=== PATIENT | male | born 1945 | race Caucasian/White ===

== ENCOUNTER → 2016-12-04 | Outpatient (CLI) | payer BC ==
[~2016-12-04] MED LIST: ADVIN10/60 INH; ALBU1AER9 INH; CPRDOTS OT; DICL1GEL28 TOP; HYDR12.56 PO; LSN40 PO; METO-648 PO; OMEP40CA41 PO; SNG10 PO; TAMS0.4C38 PO; XRL20 PO
== END | disposition home or self-care (01) ==
LOC: C.LABSPEC 16:48
PROVIDERS: ATTEND Internal Medicine
DX: K64.8 Other hemorrhoids (principal)

== ENCOUNTER → 2017-02-28 | Outpatient (CLI) | payer BC ==
[~2017-02-28] MED LIST changes: -METO-648 PO; +METO1TAB70 PO
[2017-02-28 09:53] LABS: ALT/SGPT 112 U/L (12-78); AST/SGOT 64 U/L (15-37); BLOOD UREA NITROGEN 11 mg/dl (7-18); BUN/CREATININE RATIO 12.2 (10-20); CARBON DIOXIDE 26 mmol/L (21-32); CHLORIDE 105 mmol/L (98-107); GLUCOSE 103 mg/dl (70-99); POTASSIUM 4.3 mmol/L (3.5-5.1); SODIUM 136 mmol/L (136-145)
[2017-02-28 09:56] LABS: CHOLESTEROL 168 mg/dl (0-200); CHOLESTEROL/HDL RATIO 3.7; HDL CHOLESTEROL 45 mg/dl; LDL CHOLESTEROL CALCULATED 94 mg/dl; TRIGLYCERIDES 144 mg/dl (0-150); VERY LOW DENSITY LIPOPROT CALC 29 mg/dl
[2017-02-28 10:05] LABS: BASO % 0.6 %; BASO ABS # 0.02 K/uL (0-0.2); COMPLETE YES; EOS % 6.3 %; HEMATOCRIT 39.2 % (42-52); IG% 0.3 %; LYMPH ABS # 1.04 K/uL (1.2-3.4); MEAN CELL VOLUME 94.9 fL (80-100); MEAN CORPUSCULAR HGB CONC 33.7 g/dl (32-36); MEAN PLATELET VOLUME 10.8 fL (7.4-10.4); MONO % 14.9 %; NEUT % 46.9 %; PLATELET COUNT 160 K/uL (130-400); RED BLOOD COUNT 4.13 M/uL (4.7-6.1); WHITE BLOOD COUNT 3.35 K/uL (4.8-10.8)
== END | disposition home or self-care (01) ==
LOC: C.LAB1850 07:32
PROVIDERS: ATTEND Internal Medicine Cardiovascular Disease
DX: E78.5 Hyperlipidemia, unspecified (principal); I10 Essential (primary) hypertension

== ENCOUNTER → 2017-09-20 | Outpatient (CLI) | payer BC ==
[~2017-09-20] MED LIST changes: -METO1TAB70 PO; +METO200T31 PO
== END | disposition home or self-care (01) ==
LOC: C.LAB1850 12:41
PROVIDERS: ATTEND Internal Medicine Cardiovascular Disease
DX: E78.5 Hyperlipidemia, unspecified (principal)

== ENCOUNTER 2025-04-26 21:30 | Inpatient (IN) ==
[2025-04-26] MEDS: ONDANSETRON INJ 2 MG/ML 2 ML VIAL IV STA (21:38)
[2025-04-26] MEDS: OPTIRAY 320 100ml IV ONE (21:49)
--- NOTE | 2025-04-26 22:00 | XRay Report ---
Exam(s): XR CXR 1 VIEW EXAM: XR Chest, 1 View CLINICAL HISTORY: Reason for exam: Trauma. TECHNIQUE: Frontal view of the chest. COMPARISON: No relevant prior studies available. FINDINGS: Lungs: Unremarkable. No consolidation. Pleural space: Unremarkable. No pneumothorax. Heart: Mild cardiomegaly. Mediastinum: Unremarkable. Normal mediastinal contour. Bones/joints: Severe degenerative arthritic changes seen at the glenohumeral joints. No acute fracture. Tubes, lines and devices: Pacemaker leads seen over the cardiac silhouette. IMPRESSION: No acute pulmonary process identified Electronically signed by: Jairo Khoury MD 04/26/25 21:59 PM
[2025-04-26 22:07] LABS: Hematocrit (blood only) 34.2 % (42.0-52.0); Hemoglobin 11.3 g/dl (14.0-18.0); Immature Granulocytes # (auto) 0.02 K/uL (0.01-0.20); Immature Granulocytes % (auto) 0.4 %; Mean Corpuscular Hemoglobin 32.0 pg (25.0-34.0); Mean Corpuscular Volume 96.9 fL (80.0-100.0); Platelet Count 260 K/uL (130-400); RDW Standard Deviation 51.0 fL (36.4-46.3); Red Blood Count 3.53 M/uL (4.70-6.10); White Blood Count 5.15 K/ul (4.8-10.8)
--- NOTE | 2025-04-26 22:10 | Emergency Department Note ---
Impression & Plan Laceration of scalp, Syncope and collapse ED Provider Note Provider: Richi Dawson MD CHIEF COMPLAINT: Head bleeding, fall, passed out HISTORY OF PRESENT ILLNESS: Patient is a 79-year-old gentleman significant past medical history including CAD, GERD, hearing loss, intracranial bleed/aneurysm rupture in 2010 status post right frontal craniotomy, short-term memory issues, BPH, kidney stone presenting here today with . Patient evidently fell towards beginning of March. Wound was closed with cem. Evidently bled a week or 2 ago and was seen here and sutures were placed. Noted this evening according to some bleeding from the top of the head and then he seems little bit off. She drove him here and assisted over the bench in front of the entrance and was going in to get additional assistance. According to security cameras patient evidently was on the bench began to seem wobbly and then fell over off the bench onto the ground. There is significant bleeding from his head and he seemed unresponsive initially. Immediately brought back as a trauma alert to room a 1. Patient awakens. Denies pain complaint. Seems a bit dazed. Does not report use of his Eliquis yet this evening. Staff assisted with evaluation and IV placement during this time the patient was rolled and had was cleaned and a small area of bleeding from hematoma in the back of the head was noted and pressure was held it was bandaged. During this the patient became nauseous vomited and syncopized briefly. He then quickly regained consciousness. present states he has been doing well until just this evening when he seemed a bit off and then noted increased swelling to the back of the head and the bleeding started. She brought him here for evaluation. He is not on aspirin but continues on the Plavix and Eliquis by her report. PAST MEDICAL HISTORY: As noted above MEDICATIONS: Reviewed home medications SOCIAL HISTORY: PHYSICAL EXAM: GENERAL: alert and oriented resting on stretcher. Seems a little bit drowsy initially. Head: Patient with blood all over the scalp and blood clots noted with some small occipital hematoma and mild tenderness here. Area cleaned with peroxide and seems show approximately 2 cm hematoma the occiput with 2 pinpoint areas of small bleeding here. EYES: No injection, discharge or icterus. PERRL, EOMI. NECK: Trachea midline. Supple no cervical spine tenderness ENT: Mucous membranes pink and moist. Pharynx without erythema or exudate. LUNGS: Airway patent. No retractions. Breath sounds clear with good air entry bilaterally. HEART: Regular rate and rhythm. No chest wall tenderness ABDOMEN: Soft and non-tender, without guarding or rebound. No flank tenderness. SKIN: Acyanotic, warm, dry, without rashes EXTREMITIES: Without swelling, tenderness or deformity NEUROLOGICAL: No focal deficits. No aphasia. No facial droop or slurred speech. Normal strength and tone in the extremities. Sensation to gross touch normal. Ambulatory. EK bpm atrially paced rhythm without PVC. QTc 452. No ST segment elevation or depression. CONTINUOUS CARDIAC MONITORING: was ordered and showed a heart rate of 60s bpm in atrially paced rhythm GCS 15. Patient's labobatory studies and imaging reviewed. Differential includes Fracture, dislocation, contusion, intra-abdominal, pneumothorax, intrathoracic, intracranial, neurologic, compartment syndrome, rhabdomyolysis, as well as other pathologies. IMPRESSION/MEDICAL DECISION MAKING: Patient transient loss of consciousness. Quickly regains. Given Zofran here. Bandaging to the head wound which seems rather small on initial emergent evaluation. Sent immediately for CT scans to look for intracranial bleed from the new fall. Laboratory studies are checked. Sinha scan ordered and although really the only complaint seems to be around the head. Does have a significant history with prior intracranial bleed and craniotomy. Use of antiplatelets and anticoagulants complicate his bleeding issue. ATLS primary and secondary survey were completed. Nexus negative and cervical collar was cleared clinically upon evaluation at 213. Blood work here shows a hemoglobin 11.3 down from approximately 15 earlier in the summer. Normal platelet count of 260. No severe electrolyte abnormalities signs of renal dysfunction today. CT of the head, cervical spine, chest abdomen pelvis per radiology report without evidence of significant new acute trauma other than scalp hematoma. With nursing did rebandage and appears to have stopped but new gauze and Octavio wrap to the head was applied. Discussed with him and findings. Possibly vomited from the syncope and transient blood loss. No believe he requires transfusion at this point not hemodynamically unstable. Did again have a syncope during his last evaluation here with dressing. Will bring in at this point given the syncope and drop in blood count to monitor his head wound for any further bleeding. Given a liter of IV fluid as blood pressures are in the 90s here later. DIAGNOSIS: Bleeding scalp wound, syncope, vomiting DISPOSITION: Hospitalist will evaluate Patient was agreeable with this plan as was his . Past Med/Surg History Problem List (Updated 04/26/25 @ 22:36 by Richi Dawson M.D.) Syncope and collapse (Acute) Laceration of scalp (Acute) CHI (closed head injury) (Acute) Internal carotid artery stent present Excessive cerumen in both ear canals Right shoulder pain Sacroiliitis Positive LUIS (antinuclear antibody) Inflammatory polyarthritis Abnormal LFTs History of intracranial hemorrhage 2009 per records Impaired fasting glucose History of aortic valve replacement Chronic anticoagulation (Acute) Allergic rhinitis Bicuspid aortic valve Gastroesophageal reflux disease Incomplete emptying of bladder Vitamin B12 deficiency CAD (coronary artery disease) Cognitive changes History of colon polyps Sensorineural hearing loss (SNHL) of both ears Skin lesion of left ear Statin myopathy (Acute) Medical History Thoracic aortic aneurysm Carotid stenosis, right Dizzy spells Psoriatic arthritis Cardiac pacemaker Mitral valve insufficiency Hypertension Benign prostatic hyperplasia with urinary obstruction and other lower urinary tract symptoms Asthma Nephrolithiasis Paroxysmal atrial fibrillation Hyperlipidemia Brain aneurysm Left hand weakness GERD (gastroesophageal reflux disease) NSVT (nonsustained ventricular tachycardia) Migratory polyarthritis Abnormal liver enzymes CHF (congestive heart failure) CAD (coronary artery disease), robinson coronary artery Aortic stenosis Surgical History History of cardiac cath History of colonoscopy Hx of inguinal hernia repair Hx of vasectomy History of cataract surgery History of mitral valve repair History of tonsillectomy and adenoidectomy History of cerebral aneurysm repair History of craniotomy History of heart valve replacement Family History Father Pancreatic malignant neoplasm Malignant Pancreatic Neoplasm Colorectal cancer Denies family history of Ovarian cancer Prostate cancer Myocardial infarction Breast cancer Social History Smoking Status: Never smoker Second Hand Exposure: No; Do You Dip or Chew Tobacco: No; Hx Alcohol Use: Yes Alcohol type: wine and hard liquor Hx Substance Use: No Preferred Language: Gibraltarian Communication Ability: Effective Visual Impairment: No Limitations Hearing Ability: Normal Director Summer Sessions Required: No Beliefs That Will Affect Care: None marital status: Current Living Situation: Spouse current occupational status: retired 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, 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 [employer] Feels Safe at Home: Yes Childhood Exposure to Second-Hand Smoke: Yes Dental Care, Regularly: Yes Physical Activity Frequency: 5-6 Times per Week Physical Activity Frequency Comment: walking 3-4 miles Seatbelt Use: always Sunscreen Use: No Assistive Devices: None Allergies Allergies Allergy/AdvReac Type Severity Reaction Status Date / Time Penicillins Allergy Intermediate RASH Verified 04/20/25 13:29 atorvastatin AdvReac Intermediate Muscle Pain Verified 04/20/25 13:29 rosuvastatin [From Crestor] AdvReac Intermediate Muscle Pain Verified 04/20/25 13:29 Home Meds Home Medications Medication Instructions Recorded Confirmed cyanocobalamin (vitamin B-12) 1,000 mcg PO QAM 11/08/20 04/26/25 1,000 mcg tablet (Vitamin B-12) aspirin 81 mg chewable tablet 81 mg PO QAM 12/16/24 04/26/25 clopidogrel 75 mg tablet 75 mg PO QAM 12/16/24 04/26/25 albuterol sulfate 90 mcg/actuation 2 puff inhalation Q4 PRN Shortness 04/12/25 04/26/25 aerosol inhaler Of Breath Or Wheezing amlodipine 10 mg tablet 10 mg PO QAM 04/26/25 04/26/25 Previous Rx's Medication Instructions Recorded fluticasone 250 mcg-salmeterol 50 1 inh inhalation BID #60 ea 05/04/24 mcg/dose blistr powdr for inhalation (Wixela Inhub) pravastatin 10 mg tablet 10 mg PO DAILY #90 tabs 06/19/24 metoprolol succinate 100 mg 100 mg PO BID #180 tabs 01/27/25 tablet,extended release 24 hr Taltz Autoinjector 80 mg/mL 80 mg subcut Q28D #1 mL 02/18/25 subcutaneous (ixekizumab) apixaban 5 mg tablet (Eliquis) 5 mg PO BID #180 tabs 02/23/25 tramadol 50 mg tablet 50 mg PO Q8H PRN pain #15 tabs 04/03/25 Results & Data (ED) Vital Signs Vital Signs - 24 hr 04/26/25 21:32 04/26/25 21:32 04/26/25 21:32 Temperature 36.6 C Temperature Source Pulse Rate 72 64 Pulse Rate [Apical] Respiratory Rate 23 20 Respiratory Effort / Characteristics Respiratory Depth Respiratory Pattern Blood Pressure 111/62 111/62 Blood Pressure [Right Arm] Blood Pressure Mean 78 Blood Pressure Mean [Right Arm] Pulse Oximetry 99 99 Oxygen Delivery Method Room Air Room Air Room Air Oxygen Flow Rate 0 Sepsis Recent Fever Within 48 Hours No Sepsis New/Unexplained Change in Mental Status No Sepsis Action Taken by Nursing No Action Required 04/26/25 21:32 04/26/25 21:44 04/26/25 21:45 Temperature 36.6 C Temperature Source Oral Pulse Rate 65 Pulse Rate [Apical] 64 Respiratory Rate 20 Respiratory Effort / Characteristics Non-Labored Spontaneous Respiratory Depth Normal Respiratory Pattern Regular Blood Pressure Blood Pressure [Right Arm] 111/62 Blood Pressure Mean Blood Pressure Mean [Right Arm] 78 Pulse Oximetry 98 98 Oxygen Delivery Method Room Air Room Air Oxygen Flow Rate Sepsis Recent Fever Within 48 Hours Sepsis New/Unexplained Change in Mental Status Sepsis Action Taken by Nursing 04/26/25 22:31 Temperature Temperature Source Pulse Rate Pulse Rate [Apical] 60 Respiratory Rate 20 Respiratory Effort / Characteristics Non-Labored Spontaneous Respiratory Depth Normal Respiratory Pattern Regular Blood Pressure Blood Pressure [Right Arm] 100/58 L Blood Pressure Mean Blood Pressure Mean [Right Arm] 72 Pulse Oximetry 98 Oxygen Delivery Method Room Air Oxygen Flow Rate Sepsis Recent Fever Within 48 Hours Sepsis New/Unexplained Change in Mental Status Sepsis Action Taken by Nursing Laboratory Data 04/26/25 21:36 04/26/25 21:36 Lab Results 04/26/25 04/26/25 04/26/25 Range/Units 21:36 21:37 21:47 WBC 5.15 (4.8-10.8) K/ul RBC 3.53 L (4.70-6.10) M/uL Hgb 11.3 L (14.0-18.0) g/dl POC Hgb 11.9 L (14.0-18.0) g/dl Hct 34.2 L (42.0-52.0) % POC Hct 35 L (42-52) % MCV 96.9 (80.0-100.0) fL MCH 32.0 (25.0-34.0) pg MCHC 33.0 (32.0-36.0) g/dL RDW Std Deviation 51.0 H (36.4-46.3) fL RDW Coeff of Andres 14.5 (11.5-14.5) % Plt Count 260 (130-400) K/uL MPV 10.4 (9.4-12.4) fL Immature Gran % (Auto) 0.4 % Neut % (Auto) 52.9 % Lymph % (Auto) 28.3 % Dubois % (Auto) 12.2 % Eos % (Auto) 5.6 % Baso % (Auto) 0.6 % Neut # (Auto) 2.72 (1.40-6.50) K/uL Lymph # (Auto) 1.46 (1.20-3.40) K/uL Dubois # (Auto) 0.63 H (0.11-0.59) K/uL Eos # (Auto) 0.29 (0.00-0.50) K/uL Baso # (Auto) 0.03 (0.00-0.20) K/uL Immature Gran # (Auto) 0.02 (0.01-0.20) K/uL PT 11.0 (9.0-12.0) Seconds INR 1.0 (0.9-1.1) APTT 24 (21-31) Seconds PTT Ratio 0.9 POC Sodium 137 (135-144) mmol/L Sodium 133 L (136-145) mmol/L POC Potassium 3.8 (3.3-5.0) mmol/L Potassium 3.6 (3.5-5.1) mmol/L POC Chloride 104 (101-112) mmol/L Chloride 104 (98-107) mmol/L Carbon Dioxide 21 (21-32) mmol/L POC Total CO2 20 L (24-31) mmol/L Anion Gap 8 (3-11) POC Anion Gap 17.0 (16-25) mmol/L POC BUN 14 (7-18) mg/dl BUN 15 (6-23) mg/dl Creatinine 0.90 (0.6-1.4) mg/dl POC Creatinine 1.1 (0.6-1.3) mg/dl Est Cr Clr Drug Dosing 64.3 ml/min eGFR 87.96 BUN/Creatinine Ratio 16.7 (10-20) Glucose 116 H (70-99(Fasting)) mg/dl POC Glucose (other) 115 H (70-99) mg/dl Calcium 8.9 (8.6-10.3) mg/dl POC Ioniz Calcium Jake 1.12 (1.12-1.32) mmol/l Total Bilirubin 0.5 (0.2-1.0) mg/dl AST 46 H (13-39) U/L ALT 50 (7-52) U/L Alkaline Phosphatase 69 (34-104) U/L Total Creatine Kinase 348 H (30-223) U/L Troponin I High Sens 14.7 (0-20) pg/ml Total Protein 7.0 (6.0-8.3) gm/dl Albumin 3.8 (3.4-5.0) gm/dl Globulin 3.2 (2.5-4.0) gm/dl Albumin/Globulin Ratio 1.2 (0.9-2) Lipase 44 (11-82) U/L Blood Type A Positive Antibody Screen NEGATIVE Administered Medications Sodium Chloride (Nss) 1,000 mls @ 999 mls/hr IV .Q1H1M ONE Stop: 04/26/25 23:27 Last Admin: 04/26/25 22:29 Dose: 999 mls/hr Documented By: KATIE Discontinued Medications Ioversol (Optiray 320 100ml) 90 ml IV ONCE ONE Stop: 04/26/25 21:49 Last Admin: 04/26/25 21:49 Dose: 90 ml Documented By: FARHANA Imaging Data Radiologist's Impression: Chest X-Ray 04/26/25 21:44 Exam(s): XR CXR 1 VIEW EXAM: XR Chest, 1 View CLINICAL HISTORY: Reason for exam: Trauma. TECHNIQUE: Frontal view of the chest. COMPARISON: No relevant prior studies available. FINDINGS: Lungs: Unremarkable. No consolidation. Pleural space: Unremarkable. No pneumothorax. Heart: Mild cardiomegaly. Mediastinum: Unremarkable. Normal mediastinal contour. Bones/joints: Severe degenerative arthritic changes seen at the glenohumeral joints. No acute fracture. Tubes, lines and devices: Pacemaker leads seen over the cardiac silhouette. IMPRESSION: No acute pulmonary process identified Electronically signed by: Jairo Khoury MD 04/26/25 21:59 PM Abdomen/Pelvis CT 04/26/25 21:45 Exam(s): CT ABDOMEN + PELVIS With Contrast IV Amt: 90 ml optiray 320 EXAM: CT Abdomen and Pelvis With Intravenous Contrast CLINICAL HISTORY: Reason for exam: Trauma. TECHNIQUE: Axial computed tomography images of the abdomen and pelvis with intravenous contrast. CTDI is 23.25 mGy and DLP is 750.75 mGy-cm. Automated exposure control was utilized for the study. A dose lowering technique was utilized adhering to the principles of ALARA. CONTRAST: Patient received 90 ml optiray 320 of IV contrast COMPARISON: 01/04/2023. FINDINGS: ABDOMEN: Liver: Hepatic steatosis. Gallbladder and bile ducts: Unremarkable. Pancreas: Unremarkable. Spleen: Unremarkable. Adrenals: Unremarkable. Kidneys and ureters: Unremarkable. No obstructing stones. No hydronephrosis. Stomach and bowel: Colonic diverticulosis without acute diverticulitis. PELVIS: Appendix: No findings to suggest acute appendicitis. Bladder: Unremarkable. Reproductive: Prostatomegaly. ABDOMEN and PELVIS: Intraperitoneal space: Unremarkable. No free air. No significant fluid collection. Bones/joints: No acute fracture. Soft tissues: Unremarkable. Vasculature: Aortobiiliac atherosclerotic calcifications. Lymph nodes: Unremarkable. IMPRESSION: 1. No traumatic injury. 2. Prostatomegaly. 3. Colonic diverticulosis without acute diverticulitis. 4. Hepatic steatosis. Electronically signed by: Hardik Ying MD 04/26/25 22:[address] 04/26/25 21:45 Exam(s): CT C SPINE EXAM: CT Cervical Spine Without Intravenous Contrast CLINICAL HISTORY: Reason for exam: Trauma. TECHNIQUE: Axial computed tomography images of the cervical spine without intravenous contrast. CTDI is 25.8 mGy and DLP is 480.73 mGy-cm. Automated exposure control was utilized for the study. A dose lowering technique was utilized adhering to the principles of ALARA. COMPARISON: No relevant prior studies available. FINDINGS: Vertebrae: No fracture or malalignment. Multilevel degenerative spondylosis. No critical canal stenosis. Soft tissues: Unremarkable. IMPRESSION: No fracture or malalignment. Electronically signed by: Hardik Ying MD 04/26/25 22:[address] 04/26/25 21:45 Exam(s): CT CHEST With Contrast IV Amt: 90 ml optiray 320 EXAM: CT Chest With Intravenous Contrast CLINICAL HISTORY: Reason for exam: Trauma. TECHNIQUE: Axial computed tomography images of the chest with intravenous contrast. CTDI is 24.7 mGy and DLP is 1279.17 mGy-cm. Automated exposure control was utilized for the study. A dose lowering technique was utilized adhering to the principles of ALARA. CONTRAST: Patient received 90 ml optiray 320 of IV contrast COMPARISON: No relevant prior studies available. FINDINGS: Lungs: Lungs are clear. No pulmonary contusion. Pleural space: No pleural effusion or pneumothorax. Heart: Status post aortic and mitral valve repair. Bones/joints: No acute findings. Soft tissues: Unremarkable. Vasculature: Unremarkable. No acute aortic syndrome. Lymph nodes: Unremarkable. Liver: Severe hepatic steatosis. IMPRESSION: No acute findings in the chest. Electronically signed by: Hardik Ying MD 04/26/25 22:[address] 04/26/25 21:45 Exam(s): CT HEAD Without Contrast EXAM: CT Head Without Intravenous Contrast CLINICAL HISTORY: Reason for exam: trauma, nausea. TECHNIQUE: Axial computed tomography images of the head/brain without intravenous contrast. CTDI is 36.55 mGy and DLP is 624.41 mGy-cm. Automated exposure control was utilized for the study. A dose lowering technique was utilized adhering to the principles of ALARA. COMPARISON: 04/12/2025 FINDINGS: Brain: No hemorrhage, extra-axial fluid collection, mass effect, or edema. Ventricles: Unremarkable. Bones/joints: Unremarkable. No fracture. Soft tissues: Scalp hematoma near the vertex. Sinuses: No acute sinusitis. Mastoid air cells: Unremarkable as visualized. IMPRESSION: 1. No acute intracranial abnormality. 2. Scalp hematoma near the vertex. Electronically signed by: Hardik Ying MD 04/26/25 22:17 PM Discharge Plan Visit Data Chief Complaint: Trauma Stated Complaint: HEAD INJURY WK AGO- BLEEDING ED Provider: Richi Dawson Discharge Problem: Laceration of scalp, Syncope and collapse Patient Disposition: Being Evaluated by Hospitalist Condition: Fair Forms Stand Alone Forms: Semmx Prescriptions Prescriptions: No Action metoprolol succinate 100 mg tablet extended release 24 hr 100 mg PO BID Qty: 180 3RF Taltz Autoinjector 80 mg/mL auto-injector 80 mg subcut Q28D Qty: 1 5RF Eliquis 5 mg tablet 5 mg PO BID Qty: 180 3RF fluticasone propion-salmeterol [Wixela Inhub] 250-50 mcg/dose blister with device 1 inh inhalation BID Qty: 60 11RF pravastatin 10 mg tablet 10 mg PO DAILY Qty: 90 3RF cyanocobalamin (vitamin B-12) [Vitamin B-12] 1,000 mcg tablet 1,000 mcg PO QAM aspirin 81 mg Tablet,Chewable 81 mg PO QAM clopidogrel 75 mg tablet 75 mg PO QAM albuterol sulfate 90 mcg/actuation Hfa Aerosol Inhaler 2 puff INHALATION Q4 PRN (Reason: Shortness Of Breath Or Wheezing) amlodipine 10 mg tablet 10 mg PO QAM tramadol 50 mg tablet 50 mg PO Q8H PRN (Reason: pain) Qty: 15 0RF Referrals Referrals: Kaci Preston MD [Primary Care Provider] -
--- NOTE | 2025-04-26 22:13 | CT Scan Report ---
Exam(s): CT CHEST With Contrast IV Amt: 90 ml optiray 320 EXAM: CT Chest With Intravenous Contrast CLINICAL HISTORY: Reason for exam: Trauma. TECHNIQUE: Axial computed tomography images of the chest with intravenous contrast. CTDI is 24.7 mGy and DLP is 1279.17 mGy-cm. Automated exposure control was utilized for the study. A dose lowering technique was utilized adhering to the principles of ALARA. CONTRAST: Patient received 90 ml optiray 320 of IV contrast COMPARISON: No relevant prior studies available. FINDINGS: Lungs: Lungs are clear. No pulmonary contusion. Pleural space: No pleural effusion or pneumothorax. Heart: Status post aortic and mitral valve repair. Bones/joints: No acute findings. Soft tissues: Unremarkable. Vasculature: Unremarkable. No acute aortic syndrome. Lymph nodes: Unremarkable. Liver: Severe hepatic steatosis. IMPRESSION: No acute findings in the chest. Electronically signed by: Hardik Ying MD 04/26/25 22:13 PM
--- NOTE | 2025-04-26 22:17 | CT Scan Report ---
Exam(s): CT HEAD Without Contrast EXAM: CT Head Without Intravenous Contrast CLINICAL HISTORY: Reason for exam: trauma, nausea. TECHNIQUE: Axial computed tomography images of the head/brain without intravenous contrast. CTDI is 36.55 mGy and DLP is 624.41 mGy-cm. Automated exposure control was utilized for the study. A dose lowering technique was utilized adhering to the principles of ALARA. COMPARISON: 04/12/2025 FINDINGS: Brain: No hemorrhage, extra-axial fluid collection, mass effect, or edema. Ventricles: Unremarkable. Bones/joints: Unremarkable. No fracture. Soft tissues: Scalp hematoma near the vertex. Sinuses: No acute sinusitis. Mastoid air cells: Unremarkable as visualized. IMPRESSION: 1. No acute intracranial abnormality. 2. Scalp hematoma near the vertex. Electronically signed by: Hardik Ying MD 04/26/25 22:17 PM
--- NOTE | 2025-04-26 22:22 | CT Scan Report ---
Exam(s): CT C SPINE EXAM: CT Cervical Spine Without Intravenous Contrast CLINICAL HISTORY: Reason for exam: Trauma. TECHNIQUE: Axial computed tomography images of the cervical spine without intravenous contrast. CTDI is 25.8 mGy and DLP is 480.73 mGy-cm. Automated exposure control was utilized for the study. A dose lowering technique was utilized adhering to the principles of ALARA. COMPARISON: No relevant prior studies available. FINDINGS: Vertebrae: No fracture or malalignment. Multilevel degenerative spondylosis. No critical canal stenosis. Soft tissues: Unremarkable. IMPRESSION: No fracture or malalignment. Electronically signed by: Hardik Ying MD 04/26/25 22:21 PM
[2025-04-26 22:23] LABS: Alanine Aminotransferase 50.0 U/L (7-52); Albumin Globulin Ratio 1.2 (0.9-2); Albumin Level 3.8 gm/dl (3.4-5.0); Alkaline Phosphatase 69.0 U/L (34-104); Anion Gap 8.0 (3-11); Bilirubin,Total 0.5 mg/dl (0.2-1.0); Blood Urea Nitrogen 15.0 mg/dl (6-23); Calcium 8.9 mg/dl (8.6-10.3); Carbon Dioxide 21.0 mmol/L (21-32); Chloride 104.0 mmol/L (98-107); Creatine Kinase 348.0 U/L (30-223); Creatinine Clr Calc Pharmacy 64.3 ml/min; Globulin 3.2 gm/dl (2.5-4.0); Glucose 116.0 mg/dl (70-99(Fasting)); Lipase 44.0 U/L (11-82); Potassium 3.6 mmol/L (3.5-5.1); Sodium 133.0 mmol/L (136-145); Total Protein 7.0 gm/dl (6.0-8.3)
--- NOTE | 2025-04-26 22:25 | CT Scan Report ---
Exam(s): CT ABDOMEN + PELVIS With Contrast IV Amt: 90 ml optiray 320 EXAM: CT Abdomen and Pelvis With Intravenous Contrast CLINICAL HISTORY: Reason for exam: Trauma. TECHNIQUE: Axial computed tomography images of the abdomen and pelvis with intravenous contrast. CTDI is 23.25 mGy and DLP is 750.75 mGy-cm. Automated exposure control was utilized for the study. A dose lowering technique was utilized adhering to the principles of ALARA. CONTRAST: Patient received 90 ml optiray 320 of IV contrast COMPARISON: 01/04/2023. FINDINGS: ABDOMEN: Liver: Hepatic steatosis. Gallbladder and bile ducts: Unremarkable. Pancreas: Unremarkable. Spleen: Unremarkable. Adrenals: Unremarkable. Kidneys and ureters: Unremarkable. No obstructing stones. No hydronephrosis. Stomach and bowel: Colonic diverticulosis without acute diverticulitis. PELVIS: Appendix: No findings to suggest acute appendicitis. Bladder: Unremarkable. Reproductive: Prostatomegaly. ABDOMEN and PELVIS: Intraperitoneal space: Unremarkable. No free air. No significant fluid collection. Bones/joints: No acute fracture. Soft tissues: Unremarkable. Vasculature: Aortobiiliac atherosclerotic calcifications. Lymph nodes: Unremarkable. IMPRESSION: 1. No traumatic injury. 2. Prostatomegaly. 3. Colonic diverticulosis without acute diverticulitis. 4. Hepatic steatosis. Electronically signed by: Hardik Ying MD 04/26/25 22:24 PM
[2025-04-26] MEDS: SODIUM CHLORIDE 0.9% 1,000 ML IV ONE (22:29)
[2025-04-26 22:44] LABS: INR 1.0 (0.9-1.1); Partial Thromboplastin Time 24 Seconds (21-31); Prothrombin Time 11.0 Seconds (9.0-12.0)
[2025-04-26] MEDS: RAPID SEQUENCE INDUCTION BAG ONE (23:28)
--- NOTE | 2025-04-26 23:30 | History & Physical Report ---
Date of Service April 26, 2025 Assessment & Plan (1) Syncope and collapse: (2) Anemia due to blood loss: (3) Laceration of scalp: (4) Chronic anticoagulation: Plan The patient is a 79-year-old male with a past medical history including internal carotid artery stent, presence of pacemaker, sacroiliitis, inflammatory polyarthritis, history of intracranial hemorrhage, history AVR, history of mitral valve annuloplasty, chronic anticoagulation, GERD, incomplete bladder emptying, CAD, SNHL bilaterally, and history of statin myopathy. The patient was initially seen in the emergency department on 04/12/2025 for a scalp laceration, and received 6 cem at that time. He had been doing well until earlier in the day today when he started having some leakage of blood. His had brought him to the emergency department this evening, and had him sitting on the bench outside the emergency department while she went in to get help. When she went back out, he was lying on the ground, and was bleeding more significantly from his scalp. He reports the blood was spurting out of the laceration. While in the emergency department he did have a syncopal episode as his wound was being flushed, and had accompanying nausea and vomiting. At this time he is awake and alert, speech is slightly slower than usual. He denies any focal weakness in arms or legs. Laboratories revealed a change in hemoglobin from 15.1 at baseline to 11.3 today, however, there was no hemoglobin performed on 04/12 when he was in the emergency department at his first bleeding event. Other significant laboratory normalities, CK 348, AST 46, troponin high normal at 14.7. Imaging included CT scan of the head which showed a scalp hematoma near the vertex, otherwise normal. CT scan of chest was negative. CT scan cervical spine was negative. CT scan of abdomen and pelvis showed prostatomegaly and hepatic steatosis, with no acute findings. Patient was then referred for evaluation for admission to [facility] service. He does also have a slight scrape to his left knee, but has completely full range of motion, and reports he does not feel he needs an x-ray. He reports an average of 2 alcoholic beverages daily. He did have pacer interrogation while in the emergency department, and reported battery life was 1 month. Syncope and collapse- The patient will be admitted to telemetry for serial cardiac enzymes, serial EKG's, cardiac rhythm monitoring Most recent echocardiogram on 03/29/2025 showed ejection fraction 60-65% with no change compared to 05/07/2024 CT scan of head shows scalp hematoma near the vertex CT scan of chest is negative CT scan of cervical spine is negative CT scan of abdomen pelvis shows prostatomegaly and hepatic steatosis Hemoglobin decreased from 15.1-11.3, but no hemoglobin drawn on 04/12 when patient was in with initial scalp laceration injury Place on neurochecks per protocol Anemia due to blood loss/on chronic anticoagulation- Hemoglobin 11.3 on admission, with most recent 15.1 Hold apixaban, aspirin and clopidogrel, will consult surgery for their opinion regarding restarting Bicuspid aortic valve status post AVR/status post MV annuloplasty/CAD/hypertension- Presently relatively hypotensive with blood pressure as low as 94/56 Hold amlodipine For now decrease metoprolol from 100 mg twice daily to 50 mg twice daily Status post 1 L normal saline bolus in the ED Plasma-Lyte at 80 mL/h x 1 L Holding apixaban, aspirin and clopidogrel as noted. Consult cardiology about timing for restarting Presence of pacemaker- Interrogation was normal Pacer battery noted to be 1 month or less life remaining Cardiology to address Alcohol use- Patient reports averaging 2 alcoholic beverages daily. Will not start AWSS protocol at this point, as patient is getting neurochecks for syncopal follow up Elevated creatinine kinase- Likely secondary to fall No signs of rhabdomyolysis Repeat labs in a.m.. History of Present Illness Chief Complaint: The patient was initially seen in the emergency department on 04/12/2025 for a scalp laceration, and received 6 cem at that time. He had been doing well until earlier in the day today when he started having some leakage of blood. His had brought him to the emergency department this evening, and had him sitting on the bench outside the emergency department while she went in to get help. When she went back out, he was lying on the ground, and was bleeding more significantly from his scalp. He reports the blood was spurting out of the laceration. While in the emergency department he did have a syncopal episode as his wound was being flushed, and had accompanying nausea and vomiting. At this time he is awake and alert, speech is slightly slower than usual. He denies any focal weakness in arms or legs. Laboratories revealed a change in hemoglobin from 15.1 at baseline to 11.3 today, however, there was no hemoglobin performed on 04/12 when he was in the emergency department at his first bleeding event. Other significant laboratory normalities, CK 348, AST 46, troponin high normal at 14.7. Imaging included CT scan of the head which showed a scalp hematoma near the vertex, otherwise normal. CT scan of chest was negative. CT scan cervical spine was negative. CT scan of abdomen and pelvis showed prostatomegaly and hepatic steatosis, with no acute findings. [facility] Primary Care Provider: Kaci Preston MD The patient is a 79-year-old male with a past medical history including internal carotid artery stent, presence of pacemaker, sacroiliitis, inflammatory polyarthritis, history of intracranial hemorrhage, history AVR, history of mitral valve annuloplasty, chronic anticoagulation, GERD, incomplete bladder emptying, CAD, SNHL bilaterally, and history of statin myopathy. The patient was initially seen in the emergency department on 04/12/2025 for a scalp laceration, and received 6 cem at that time. He had been doing well until earlier in the day today when he started having some leakage of blood. His had brought him to the emergency department this evening, and had him sitting on the bench outside the emergency department while she went in to get help. When she went back out, he was lying on the ground, and was bleeding more significantly from his scalp. He reports the blood was spurting out of the laceration. While in the emergency department he did have a syncopal episode as his wound was being flushed, and had accompanying nausea and vomiting. At this time he is awake and alert, speech is slightly slower than usual. He denies any focal weakness in arms or legs. Laboratories revealed a change in hemoglobin from 15.1 at baseline to 11.3 today, however, there was no hemoglobin performed on 04/12 when he was in the emergency department at his first bleeding event. Other significant laboratory normalities, CK 348, AST 46, troponin high normal at 14.7. Imaging included CT scan of the head which showed a scalp hematoma near the vertex, otherwise normal. CT scan of chest was negative. CT scan cervical spine was negative. CT scan of abdomen and pelvis showed prostatomegaly and hepatic steatosis, with no acute findings. [facility] was then [facility] He does also have a slight scrape to his left knee, but has completely full range of motion, and reports he does not feel he needs an x-ray. He reports an average of 2 alcoholic beverages daily. He did have pacer interrogation while in the emergency department, and reported battery life was 1 month. Allergies Allergy/AdvReac Type Severity Reaction Status Date / Time Penicillins Allergy Intermediate RASH Verified 04/20/25 13:29 atorvastatin AdvReac Intermediate Muscle Pain Verified 04/20/25 13:29 rosuvastatin [From Crestor] AdvReac Intermediate Muscle Pain Verified 04/20/25 13:29 Home Medications Medication Instructions Recorded Confirmed Type cyanocobalamin (vitamin B-12) 1,000 mcg PO QAM 11/08/20 04/26/25 History 1,000 mcg tablet (Vitamin B-12) fluticasone 250 mcg-salmeterol 50 1 inh inhalation BID #60 ea 05/04/24 04/26/25 Rx mcg/dose blistr powdr for inhalation (Wixela Inhub) pravastatin 10 mg tablet 10 mg PO DAILY #90 tabs 06/19/24 04/26/25 Rx aspirin 81 mg chewable tablet 81 mg PO QAM 12/16/24 04/26/25 History clopidogrel 75 mg tablet 75 mg PO QAM 12/16/24 04/26/25 History metoprolol succinate 100 mg 100 mg PO BID #180 tabs 01/27/25 04/26/25 Rx tablet,extended release 24 hr Taltz Autoinjector 80 mg/mL 80 mg subcut Q28D #1 mL 02/18/25 04/26/25 Rx subcutaneous (ixekizumab) apixaban 5 mg tablet (Eliquis) 5 mg PO BID #180 tabs 02/23/25 04/26/25 Rx tramadol 50 mg tablet 50 mg PO Q8H PRN pain #15 tabs 04/03/25 04/26/25 Rx albuterol sulfate 90 mcg/actuation 2 puff inhalation Q4 PRN Shortness 04/12/25 04/26/25 History aerosol inhaler Of Breath Or Wheezing amlodipine 10 mg tablet 10 mg PO QAM 04/26/25 04/26/25 History Past Med/Surg History Problem List (Updated 04/27/25 @ 02:15 by Good Del Real MD) Anemia due to blood loss Syncope and collapse (Acute) Laceration of scalp (Acute) CHI (closed head injury) (Acute) Internal carotid artery stent present Excessive cerumen in both ear canals Right shoulder pain Sacroiliitis Positive LUIS (antinuclear antibody) Inflammatory polyarthritis Abnormal LFTs History of intracranial hemorrhage 2009 per records Impaired fasting glucose History of aortic valve replacement Chronic anticoagulation (Acute) Allergic rhinitis Bicuspid aortic valve Gastroesophageal reflux disease Incomplete emptying of bladder Vitamin B12 deficiency CAD (coronary artery disease) Cognitive changes History of colon polyps Sensorineural hearing loss (SNHL) of both ears Skin lesion of left ear Statin myopathy (Acute) Medical History Thoracic aortic aneurysm Carotid stenosis, right Dizzy spells Psoriatic arthritis Cardiac pacemaker Mitral valve insufficiency Hypertension Benign prostatic hyperplasia with urinary obstruction and other lower urinary tract symptoms Asthma Nephrolithiasis Paroxysmal atrial fibrillation Hyperlipidemia Brain aneurysm Left hand weakness GERD (gastroesophageal reflux disease) NSVT (nonsustained ventricular tachycardia) Migratory polyarthritis Abnormal liver enzymes CHF (congestive heart failure) CAD (coronary artery disease), [place] coronary artery Aortic stenosis Surgical History History of cardiac cath History of colonoscopy Hx of inguinal hernia repair Hx of vasectomy History of cataract surgery History of mitral valve repair History of tonsillectomy and adenoidectomy History of cerebral aneurysm repair History of craniotomy History of heart valve replacement Family History Father Pancreatic malignant neoplasm Malignant Pancreatic Neoplasm Colorectal cancer Denies family history of Ovarian cancer Prostate cancer Myocardial infarction Breast cancer Social History Smoking Status: Never smoker Second Hand Exposure: No; Do You Dip or Chew Tobacco: No; Hx Alcohol Use: Yes Alcohol type: wine and hard liquor Hx Substance Use: No Preferred Language: Sinhala Communication Ability: Effective Visual Impairment: No Limitations Hearing Ability: Normal Senior Process Analyst Required: No Beliefs That Will Affect Care: None marital status: Current Living Situation: Spouse current occupational status: retired 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, 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 [employer] Feels Safe at Home: Yes Childhood Exposure to Second-Hand Smoke: Yes Dental Care, Regularly: Yes Physical Activity Frequency: 5-6 Times per Week Physical Activity Frequency Comment: walking 3-4 miles Seatbelt Use: always Sunscreen Use: No Assistive Devices: None Review of Systems Review of Systems: The patient denies chest pain, palpitations, shortness of breath, dyspnea on exertion, cough, lower extremity swelling, sore throat, fevers, chills, sweats, diarrhea , constipation, abdominal pain, pelvic pain, blood in urine or stool, dysuria, urinary frequency or urgency, focal weakness, numbness or tingling in arms or legs, generalized arthralgias or myalgias, back or neck pain, or night sweats. The review of systems is otherwise negative other than for that already noted above, and at least 10 systems have been reviewed. Physical Exam Physical Exam: The patient is awake, alert and oriented 3, well developed and well nourished, vertex scalp laceration bandaged, lying in bed and in no acute distress. HEENT--PERRL, EOMI, mucous membranes and oropharynx mildly dry. Neck--supple. No JVD. No bruits. Thyroid normal, trachea midline, no adenopathy. Heart--normal S1 and S2. No murmurs, rubs or gallops. Paced rhythm on monitor Lungs--clear bilaterally, no respiratory distress, no accessory muscle use. Abdomen--normal bowel sounds and soft. Nontender. Nondistended, no hernias or masses, no organomegaly. Extremities--no cyanosis or clubbing. No edema. There are good distal pulses b/l. Dermatologic--normal skin turgor, normal color, no abnormal lymph nodes, no rash. Neurologic--cranial nerves II through XII grossly intact. Speech appears slightly slowed, as noted by his Rheumatologic--normal range of motion. Psychiatric--normal affect. Results & Data Results & Data Vital Signs (Past 12 Hours) Vital Signs Temp Pulse Pulse Resp BP BP Pulse Ox 04/26/25 22:31 60 20 100/58 L 98 04/26/25 21:45 65 04/26/25 21:44 98 04/26/25 21:32 36.6 C 64 20 111/62 98 04/26/25 21:32 36.6 C 64 20 111/62 04/26/25 21:32 99 04/26/25 21:32 72 23 111/62 99 O2 Del Method O2 Flow Rate 04/26/25 22:31 Room Air 04/26/25 21:45 04/26/25 21:44 Room Air 04/26/25 21:32 Room Air 04/26/25 21:32 Room Air 0 04/26/25 21:32 Room Air 04/26/25 21:32 Room Air Laboratory Results Laboratory Results WBC 5.15 K/ul (4.8-10.8) 04/26/25 21:36 RBC 3.53 M/uL (4.70-6.10) L 04/26/25 21:36 Hgb 11.3 g/dl (14.0-18.0) L 04/26/25 21:36 POC Hgb 11.9 g/dl (14.0-18.0) L 04/26/25 21:37 Hct 34.2 % (42.0-52.0) L 04/26/25 21:36 POC Hct 35 % (42-52) L 04/26/25 21:37 MCV 96.9 fL (80.0-100.0) 04/26/25 21:36 MCH 32.0 pg (25.0-34.0) 04/26/25 21:36 MCHC 33.0 g/dL (32.0-36.0) 04/26/25 21:36 RDW Std Deviation 51.0 fL (36.4-46.3) H 04/26/25 21:36 RDW Coeff of Andres 14.5 % (11.5-14.5) 04/26/25 21:36 Plt Count 260 K/uL (130-400) 04/26/25 21:36 MPV 10.4 fL (9.4-12.4) 04/26/25 21:36 Immature Gran % (Auto) 0.4 % 04/26/25 21:36 Neut % (Auto) 52.9 % 04/26/25 21:36 Lymph % (Auto) 28.3 % 04/26/25 21:36 Blount % (Auto) 12.2 % 04/26/25 21:36 Eos % (Auto) 5.6 % 04/26/25 21:36 Baso % (Auto) 0.6 % 04/26/25 21:36 Neut # (Auto) 2.72 K/uL (1.40-6.50) 04/26/25 21:36 Lymph # (Auto) 1.46 K/uL (1.20-3.40) 04/26/25 21:36 Blount # (Auto) 0.63 K/uL (0.11-0.59) H 04/26/25 21:36 Eos # (Auto) 0.29 K/uL (0.00-0.50) 04/26/25 21:36 Baso # (Auto) 0.03 K/uL (0.00-0.20) 04/26/25 21:36 Immature Gran # (Auto) 0.02 K/uL (0.01-0.20) 04/26/25 21:36 PT 11.0 Seconds (9.0-12.0) 04/26/25 21:36 INR 1.0 (0.9-1.1) 04/26/25 21:36 APTT 24 Seconds (21-31) 04/26/25 21:36 PTT Ratio 0.9 04/26/25 21:36 POC Sodium 137 mmol/L (135-144) 04/26/25 21:37 Sodium 133 mmol/L (136-145) L 04/26/25 21:36 POC Potassium 3.8 mmol/L (3.3-5.0) 04/26/25 21:37 Potassium 3.6 mmol/L (3.5-5.1) 04/26/25 21:36 POC Chloride 104 mmol/L (101-112) 04/26/25 21:37 Chloride 104 mmol/L (98-107) 04/26/25 21:36 Carbon Dioxide 21 mmol/L (21-32) 04/26/25 21:36 POC Total CO2 20 mmol/L (24-31) L 04/26/25 21:37 Anion Gap 8 (3-11) 04/26/25 21:36 POC Anion Gap 17.0 mmol/L (16-25) 04/26/25 21:37 POC BUN 14 mg/dl (7-18) 04/26/25 21:37 BUN 15 mg/dl (6-23) 04/26/25 21:36 Creatinine 0.90 mg/dl (0.6-1.4) 04/26/25 21:36 POC Creatinine 1.1 mg/dl (0.6-1.3) 04/26/25 21:37 Est Cr Clr Drug Dosing 64.3 ml/min 04/26/25 21:36 eGFR 87.96 04/26/25 21:36 BUN/Creatinine Ratio 16.7 (10-20) 04/26/25 21:36 Glucose 116 mg/dl (70-99(Fasting)) H 04/26/25 21:36 POC Glucose (other) 115 mg/dl (70-99) H 04/26/25 21:37 Calcium 8.9 mg/dl (8.6-10.3) 04/26/25 21:36 POC Ioniz Calcium Jake 1.12 mmol/l (1.12-1.32) 04/26/25 21:37 Magnesium 2.3 mg/dl (1.7-2.4) 04/26/25 21:36 Total Bilirubin 0.5 mg/dl (0.2-1.0) 04/26/25 21:36 AST 46 U/L (13-39) H 04/26/25 21:36 ALT 50 U/L (7-52) 04/26/25 21:36 Alkaline Phosphatase 69 U/L (34-104) 04/26/25 21:36 Total Creatine Kinase 348 U/L (30-223) H 04/26/25 21:36 Troponin I High Sens 14.7 pg/ml (0-20) 04/26/25 21:36 Total Protein 7.0 gm/dl (6.0-8.3) 04/26/25 21:36 Albumin 3.8 gm/dl (3.4-5.0) 04/26/25 21:36 Globulin 3.2 gm/dl (2.5-4.0) 04/26/25 21:36 Albumin/Globulin Ratio 1.2 (0.9-2) 04/26/25 21:36 Lipase 44 U/L (11-82) 04/26/25 21:36 Blood Type A Positive 04/26/25:47 Antibody Screen NEGATIVE 04/26/25 21:47 Impressions Chest X-Ray 04/26/25 21:44 Exam(s): XR CXR 1 VIEW EXAM: XR Chest, 1 View CLINICAL HISTORY: Reason for exam: Trauma. TECHNIQUE: Frontal view of the chest. COMPARISON: No relevant prior studies available. FINDINGS: Lungs: Unremarkable. No consolidation. Pleural space: Unremarkable. No pneumothorax. Heart: Mild cardiomegaly. Mediastinum: Unremarkable. Normal mediastinal contour. Bones/joints: Severe degenerative arthritic changes seen at the glenohumeral joints. No acute fracture. Tubes, lines and devices: Pacemaker leads seen over the cardiac silhouette. IMPRESSION: No acute pulmonary process identified Electronically signed by: Jairo Khoury MD 04/26/25 21:59 PM Abdomen/Pelvis CT 04/26/25 21:45 Exam(s): CT ABDOMEN + PELVIS With Contrast IV Amt: 90 ml optiray 320 EXAM: CT Abdomen and Pelvis With Intravenous Contrast CLINICAL HISTORY: Reason for exam: Trauma. TECHNIQUE: Axial computed tomography images of the abdomen and pelvis with intravenous contrast. CTDI is 23.25 mGy and DLP is 750.75 mGy-cm. Automated exposure control was utilized for the study. A dose lowering technique was utilized adhering to the principles of ALARA. CONTRAST: Patient received 90 ml optiray 320 of IV contrast COMPARISON: 01/04/2023. FINDINGS: ABDOMEN: Liver: Hepatic steatosis. Gallbladder and bile ducts: Unremarkable. Pancreas: Unremarkable. Spleen: Unremarkable. Adrenals: Unremarkable. Kidneys and ureters: Unremarkable. No obstructing stones. No hydronephrosis. Stomach and bowel: Colonic diverticulosis without acute diverticulitis. PELVIS: Appendix: No findings to suggest acute appendicitis. Bladder: Unremarkable. Reproductive: Prostatomegaly. ABDOMEN and PELVIS: Intraperitoneal space: Unremarkable. No free air. No significant fluid collection. Bones/joints: No acute fracture. Soft tissues: Unremarkable. Vasculature: Aortobiiliac atherosclerotic calcifications. Lymph nodes: Unremarkable. IMPRESSION: 1. No traumatic injury. 2. Prostatomegaly. 3. Colonic diverticulosis without acute diverticulitis. 4. Hepatic steatosis. Electronically signed by: Hardik Ying MD 04/26/25 22:[address] 04/26/25 21:45 Exam(s): CT C SPINE EXAM: CT Cervical Spine Without Intravenous Contrast CLINICAL HISTORY: Reason for exam: Trauma. TECHNIQUE: Axial computed tomography images of the cervical spine without intravenous contrast. CTDI is 25.8 mGy and DLP is 480.73 mGy-cm. Automated exposure control was utilized for the study. A dose lowering technique was utilized adhering to the principles of ALARA. COMPARISON: No relevant prior studies available. FINDINGS: Vertebrae: No fracture or malalignment. Multilevel degenerative spondylosis. No critical canal stenosis. Soft tissues: Unremarkable. IMPRESSION: No fracture or malalignment. Electronically signed by: Hardik Ying MD 04/26/25 22:[address] 04/26/25 21:45 Exam(s): CT CHEST With Contrast IV Amt: 90 ml optiray 320 EXAM: CT Chest With Intravenous Contrast CLINICAL HISTORY: Reason for exam: Trauma. TECHNIQUE: Axial computed tomography images of the chest with intravenous contrast. CTDI is 24.7 mGy and DLP is 1279.17 mGy-cm. Automated exposure control was utilized for the study. A dose lowering technique was utilized adhering to the principles of ALARA. CONTRAST: Patient received 90 ml optiray 320 of IV contrast COMPARISON: No relevant prior studies available. FINDINGS: Lungs: Lungs are clear. No pulmonary contusion. Pleural space: No pleural effusion or pneumothorax. Heart: Status post aortic and mitral valve repair. Bones/joints: No acute findings. Soft tissues: Unremarkable. Vasculature: Unremarkable. No acute aortic syndrome. Lymph nodes: Unremarkable. Liver: Severe hepatic steatosis. IMPRESSION: No acute findings in the chest. Electronically signed by: Hardik Ying MD 04/26/25 22:[address] 04/26/25 21:45 Exam(s): CT HEAD Without Contrast EXAM: CT Head Without Intravenous Contrast CLINICAL HISTORY: Reason for exam: trauma, nausea. TECHNIQUE: Axial computed tomography images of the head/brain without intravenous contrast. CTDI is 36.55 mGy and DLP is 624.41 mGy-cm. Automated exposure control was utilized for the study. A dose lowering technique was utilized adhering to the principles of ALARA. COMPARISON: 04/12/2025 FINDINGS: Brain: No hemorrhage, extra-axial fluid collection, mass effect, or edema. Ventricles: Unremarkable. Bones/joints: Unremarkable. No fracture. Soft tissues: Scalp hematoma near the vertex. Sinuses: No acute sinusitis. Mastoid air cells: Unremarkable as visualized. IMPRESSION: 1. No acute intracranial abnormality. 2. Scalp hematoma near the vertex. Electronically signed by: Hardik Ying MD 04/26/25 22:17 PM Code Status & VTE Plan Code Status full code PG Care Time/CCT Total # of Minutes Spent Total Time Spent with Patient: Total time spent is greater than 50% in coordination of care (as documented) at patient's floor/unit and/or counseling patient: Coding Level of Care Code 21130 INT INP/OBS CARE 3/75MIN Diagnoses Syncope and collapse R55 Anemia due to blood loss D50.0 Laceration of scalp S01.01XA Chronic anticoagulation Z79.01
[2025-04-27 00:07] LABS: Magnesium 2.3 mg/dl (1.7-2.4)
[2025-04-27] MEDS: PLASMA-LYTE A 1,000 ML IV SCH (01:50)
[2025-04-27] MEDS ORDERED: ALBUTEROL HFA 8 GM INHALER INH PRN (02:23)
[2025-04-27] MEDS ORDERED: ACETAMINOPHEN 325 MG TAB PO PRN (02:23)
--- NOTE | 2025-04-27 03:10 | CT Scan Report ---
EXAM: CT head/brain wo con CLINICAL HISTORY: c/o left sided head/earache s/p fall TECHNIQUE: Axial non-contrast CT scan of the brain was performed from the skull base to the high parietal region with sagittal and coronal reconstructions. One of the following dose reduction techniques was utilized for this exam: automated exposure control, adjustment of the mA and/or kV according to patient size, or use of iterative reconstruction. COMPARISON: Compared with the previous CT dated 04/12/2025. FINDINGS: Brain Parenchyma: Mild, diffuse, bilateral periventricular deep white matter hypodensity is present, representing chronic ischemic changes. There is normal attenuation of the cerebellum. There is no evidence of acute infarct, hemorrhage, or mass effect. 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 Ventricular System: The ventricular system is prominent. Subarachnoid Spaces: Prominent peripheral CSF spaces are seen within the cortical sulci, basal cisterns, both Sylvian and interhemispheric fissures. There is no evidence of subarachnoid hemorrhage or extra-axial fluid collections. Cerebellum and Brainstem: No interval change is noted regarding the area of calcification seen in the vandana. Orbits: There is normal appearance of the globes, optic nerves, and extraocular muscles. There is no evidence of orbital masses or abnormal density. Sinuses: Paranasal sinuses are clear. There is no evidence of sinusitis or mucosal thickening. Mastoid Air Cells: Mastoid air cells are clear. There is no evidence of mastoiditis. Skull: There is a right frontal craniotomy. The previously described left parietal soft tissue swelling shows an increase in size, with formation of a well-localized collection measuring approximately 3 cm in diameter, showing leveling inside, and the dependent portion reads about 70 HU (not fully imaged). IMPRESSION: 1. The previously described left parietal soft tissue swelling (not fully imaged) shows an increase in size, with formation of a well-localized collection measuring approximately 3 cm in diameter, showing leveling inside, and the dependent portion reads about 70 HU, suggesting blood product of different ages (localized subgaleal hematoma). Clinical correlation is recommended. 2. Age-related cerebral involutional changes and mild white matter chronic ischemic changes. 3. There is no evidence of acute infarct or hemorrhage. However, MRI stroke protocol is better in detecting acute infarct, if clinically warranted. 4. There is no interval change regarding the area of calcification seen in the vandana. Electronically signed by Sergey Hurley 04-27-2025 03:10 AM
[2025-04-27 06:27] LABS: Appearance Urine Clear (Clear); Glucose Urine UA Negative (Negative)
[2025-04-27 06:48] LABS: Epithelial Cell Urine 0-2 /hpf (0-2)
[2025-04-27 07:36] VITALS: PULSE 61; RESP 18; TEMP 97.9
[2025-04-27] MEDS: FLUTICASONE/VILANTEROL 200/25MCG 14 PUFFS/INHALER INH SCH (07:45)
[2025-04-27] MEDS: METOPROLOL SUCC 50MG EXT REL TAB PO SCH (07:46)
[2025-04-27] MEDS: CYANOCOBALAMIN (B-12) 500 MCG TABLET PO SCH (07:47)
[2025-04-27] MEDS: PRAVASTATIN SOD 10 MG TAB PO SCH (07:48)
--- NOTE | 2025-04-27 07:55 | Hospitalist Progress Note ---
Date of Service April 27, 2025 Assessment & Plan (1) Syncope and collapse: (2) Anemia due to blood loss: (3) Laceration of scalp: (4) Chronic anticoagulation: Plan The patient is a 79-year-old male with a past medical history including internal carotid artery stent, presence of pacemaker, sacroiliitis, inflammatory polyarthritis, history of intracranial hemorrhage, history AVR, history of mitral valve annuloplasty, chronic anticoagulation, GERD, incomplete bladder emptying, CAD, SNHL bilaterally, and history of statin myopathy. The patient was seen in the emergency department on 04/12/2025 for a scalp laceration, and received 6 cem at that time. He had been doing well until earlier on the day of admission when he started having some bleeding from the repaired site, patient was waiting to be seen when he passed out and was found on the ground with significant bleeding coming from his previously repaired laceration. He did have pacer interrogation while in the emergency department, and reported battery life was 1 month. #Syncope and collapse-likely vasovagal from sidle blood Most recent echocardiogram on 03/29/2025 showed ejection fraction 60-65% with no change compared to 05/07/2024 CT scan of head shows scalp hematoma near the vertex CT scan of chest is negative CT scan of cervical spine is negative CT scan of abdomen pelvis shows prostatomegaly and hepatic steatosis Acute blood loss anemia, hemoglobin decreased from 15.1-11.3, #Acute blood loss anemia on chronic anticoagulation- Hemoglobin 11.3 on admission, with most recent 15.1 Hold apixaban, aspirin and clopidogrel, will consult surgery for their opinion regarding restarting #Bicuspid aortic valve status post AVR/status post MV annuloplasty/CAD/hypertension- Hold amlodipine For now decrease metoprolol from 100 mg twice daily to 50 mg twice daily Holding apixaban, aspirin and clopidogrel as noted. Consult cardiology about timing for restarting #Presence of pacemaker- Interrogation was normal Pacer battery noted to be 1 month or less life remaining #Alcohol use- Patient reports averaging 2 alcoholic beverages daily. Will not start AWSS protocol at this point, as patient is getting neurochecks for syncopal follow up Admission and Anticipated Discharge Date Admission Date: April 26, 2025 Results & Data Results & Data Vital Signs (Past 12 Hours) Vital Signs Temp Pulse Pulse Resp BP BP Pulse Ox 04/27/25 07:35 97.9 F 61 18 138/66 95 04/27/25 02:23 64 04/27/25 02:23 97.7 F 65 16 124/69 97 04/27/25 02:03 67 17 116/63 99 04/27/25 02:00 67 17 116/63 99 04/27/25 01:45 62 18 109/59 L 97 04/27/25 01:30 63 16 103/63 96 04/27/25 01:00 65 17 114/67 97 04/27/25 00:30 63 20 110/60 98 04/27/25 00:00 64 18 94/56 L 97 04/26/25 23:31 65 20 104/62 99 04/26/25 23:16 67 22 123/61 99 04/26/25 22:31 60 20 100/58 L 98 04/26/25 21:45 65 04/26/25 21:44 98 04/26/25 21:32 97.9 F 64 20 111/62 98 04/26/25 21:32 97.9 F 64 20 111/62 04/26/25 21:32 99 04/26/25 21:32 72 23 111/62 99 O2 Del Method O2 Flow Rate 04/27/25 07:35 Room Air 04/27/25 02:23 04/27/25 02:23 Room Air 04/27/25 02:03 Room Air 04/27/25 02:00 Room Air 04/27/25 01:45 04/27/25 01:30 04/27/25 01:00 Room Air 04/27/25 00:30 Room Air 04/27/25 00:00 04/26/25 23:31 Room Air 04/26/25 23:16 04/26/25 22:31 Room Air 04/26/25 21:45 04/26/25 21:44 Room Air 04/26/25 21:32 Room Air 04/26/25 21:32 Room Air 0 04/26/25 21:32 Room Air 04/26/25 21:32 Room Air PG Care Time/CCT Total # of Minutes Spent Total Time Spent with Patient: Total time spent is greater than 50% in coordination of care (as documented) at patient's floor/unit and/or counseling patient: Coding Diagnoses Syncope and collapse R55 Anemia due to blood loss D50.0 Laceration of scalp S01.01XA Chronic anticoagulation Z79.01
[2025-04-27 09:17] LABS: Hematocrit (blood only) 24.3 % (42.0-52.0); Hemoglobin 8.4 g/dl (14.0-18.0); Immature Granulocytes # (auto) 0.01 K/uL (0.01-0.20); Immature Granulocytes % (auto) 0.4 %; Mean Corpuscular Hemoglobin 33.9 pg (25.0-34.0); Mean Corpuscular Volume 98.0 fL (80.0-100.0); Platelet Count 160 K/uL (130-400); RDW Standard Deviation 52.0 fL (36.4-46.3); Red Blood Count 2.48 M/uL (4.70-6.10); White Blood Count 2.85 K/ul (4.8-10.8)
[2025-04-27 09:24] LABS: Albumin Level 3.1 gm/dl (3.4-5.0); Anion Gap 4.0 (3-11); Blood Urea Nitrogen 17.0 mg/dl (6-23); Calcium 8.4 mg/dl (8.6-10.3); Carbon Dioxide 25.0 mmol/L (21-32); Chloride 108.0 mmol/L (98-107); Creatine Kinase 181.0 U/L (30-223); Creatinine Clr Calc Pharmacy 74.8 ml/min; Glucose 140.0 mg/dl (70-99(Fasting)); Magnesium 2.1 mg/dl (1.7-2.4); Potassium 4.3 mmol/L (3.5-5.1); Sodium 137.0 mmol/L (136-145)
[2025-04-27 11:13] VITALS: BP 124/62; O2SAT 97
--- NOTE | 2025-04-27 14:56 | Discharge Summary ---
Discharge Summary Date of Service April 27, 2025 Principal Dx & Hospital Course #1 = Principal Diagnosis (1) Syncope and collapse: (2) Anemia due to blood loss: (3) Laceration of scalp: (4) Chronic anticoagulation: Plan The patient is a 79-year-old male with a past medical history including internal carotid artery stent, presence of pacemaker, sacroiliitis, inflammatory polyarthritis, history of intracranial hemorrhage, history AVR, history of mitral valve annuloplasty, chronic anticoagulation, GERD, incomplete bladder emptying, CAD, SNHL bilaterally, and history of statin myopathy. The patient was seen in the emergency department on 04/12/2025 for a scalp laceration, and received 6 cem at that time. He had been doing well until earlier on the day of admission when he started having some bleeding from the repaired site, patient was waiting to be seen when he passed out and was found on the ground with significant bleeding coming from his previously repaired laceration. He did have pacer interrogation while in the emergency department, and reported battery life was 1 month. #Syncope and collapse-likely vasovagal Most recent echocardiogram on 03/29/2025 showed ejection fraction 60-65% with no change compared to 05/07/2024 CT scan of head shows scalp hematoma near the vertex CT scan of chest is negative CT scan of cervical spine is negative CT scan of abdomen pelvis shows prostatomegaly and hepatic steatosis Acute blood loss anemia, hemoglobin decreased from 15.1-11.3- 8.4, no additional bleeding,no arrythmia, bp stable #Acute blood loss anemia on chronic anticoagulation- Hemoglobin 11.3 on admission, dropped to 8.4, clinicall stable Hold apixaban additional 2 days, aspirin and clopidogrel with recent TCAR in December recommend close outpt follow up ordered cbc for 2 days after dc to Dr Amaro #Bicuspid aortic valve status post AVR/status post MV annuloplasty/CAD/hypertension- amlodipine return to home metoprolol dosing Holding apixaban,restart aspirin and clopidogrel as noted. return to cardiology as outpt #Presence of pacemaker- Interrogation was normal Pacer battery noted to be 1 month or less life remaining Offered pt and to stay for another day for observation, they elected to be dc today Notes For Next Care Provider follow acute blood loss anemia and reassure that ok from [place] to restart apixiban in 2 days Admission HPI Per Admitting Provider The patient is a 79-year-old male with a past medical history including internal carotid artery stent, presence of pacemaker, sacroiliitis, inflammatory polyarthritis, history of intracranial hemorrhage, history AVR, history of mitral valve annuloplasty, chronic anticoagulation, GERD, incomplete bladder emptying, CAD, SNHL bilaterally, and history of statin myopathy. The patient was initially seen in the emergency department on 04/12/2025 for a scalp laceration, and received 6 cem at that time. He had been doing well until earlier in the day today when he started having some leakage of blood. His had brought him to the emergency department this evening, and had him sitting on the bench outside the emergency department while she went in to get help. When she went back out, he was lying on the ground, and was bleeding more significantly from his scalp. He reports the blood was spurting out of the laceration. While in the emergency department he did have a syncopal episode as his wound was being flushed, and had accompanying nausea and vomiting. At this time he is awake and alert, speech is slightly slower than usual. He denies any focal weakness in arms or legs. Laboratories revealed a change in hemoglobin from 15.1 at baseline to 11.3 today, however, there was no hemoglobin performed on 04/12 when he was in the emergency department at his first bleeding event. Other significant laboratory normalities, CK 348, AST 46, troponin high normal at 14.7. Imaging included CT scan of the head which showed a scalp hematoma near the vertex, otherwise normal. CT scan of chest was negative. CT scan cervical spine was negative. CT scan of abdomen and pelvis showed prostatomegaly and hepatic steatosis, with no acute findings. Patient was then referred for evaluation for admission to [facility]. He does also have a slight scrape to his left knee, but has completely full range of motion, and reports he does not feel he needs an x-ray. He reports an average of 2 alcoholic beverages daily. He did have pacer interrogation while in the emergency department, and reported battery life was 1 month. Discharge Exam pleasant in no distress head wound is with hematoma and eschar, no active bleeding cardiac is regular with murmur Discharge Plan Discharge Items Patient Disposition: Home - Self-Care Reason For Visit: SYNCOPE, ANEMIA DUE TO BLOOD LOSS Discharge Diagnosis: vasovagal syncope due to bleeding acute blood loss anemia Condition on Discharge: Fair Activity: Per Instructions section Activity Comment: limit strenusous activity for 5-7 days Non-emergency contact: Primary Care Provider Call non-emergency contact if: your symptoms worsen Follow-up/Referrals: Kaci Preston MD [Primary Care Provider] - 05/03/25 10:00 am (Primary Care hospital follow up scheduled on 05/03/25 at 10:00 with Marina MERRILL) Diet: Heart Healthy Ambulatory Orders: Complete Blood Count no Diff (Routine) Timeframe: 2 Days Location: Determined by Patient Ordered By: Shree Culver Addtl Attending Provider Instructions: please avoid re injury to your scalp, when washing use a gentle touch, avoid brushes or cervantes to area for a few weeks follow up with Dr Amaro if bleeding re occurs, use pressure or ice to help stop, if unsuccessful return to ER Addtl Business Lawyer Provider Instructions: please follow up with Dr Mckeon nurse to discuss your aspirin, Plavix and Eliquis consider a multivitamin with iron or eating some red meat to help build up your anemia please get blood work on 04/29/25 Pending Studies at Discharge: No Stand-Alone Forms: My [employer], Smoking Cessation Medications and DC Order Prescriptions: Continued metoprolol succinate 100 mg tablet extended release 24 hr 100 mg PO BID Qty: 180 3RF Taltz Autoinjector 80 mg/mL auto-injector 80 mg subcut Q28D Qty: 1 5RF fluticasone propion-salmeterol [Wixela Inhub] 250-50 mcg/dose blister with device 1 inh inhalation BID Qty: 60 11RF pravastatin 10 mg tablet 10 mg PO DAILY Qty: 90 3RF cyanocobalamin (vitamin B-12) [Vitamin B-12] 1,000 mcg tablet 1,000 mcg PO QAM aspirin 81 mg Tablet,Chewable 81 mg PO QAM clopidogrel 75 mg tablet 75 mg PO QAM albuterol sulfate 90 mcg/actuation Hfa Aerosol Inhaler 2 puff INHALATION Q4 PRN (Reason: Shortness Of Breath Or Wheezing) amlodipine 10 mg tablet 10 mg PO QAM tramadol 50 mg tablet 50 mg PO Q8H PRN (Reason: pain) Qty: 15 0RF Held Eliquis 5 mg tablet 5 mg PO BID Qty: 180 3RF Hold Instructions: Resume on 04/29/25. restart blood thinner in am 04/29/25 Discharge Orders: Discharge Order (Routine); Ordered 04/27/25 Ordered By: Shree Culver Admission Data Admit Date/Time: 04/26/25 23:51 Attending Provider: Shree Culver Admit Provider: Good Del Real Primary Care Provider: Kaci Preston V. Other Providers: Good Del Real; Srikanth Dinero Hospital Stay Data Consultations 04/26/25 22:51 ED Decision to Admit Stat 04/27/25 02:23 Consult Cardiology Routine Diagnostic Imagining Performed 04/26/25 21:45 CT abd pelvis IV con only Stat CT cervical spine wo con Stat CT chest diagnostic w con Stat CT head/brain wo con Stat 04/27/25 01:00 CT head/brain wo con Stat Pending Results Patient Have Any Pending Studies at Discharge: No Discharge Instructions Given to Patient (Per Discharging Provider) please avoid re injury to your scalp, when washing use a gentle touch, avoid brushes or cervantes to area for a few weeks follow up with Dr Amaro if bleeding re occurs, use pressure or ice to help stop, if unsuccessful return to ER Total Time Total Time Spent Total Time Spent (In Minutes): I personally have spent greater than 30 minutes of time on the patient discharge today including review of tests, documentation, exam, and discussing treatment plan moving forward with the patient. Coding Level of Care Code 99399 INP/OBS DISCH >30 MIN Diagnoses Syncope and collapse R55 Anemia due to blood loss D50.0 Laceration of scalp S01.01XA Chronic anticoagulation Z79.01
--- NOTE | 2025-04-29 06:18 | Electrocardiogram Report ---
Test Reason : Blood Pressure : */* mmHG Vent. Rate : 62 BPM Atrial Rate : 62 BPM P-R Int : 260 ms QRS Dur : 96 ms QT Int : 446 ms P-R-T Axes : 51 59 80 degrees QTcB Int : 452 ms Atrial-paced rhythm with prolonged AV conduction Septal infarct (cited on or before 12-Apr-2025) Abnormal ECG When compared with ECG of 12-Apr-2025 21:55, No significant change was found Confirmed by Glen Bunch ([id number]) on 04/29/2025 6:17:46 AM Referred By: REFERRED SELF Confirmed By: Glen Bunch
--- NOTE | 2025-04-29 06:18 | Electrocardiogram Report ---
Test Reason : Blood Pressure : */* mmHG Vent. Rate : 67 BPM Atrial Rate : 67 BPM P-R Int : 180 ms QRS Dur : 92 ms QT Int : 410 ms P-R-T Axes : 75 45 70 degrees QTcB Int : 433 ms Normal sinus rhythm Septal infarct (cited on or before 12-Apr-2025) Nonspecific ST abnormality Abnormal ECG When compared with ECG of 26-Apr-2025 22:00, Sinus rhythm has replaced Electronic atrial pacemaker Confirmed by Glen Bunch ([id number]) on 04/29/2025 6:18:29 AM Referred By: REFERRED SELF Confirmed By: Glen Bunch
--- NOTE | 2025-04-29 07:08 | Coding Query ---
CODING QUERY To promote full compliance with coding requirements relating to patient care, provider participation is requested in all cases of inker and opaquer uncertainty. Please assist us with the question(s) below: Coding Question(s): The Discharge Summary documents, regarding syncope, " vasovagal syncope due to bleeding". Please specify regarding the bleeding that is causing syncope during this admission: ( ) Bleeding is from complication of previous suture repair of previous scalp laceration with re-bleeding ( ) Bleeding is an adverse effect from chronic anticoagulation (xxx ) Bleeding is from new hematoma of scalp after falling off bench ( ) Bleeding is from Other: Please specify Physician's Response(s): Thank you Shavon Arana Principal Diagnosis: "that condition established after study, to be chiefly responsible for occasioning the admission of the patient to the hospital for care." Co-Existing Principal Diagnosis: "when two or more diagnoses equally meet the criteria for principal diagnosis as determined by the circumstances of admission, diagnostic work up, and/or therapy provided, and the Alphabetic Index, Tabular List, or another coding guideline does not provide sequencing direction, any one of the diagnoses may be sequenced first." "When the physician has documented what appears to be a current diagnosis in the body of the record, but has not included the diagnosis in the final diagnostic statement, the physician should be asked whether the diagnosis should be added." (Source [facility]oding [facility] 2 QTR90. p3-4) BECKY
== END 2025-04-27 17:55 | disposition home or self-care (01) | DRG 605 ==
LOC: ED 21:30 → SUATTDRO 23:51 → 2E 23:51

== ENCOUNTER 2025-05-04 10:38 | Inpatient (IN) ==
--- NOTE | 2025-05-04 11:06 | Emergency Department Note ---
Impression & Plan Bacteremia due to Enterococcus, Acute UTI, Acute pain of right hip ED Provider Note Name: LIBRA DUONG Age: 79 Sex: Male Arrives Via: Walk-In Informant: Patient, family ED Provider: Galen Bales MD Chief Complaint: Positive blood culture Impression: As per impressions above Medical Decision Making: Pleasant 79-year-old gentleman who had a syncopal event a week ago and spent some time in the hospital. He was then seen 2 days ago for UTI-like symptoms. Cultures had been obtained at that time. He then started on Cipro and discharged home. Notes since getting home he has been having some worsening right hip pain but otherwise no acute other concerning symptoms. Blood cultures ended up growing out 1 bottle of Enterococcus but he is also growing the same bacteria out of his urine. This must be presumed a positive blood culture at this point. Patient does not appear overtly septic on arrival though he is likely bacteremic. We proceeded to repeat the blood cultures along with getting a septic workup. He is not hypotensive he does not have an elevated lactate do not feel that 30/kg IV fluids is indicated in this patient. Patient was discussed with pharmacist who advised he be started on ertapenem and daptomycin IV which I think is a reasonable approach. Patient does have some right hip pain. There is no clear evidence of true septic joint quite yet and x-rays are just showing some osteoarthritis. Clearly this will need further workup and evaluation but given clear plan for hospitalization will defer to hospitalist team for management. Triage/Nursing Notes reviewed by Me External Chart Review by me: Reviewed a discharge summary note from 04/27/2025 discussing patient's recent hospitalization stay Differential: Viral syndrome, UTI, endocarditis, septic joint, pneumonia, influenza, meningitis, urinary tract infection, sepsis, bacteremia, as well as other pathologies. Vital Signs: reviewed and remarkable for no significant abnormalities Interventions: Vancomycin IV Labs:ED labs Reviewed by me and remarkable for elevated procalcitonin Imaging:Chest x-ray as per my interpretation no infiltrate or effusion appreciated EKG:As per my interpretation. Indication illness. Normal sinus rhythm at 84 bpm QTc of 415. There is no ectopy nor ischemia. When compared EKG 27 April 2025 there is no significant change. Cardiac/Tele Monitoring: Cardiac Monitoring: An Order was placed for continuous cardiac monitoring. The monitor shows a rate of 80 with a normal sinus rhythm. Consults:Discussed with hospitalist who will further evaluate and Plan: Disposition:Hospitalization. Condition: Fair History of Present Illness: 79-year-old gentleman arrives for evaluation illness. Patient notes that he has had a complicated last month with a fall a few weeks ago following a syncopal event and head injury. He was hospitalized and discharged. He notes he has been feeling creasing weak and some urinary burning thus came to the ER 2 days ago. He was diagnosed with a UTI. He was started on Cipro. Patient states he took the Cipro yesterday but he has been developing worsening right hip pain. He feels like the hip pain was worse after taking the Cipro and thus he has not taken it again. This morning he received a call from the ER advising him to come back as he is now growing blood culture positive Enterococcus. He also is growing Enterococcus out of his urine. Patient denies any current fevers, chills, nausea, vomiting. He has not had any falls, trauma, injuries since the fall a few weeks ago. He is not having any lightheadedness or syncope. He just feels very weak and tired. Does have a bit of urinary burning still. No diarrhea. Past Medical History:See Below Home Medications:See Below Allergies: Penicillins (rash as a child), atorvastatin, rosuvastatin Vitals:Blood Pressure: 173/82, Pulse 85, RR 18, T 36.7C, O2 97% on RA Physical Exam: GENERAL: Patient is tired appearing and in minimal distress. HEAD: Healing hematoma over top of head. No fluctuance, no drainage, no TTP RESPIRATORY: No dyspnea. Clear to auscultation and equal bilaterally. CARDIOVASCULAR: Regular rate and rhythm.No murmur appreciated. GASTROINTESTINAL: Abdomen soft, non-tender, no peritonitis. EXTREMITIES: Discomfort with lifting right leg in hip without TTP. Otherwise normal motion all extremities, no cyanosis, no edema. NEUROLOGIC: Alert and oriented. No focal neurologic deficits appreciated SKIN: No rash, no jaundice, no diaphoresis. PSYCH: Appropriate GCS: 15 ED Course: Times/Reassessments: Patient stable on repeat evaluation Galen Bales MD Past Med/Surg History Problem List (Updated 05/06/25 @ 05:51 by Galen Bales MD) Acute pain of right hip (Acute) Dizziness (Acute) Left parietal scalp hematoma (Acute) Right hip pain UTI (urinary tract infection) Bacteremia due to Enterococcus (Acute) Nausea (Acute) Dehydration (Acute) Acute UTI (Acute) Hyperlipidemia statin intolerance Hypertension Balance problems Frequent falls Internal carotid artery stent present Excessive cerumen in both ear canals Sacroiliitis Positive LUIS (antinuclear antibody) Inflammatory polyarthritis Abnormal LFTs History of intracranial hemorrhage 2009 per records Impaired fasting glucose History of aortic valve replacement Allergic rhinitis Bicuspid aortic valve Gastroesophageal reflux disease Incomplete emptying of bladder Vitamin B12 deficiency CAD (coronary artery disease) Cognitive changes History of colon polyps Sensorineural hearing loss (SNHL) of both ears Skin lesion of left ear Statin myopathy (Acute) Medical History (Updated 05/06/25 @ 05:51 by Galen Bales MD) Episode of syncope Chronic anticoagulation Right shoulder pain Laceration of scalp Thoracic aortic aneurysm mild aneurysmal dilatation of the visualized ascending thoracic aorta which measures up to 4.1 cm per 01/04/23 A/P CT scan Carotid stenosis, right 80% stenosis of right ICA Dizzy spells Intermittent x two years per vascular records Psoriatic arthritis Follows with rheum Cardiac pacemaker s/p complete heart block Jul 2011- DDDR pacemaker Mitral valve insufficiency s/p Jordyn-Camarena mitral valve ring, #28, July 2011 Benign prostatic hyperplasia with urinary obstruction and other lower urinary tract symptoms Asthma Nephrolithiasis passed on own Paroxysmal atrial fibrillation Dx 2009> pacer/ Xarelto Brain aneurysm - with repair> [facility] > was in hospital for 12 weeks > 2009 - stable findings following right frontal craniotomy per 10/[address] - CT angiogram 02/03/2013- post surgical changes - no longer needs to follow with neuro per PCP office visit 11/2024 Left hand weakness 2022- PCP recommended PT Rheum ordered EMG testing at 11/2024 appt GERD (gastroesophageal reflux disease) hx> none at present NSVT (nonsustained ventricular tachycardia) Migratory polyarthritis Abnormal liver enzymes stable x years per PCP records; daily alcohol use CHF (congestive heart failure) follows with Dr. Dinero EF 60-65% on 04/2024 ECHO CAD (coronary artery disease), [place] coronary artery - non interveneable RCA, July 2011 - 30 to 40% LAD and OM 3, small nondominant RCA with moderate disease, April 2018 Aortic stenosis severe secondary to bicuspid AV Jordyn-Camarena pericardial AVR #21 (2011) Later TAVR 2018 Surgical History History of cardiac cath 2018 no stents History of colonoscopy Hx of inguinal hernia repair Hx of vasectomy History of cataract surgery bilat History of mitral valve repair 2012 History of tonsillectomy and adenoidectomy History of cerebral aneurysm repair 2010 History of craniotomy 2009 (brain aneurysm) History of heart valve replacement 2012= AVR > [place] Later TAVR in 2018 in [place] Family History Father Pancreatic malignant neoplasm Malignant Pancreatic Neoplasm Colorectal cancer Denies family history of Ovarian cancer Prostate cancer Myocardial infarction Breast cancer Social History Smoking Status: Never smoker Second Hand Exposure: No; Do You Dip or Chew Tobacco: No; Hx Alcohol Use: Yes Alcohol type: wine and hard liquor Hx Substance Use: No Preferred Language: Italian Communication Ability: Effective Visual Impairment: No Limitations Hearing Ability: Normal Counter Helper Required: No Beliefs That Will Affect Care: None marital status: Current Living Situation: Spouse current occupational status: retired 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, 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 [employer] Feels Safe at Home: Yes Childhood Exposure to Second-Hand Smoke: Yes Dental Care, Regularly: Yes Physical Activity Frequency: 5-6 Times per Week Physical Activity Frequency Comment: walking 3-4 miles Seatbelt Use: always Sunscreen Use: No Assistive Devices: Cane, Walker and Wheelchair Allergies Allergies Allergy/AdvReac Type Severity Reaction Status Date / Time Penicillins Allergy Intermediate RASH Verified 04/20/25 13:29 atorvastatin AdvReac Intermediate Muscle Pain Verified 04/20/25 13:29 rosuvastatin [From Crestor] AdvReac Intermediate Muscle Pain Verified 04/20/25 13:29 Home Meds Home Medications Medication Instructions Recorded Confirmed cyanocobalamin (vitamin B-12) 1,000 mcg PO QAM 11/08/20 05/04/25 1,000 mcg tablet (Vitamin B-12) clopidogrel 75 mg tablet 75 mg PO QAM 12/16/24 05/04/25 albuterol sulfate 90 mcg/actuation 2 puff inhalation Q4 PRN Shortness 04/12/25 05/04/25 aerosol inhaler Of Breath Or Wheezing amlodipine 10 mg tablet 10 mg PO QAM 04/26/25 05/04/25 Previous Rx's Medication Instructions Recorded pravastatin 10 mg tablet 10 mg PO DAILY #90 tabs 06/19/24 metoprolol succinate 100 mg 100 mg PO BID #180 tabs 01/27/25 tablet,extended release 24 hr Taltz Autoinjector 80 mg/mL 80 mg subcut Q28D #1 mL 02/18/25 subcutaneous (ixekizumab) apixaban 5 mg tablet (Eliquis) 5 mg PO BID #180 tabs 02/23/25 fluticasone 250 mcg-salmeterol 50 1 inh inhalation BID #60 ea 04/29/25 mcg/dose blistr powdr for inhalation (Wixela Inhub) ciprofloxacin HCl 500 mg tablet 500 mg PO Q12H #20 tabs 05/02/25 Results & Data (ED) Vital Signs Vital Signs - 24 hr 05/04/25 10:45 05/04/25 10:53 05/04/25 11:02 Temperature 36.7 C Temperature Source Temporal Artery Scan Pulse Rate 85 77 Pulse Rate [Right Finger] 86 Pulse Rhythm Regular Pulse Rhythm [Right Finger] Regular Pulse Strength [Right Finger] Normal Respiratory Rate 18 18 19 Respiratory Effort / Characteristics Non-Labored Spontaneous Non-Labored Spontaneous Respiratory Depth Normal Normal Respiratory Pattern Regular Blood Pressure 173/82 H Blood Pressure [Right Arm] 174/82 H Blood Pressure Mean 112 Blood Pressure Mean [Right Arm] 112 Blood Pressure Position [Right Arm] Sitting Pulse Oximetry 97 95 99 Oxygen Delivery Method Room Air Room Air Room Air Sepsis Recent Fever Within 48 Hours No Sepsis New/Unexplained Change in Mental Status No Sepsis Action Taken by Nursing No Action Required 05/04/25 11:02 05/04/25 11:14 Temperature Temperature Source Pulse Rate 93 H Pulse Rate [Right Finger] 86 Pulse Rhythm Pulse Rhythm [Right Finger] Regular Pulse Strength [Right Finger] Normal Respiratory Rate 19 Respiratory Effort / Characteristics Non-Labored Spontaneous Respiratory Depth Normal Respiratory Pattern Regular Blood Pressure Blood Pressure [Right Arm] 174/82 H Blood Pressure Mean Blood Pressure Mean [Right Arm] 112 Blood Pressure Position [Right Arm] Sitting Pulse Oximetry 100 Oxygen Delivery Method Room Air Sepsis Recent Fever Within 48 Hours Sepsis New/Unexplained Change in Mental Status Sepsis Action Taken by Nursing Laboratory Data 05/04/25 11:23 05/04/25 11:23 Lab Results 05/04/25 05/04/25 Range/Units 11:23 11:46 WBC 4.98 (4.8-10.8) K/ul RBC 2.81 L (4.70-6.10) M/uL Hgb 9.5 L (14.0-18.0) g/dl Hct 28.3 L (42.0-52.0) % MCV 100.7 H (80.0-100.0) fL MCH 33.8 (25.0-34.0) pg MCHC 33.6 (32.0-36.0) g/dL RDW Std Deviation 57.2 H (36.4-46.3) fL RDW Coeff of Andres 15.5 H (11.5-14.5) % Plt Count 153 (130-400) K/uL MPV 11.0 (9.4-12.4) fL Immature Gran % (Auto) 0.8 % Neut % (Auto) 75.1 % Lymph % (Auto) 6.4 % [place] % (Auto) 17.3 % Eos % (Auto) 0.2 % Baso % (Auto) 0.2 % Neut # (Auto) 3.74 (1.40-6.50) K/uL Lymph # (Auto) 0.32 L (1.20-3.40) K/uL [place] # (Auto) 0.86 H (0.11-0.59) K/uL Eos # (Auto) 0.01 (0.00-0.50) K/uL Baso # (Auto) 0.01 (0.00-0.20) K/uL Immature Gran # (Auto) 0.04 (0.01-0.20) K/uL VBG pH 7.37 (7.36-7.41) VBG pCO2 37 L (38-50) mmHg VBG pO2 36 mmHg VBG HCO3 21 mmol/L VBG O2 Saturation < 60.0 % VBG Base Excess -3.5 mEq/L Sodium 131 L (136-145) mmol/L Potassium 4.2 (3.5-5.1) mmol/L Chloride 102 (98-107) mmol/L Carbon Dioxide 22 (21-32) mmol/L Anion Gap 7 (3-11) BUN 17 (6-23) mg/dl Creatinine 0.78 (0.6-1.4) mg/dl Est Cr Clr Drug Dosing Not Reportable eGFR 91.85 BUN/Creatinine Ratio 21.8 H (10-20) Glucose 130 H (70-99(Fasting)) mg/dl Lactate 1.7 (0.4-2.0) mmol/L Calcium 8.9 (8.6-10.3) mg/dl Magnesium 2.0 (1.7-2.4) mg/dl Total Bilirubin 0.7 (0.2-1.0) mg/dl Direct Bilirubin 0.2 (0-0.2) mg/dl AST 39 (13-39) U/L ALT 46 (7-52) U/L Alkaline Phosphatase 65 (34-104) U/L Troponin I High Sens 17.6 (0-20) pg/ml Total Protein 7.3 (6.0-8.3) gm/dl Albumin 3.9 (3.4-5.0) gm/dl Procalcitonin 6.14 H (0-0.5) ng/ml Urine Color Yellow Urine Appearance Clear (Clear) Urine pH 7.5 (4.5-7.5) Ur Specific [place] 1.014 (1.000-1.030) Urine Protein Negative (Negative) Urine Glucose (UA) Negative (Negative) Urine Ketones Trace H (Negative) Urine Blood Negative (Negative) Urine Nitrite Negative (Negative) Urine Bilirubin Negative (Negative) Urine Urobilinogen Negative (Negative) Ur Leukocyte Esterase Trace H (Negative) Urine WBC (Auto) 0-5 (0-5) /hpf Urine RBC (Auto) 0-2 (0-2) /hpf U Hyaline Cast (Auto) 0-2 (0-2) /lpf U Epithel Cells (Auto) 0-2 (0-2) /hpf Urine Bacteria (Auto) None Seen (None Seen) Urine Comment Enterococc faecalis PCR DETECTED A (NotDetected) Toribio/B-Vanco Res Genes VRE Not Detected (NotDetected) Bld Cult ID Panel PCR See PCR Comment (NotDetected) Administered Medications Hydrocodone Bitart/Acetaminophen (Hydrocodone/Acetaminophen 10/325 Tab) 1 tab PO Q6H PRN PRN Reason: Pain Stop: 05/09/25 16:13 Last Admin: 05/05/25 16:26 Dose: 1 tab Documented By: MILEY Amlodipine Besylate (Amlodipine Besylate 5 Mg Tab) 10 mg PO [facility] Stop: 06/04/25 08:59 Last Admin: 05/05/25 12:10 Dose: 10 mg Documented By: MILEY Clopidogrel Bisulfate (Clopidogrel Bisulfate 75 Mg Tab) 75 mg PO [facility] Stop: 06/04/25 08:59 Last Admin: 05/05/25 12:10 Dose: 75 mg Documented By: MILEY Cyanocobalamin (Cyanocobalamin (B-12) 500 Mcg Tablet) 1,000 mcg PO [facility] Stop: 06/04/25 08:59 Last Admin: 05/05/25 12:10 Dose: 1,000 mcg Documented By: MILEY Fluticasone/Vilanterol (Fluticasone/Vilanterol 200/25mcg 14 Puffs/Inhaler) 1 puffs INH DAILY [facility]; Protocol Stop: 06/04/25 08:59 Last Admin: 05/05/25 12:10 Dose: 1 puffs Documented By: MILEY Daptomycin 700 mg/ Syringe 14 mls @ 7 mls/min IV Q24H [facility]; Protocol Stop: 05/18/25 15:59 Last Admin: 05/05/25 15:30 Dose: 7 mls/min Documented By: Admin: 05/04/25 16:36 Dose: 7 mls/min Documented By: TARSHA Metoprolol Succinate (Metoprolol Succ 50mg Ext Rel Tab) 100 mg PO BID [facility] Stop: 06/03/25 20:59 Last Admin: 05/05/25 20:17 Dose: 100 mg Documented By: Admin: 05/05/25 12:10 Dose: 100 mg Documented By: Admin: 05/04/25 22:36 Dose: 100 mg Documented By: BARBARA Pravastatin Sodium (Pravastatin Sod 10 Mg Tab) 10 mg PO DAILY [facility] Stop: 06/04/25 08:59 Last Admin: 05/05/25 12:10 Dose: 10 mg Documented By: MILEY Discontinued Medications Hydrocodone Bitart/Acetaminophen (Hydrocodone/Acetaminophen 10/325 Tab) 1 tab PO ONCE ONE Stop: 05/04/25 12:34 Last Admin: 05/04/25 13:08 Dose: 1 tab Documented By: THERESA Benzocaine/Butamben/Tetracaine HCl (Benzocaine/Tetracain/Butam 50 Appln/5 Gm Can) Confirm Administered Dose 50 appln EXT .STK-MED ONE Stop: 05/05/25 10:28 Last Admin: 05/05/25 12:54 Dose: Not Given Documented By: TLM Sodium Chloride (Nss) 500 mls @ 999 mls/hr IV .Q31M EMILE Stop: 05/04/25 11:30 Last Infusion: 05/04/25 14:13 Dose: Infused Documented By: Admin: 05/04/25 12:43 Dose: 999 mls/hr Documented By: akv Vancomycin HCl 1,750 mg/ (Sodium Chloride) 535 mls @ 200 mls/hr IV NOW STA Stop: 05/04/25 13:44 Last Infusion: 05/04/25 16:06 Dose: Infused Documented By: mbu Admin: 05/04/25 12:44 Dose: 200 mls/hr Documented By: akfrank Sodium Chloride (Nss) 500 mls @ 60 mls/hr IV .Q8H20M EMILE Stop: 05/04/25 21:34 Last Infusion: 05/04/25 22:13 Dose: Infused Documented By: Admin: 05/04/25 14:13 Dose: 60 mls/hr Documented By: THERESA Ioversol (Optiray 320 125ml) 118 ml IV ONCE ONE Stop: 05/04/25 14:58 Last Admin: 05/04/25 14:57 Dose: 118 ml Documented By: KSF Imaging Data Radiologist's Impression: Chest X-Ray 05/04/25 10:53 XR chest 1V portable CLINICAL HISTORY: Sepsis COMPARISON STUDY: 05/02/2025 FINDINGS: Stable cardiac valve repair and pacemaker. Stable cardiomegaly with mild pulmonary vascular congestion. Inspiration is shallow. There is interval mild stranding opacity at the right lung base. No other consolidation or pleural effusion. No pneumothorax. IMPRESSION: 1. Mild CHF. 2. Atelectasis versus early pneumonia right lung base. ACT 112: Negative or not required by law. Electronically signed by: Andres Hutchinson M.D. 05/04/2025 11:43 AM Hip/Pelvis X-Ray 05/04/25 11:01 XR hip RT 2V w pelvis CLINICAL HISTORY: Right hip pain, sepsis. COMPARISON: Pelvis radiograph January 04, 2023. CT of the abdomen and pelvis April 26, 2025. FINDINGS: The sacroiliac joints and symphysis pubis are intact. There are no fractures within the pelvis or hips. No suspicious osseous lesions are identified. There is mild to moderate osteoarthritis of both hips. IMPRESSION: 1. No fractures within the pelvis or hips. 2. Mild to moderate bilateral hip osteoarthritis. ACT 112: Negative or not required by law. Electronically signed by: Silver Carroll M.D. 05/04/2025 11:44 AM Discharge Plan Visit Data Chief Complaint: Abnormal Labs/Diagnostic Testing Stated Complaint: BLOOD CULTURES, REF BY DOC ED Provider: Galen Bales Discharge Problem: Bacteremia due to Enterococcus, Acute UTI, Acute pain of right hip Patient Disposition: Admitted As Inpatient Condition: Fair Discharge Instructions Interventions: ED Discharge Assessment Last Done: 05/04/25 13:34
[2025-05-04 11:42] LABS: Base Excess VBG -3.5 mEq/L; HCO3 VBG 21 mmol/L; Oxygen Saturation VBG < 60.0 %; PCO2 VBG 37 mmHg (38-50); PO2 VBG 36 mmHg; pH VBG 7.37 (7.36-7.41)
--- NOTE | 2025-05-04 11:44 | XRay Report ---
XR chest 1V portable CLINICAL HISTORY: Sepsis COMPARISON STUDY: 05/02/2025 FINDINGS: Stable cardiac valve repair and pacemaker. Stable cardiomegaly with mild pulmonary vascular congestion. Inspiration is shallow. There is interval mild stranding opacity at the right lung base. No other consolidation or pleural effusion. No pneumothorax. IMPRESSION: 1. Mild CHF. 2. Atelectasis versus early pneumonia right lung base. ACT 112: Negative or not required by law. Electronically signed by: Andres Hutchinson M.D. 05/04/2025 11:43 AM
--- NOTE | 2025-05-04 11:46 | XRay Report ---
XR hip RT 2V w pelvis CLINICAL HISTORY: Right hip pain, sepsis. COMPARISON: Pelvis radiograph January 04, 2023. CT of the abdomen and pelvis April 26, 2025. FINDINGS: The sacroiliac joints and symphysis pubis are intact. There are no fractures within the pe lvis or hips. No suspicious osseous lesions are identified. There is mild to moderate osteoarthritis of both hips. IMPRESSION: 1. No fractures within the pelvis or hips. 2. Mild to moderate bilateral hip osteoarthritis. ACT 112: Negative or not required by law. Electronically signed by: Silver Carroll M.D. 05/04/2025 11:44 AM
[2025-05-04 11:47] LABS: Hematocrit (blood only) 28.3 % (42.0-52.0); Hemoglobin 9.5 g/dl (14.0-18.0); Immature Granulocytes # (auto) 0.04 K/uL (0.01-0.20); Immature Granulocytes % (auto) 0.8 %; Mean Corpuscular Hemoglobin 33.8 pg (25.0-34.0); Mean Corpuscular Volume 100.7 fL (80.0-100.0); Platelet Count 153 K/uL (130-400); RDW Standard Deviation 57.2 fL (36.4-46.3); Red Blood Count 2.81 M/uL (4.70-6.10); White Blood Count 4.98 K/ul (4.8-10.8)
[2025-05-04 12:02] LABS: Alanine Aminotransferase 46 U/L (7-52); Albumin Level 3.9 gm/dl (3.4-5.0); Alkaline Phosphatase 65 U/L (34-104); Anion Gap 7 (3-11); Bilirubin,Total 0.7 mg/dl (0.2-1.0); Blood Urea Nitrogen 17 mg/dl (6-23); Calcium 8.9 mg/dl (8.6-10.3); Carbon Dioxide 22 mmol/L (21-32); Chloride 102 mmol/L (98-107); Glucose 130 mg/dl (70-99(Fasting)); Magnesium 2.0 mg/dl (1.7-2.4); Potassium 4.2 mmol/L (3.5-5.1); Sodium 131 mmol/L (136-145); Total Protein 7.3 gm/dl (6.0-8.3)
[2025-05-04] MEDS: SODIUM CHLORIDE 0.9% 500 ML IV SCH ×2 (12:43→14:13)
[2025-05-04] MEDS: VANCOMYCIN HCL 1,750 MG in SODIUM CHLORIDE 0.9% 500 ML IV STA (12:44)
--- NOTE | 2025-05-04 12:55 | History & Physical Report ---
Date of Service May 04, 2025 Assessment & Plan (1) Bacteremia due to Enterococcus: Plan: Ella Mccracken is a 79 yo male with PMH of brain aneurysm and SAD, CAD with bypass surgery; AVR, mitral valve, incomplete bladder emptying, psoiartic arthritis, pacemaker, he was admitted from 04/26-04/27 with fall and syncope episode. normally, he can walk several miles per days on 05/04/2025, he's presented to our hospital with bacteremia, right hip pain, dizziness, he's was in our ED a day prior with UTI and dc with ciprofloxacin echo was ordered to r/o vegetation, given his hx of psoaritis arthritis, right hip MRI and pelvis MRI was order to r/o fluid collection 1. bacteremia from E. facelis 2. syncope event 3. right hip pain 4. hx of AvR and mitral valve annuloplasty, CAD with bypass 5. hx of carotid stent on plavix 6. 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 psoriatic arthritis 8. A-fib on eliquis 9. sick sinus with pacemaker 10. GERD 11. hx of statin myopathy 1. bacteremia, from E facelis vancomycin, ID evaluation, echo to r/o vegetation last colonoscopy was more than 10 years ago 2. syncope event. CTA to brain aneurysm EEG, check ammonia level noted he has subarachnoid hemorrhage 10-15 years from brain aneurysm 3. acute right hip pain, denied hx of trauma, or hip repair f/u on hip MRI and pelvis MRI 4. b/l carotid stenosis, carotid stent on plavix patient has Right TCAR procedure on December 2024 5. psoriatic arthritis, he's on Taltz auto-injector 6. A-fib, eliquis 5mg BID, metoprolol XL 100mg 7. hypertension, amlodipine 10mg daily 8. asthma, he's on fluticasone-salmeterol 100 mcg-50mg q12 hours 9, CAD with bypass surgery 10-15 years ago, pravastatin 10mg he's on aspirin and plavix 10. b12 deficiency, b12 1000mcg (2) UTI (urinary tract infection): (3) Right hip pain: History of Present Illness Chief Complaint: bacteremia right hip pain hx of cardiac valve repair falling and syncope episode normally walk several miles per day Primary Care Provider: Kaci Preston MD Ella Muñoz is a 79 yo male with PMH Of sacroiliitis, A-fib on eliquis, subarachnoid hemorrhage 10-15 years ago at [facility], hx of AVR, mitral valve annuloplasty, CAD s/p bypass surgery 13-14 years ago at [facility],psoriatic arthritis, kidney stones, asthma, BPH, outflow obstruction, coloni polyps he was in the hospital from for bleeding from scalp laceration site, passing out episode, and noted to has blood loss anemia on elquis, he's has pacemaker interrogated on that admission. yesterdady, he's was having dysuria, and came to our ED, and prescribed ciprofloxin, however, he was found to has bacteremia from enterooccus and return to ED for evaluation he was started on vancomycin on interview, he was also having right posterior hip pain, stated pain became significant when he put weight on it, he also been having dizziness episode for his Enteroccus faecalis bacteremia, he stated his colonoscopy was more than 10 years ago. for his syncope, no chest pain, no palpitation, no shortness of breath. no headache he's will need admission to medicine services for IV antibiotics, echo was ordered to r/o vegetation, ID was consulted his stated he is DNR, DNI Allergies Allergy/AdvReac Type Severity Reaction Status Date / Time Penicillins Allergy Intermediate RASH Verified 04/20/25 13:29 atorvastatin AdvReac Intermediate Muscle Pain Verified 04/20/25 13:29 rosuvastatin [From Crestor] AdvReac Intermediate Muscle Pain Verified 04/20/25 13:29 Home Medications Medication Instructions Recorded Confirmed Type cyanocobalamin (vitamin B-12) 1,000 mcg PO QAM 11/08/20 05/04/25 History 1,000 mcg tablet (Vitamin B-12) pravastatin 10 mg tablet 10 mg PO DAILY #90 tabs 06/19/24 05/04/25 Rx clopidogrel 75 mg tablet 75 mg PO QAM 12/16/24 05/04/25 History metoprolol succinate 100 mg 100 mg PO BID #180 tabs 01/27/25 05/04/25 Rx tablet,extended release 24 hr Taltz Autoinjector 80 mg/mL 80 mg subcut Q28D #1 mL 02/18/25 05/04/25 Rx subcutaneous (ixekizumab) apixaban 5 mg tablet (Eliquis) 5 mg PO BID #180 tabs 02/23/25 05/04/25 Rx albuterol sulfate 90 mcg/actuation 2 puff inhalation Q4 PRN Shortness 04/12/25 05/04/25 History aerosol inhaler Of Breath Or Wheezing amlodipine 10 mg tablet 10 mg PO QAM 04/26/25 05/04/25 History fluticasone 250 mcg-salmeterol 50 1 inh inhalation BID #60 ea 04/29/25 05/04/25 Rx mcg/dose blistr powdr for inhalation (Wixela Inhub) ciprofloxacin HCl 500 mg tablet 500 mg PO Q12H #20 tabs 05/02/25 05/04/25 Rx Past Med/Surg History Problem List (Updated 05/04/25 @ 12:45 by Gris Marmolejo DO) Right hip pain UTI (urinary tract infection) Bacteremia due to Enterococcus Nausea (Acute) Dehydration (Acute) Acute UTI (Acute) Hyperlipidemia statin intolerance Hypertension Balance problems Frequent falls Internal carotid artery stent present Excessive cerumen in both ear canals Sacroiliitis Positive LUIS (antinuclear antibody) Inflammatory polyarthritis Abnormal LFTs History of intracranial hemorrhage 2009 per records Impaired fasting glucose History of aortic valve replacement Allergic rhinitis Bicuspid aortic valve Gastroesophageal reflux disease Incomplete emptying of bladder Vitamin B12 deficiency CAD (coronary artery disease) Cognitive changes History of colon polyps Sensorineural hearing loss (SNHL) of both ears Skin lesion of left ear Statin myopathy (Acute) Medical History (Updated 05/04/25 @ 12:45 by Gris Marmolejo DO) Episode of syncope Chronic anticoagulation Right shoulder pain Laceration of scalp Thoracic aortic aneurysm mild aneurysmal dilatation of the visualized ascending thoracic aorta which measures up to 4.1 cm per 01/04/23 A/P CT scan Carotid stenosis, right 80% stenosis of right ICA Dizzy spells Intermittent x two years per vascular records Psoriatic arthritis Follows with rheum Cardiac pacemaker s/p complete heart block Jul 2011- DDDR pacemaker Mitral valve insufficiency s/p Jordyn-Camarena mitral valve ring, #28, July 2011 Benign prostatic hyperplasia with urinary obstruction and other lower urinary tract symptoms Asthma Nephrolithiasis passed on own Paroxysmal atrial fibrillation Dx 2009> pacer/ Xarelto Brain aneurysm - with repair> [facility] > was in hospital for 12 weeks > 2009 - stable findings following right frontal craniotomy per 10/[address] - CT angiogram 02/03/2013- post surgical changes - no longer needs to follow with neuro per PCP office visit 11/2024 Left hand weakness 2022- PCP recommended PT Rheum ordered EMG testing at 11/2024 appt GERD (gastroesophageal reflux disease) hx> none at present NSVT (nonsustained ventricular tachycardia) Migratory polyarthritis Abnormal liver enzymes stable x years per PCP records; daily alcohol use CHF (congestive heart failure) follows with Dr. Dinero EF 60-65% on 04/2024 ECHO CAD (coronary artery disease), otoe-[place]ou[place] coronary artery - non interveneable RCA, July 2011 - 30 to 40% LAD and OM 3, small nondominant RCA with moderate disease, April 2018 Aortic stenosis severe secondary to bicuspid AV Jordyn-Camarena pericardial AVR #21 (2011) Later TAVR 2018 Surgical History (Updated 04/29/25 @ 00:07 by Nicolasa Buckley) History of cardiac cath 2018 no stents History of colonoscopy Hx of inguinal hernia repair Hx of vasectomy History of cataract surgery bilat History of mitral valve repair 2011 History of tonsillectomy and adenoidectomy History of cerebral aneurysm repair 2009 History of craniotomy 2009 (brain aneurysm) History of heart valve replacement 2012= AVR > Mile Later TAVR in 2018 in [place] Family History Father Pancreatic malignant neoplasm Malignant Pancreatic Neoplasm Colorectal cancer Denies family history of Ovarian cancer Prostate cancer Myocardial infarction Breast cancer Social History Smoking Status: Never smoker Second Hand Exposure: No; Do You Dip or Chew Tobacco: No; Hx Alcohol Use: Yes Alcohol type: wine and hard liquor Hx Substance Use: No Preferred Language: Ivorian Communication Ability: Effective Visual Impairment: No Limitations Hearing Ability: Normal Synthetic Cloth Binding Cutter Required: No Beliefs That Will Affect Care: None marital status: Current Living Situation: Spouse current occupational status: retired 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[employer], 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 [employer] Feels Safe at Home: Yes Childhood Exposure to Second-Hand Smoke: Yes Dental Care, Regularly: Yes Physical Activity Frequency: 5-6 Times per Week Physical Activity Frequency Comment: walking 3-4 miles Seatbelt Use: always Sunscreen Use: No Assistive Devices: None Review of Systems Review of Systems: Constitutional: No Weight Change, No Fever, No Chills, No Night Sweats, No Fatigue, No Malaise Neuro: + for syncope; + for hx of brain aneursym; no loss of consciousness; no gait change Cardiovascular: No Chest Pain, No SOB, No PND, No Dyspnea on Exertion, No Orthopnea, No Claudication, No Edema, No Palpitations + for hx of valve repair, + for hx of CAD with bypass surgery Respiratory: No Cough, No Sputum, No Wheezing, No Smoke Exposure, No Dyspnea Gastrointestinal: No Nausea, No Vomiting, No Diarrhea, No Constipation, No Pain, No Heartburn, No Anorexia, No Dysphagia, No Hematochezia, No Melena, No Flatulence, No Jaundice Genitourinary: + for dysuria;+ for hematuria Musculoskeletal: no neck pain; + for right hip pain Heme/Lymph: No Bruising, No Bleeding, No Transfusions History, No Lympha denopathy Endocrine: No Polyuria, No Polydipsia, No Temperature Intolerance Physical Exam Physical Exam: VITALS: Reviewed. WEIGHT/BMI reviewed. GEN: Healthy appearing, well-developed, NAD. PSYCH: Good Judgment. AOx3. Normal memory, mood, and affect. HEENT MSK: right hip is painful to external rotation; sacrum painful to palpation -Head: NC/AT; -Eyes: PERRL, EOMI. No discharge or redn ess; NECK: Supple, with no masses. CV: + for murmur; RRR LUNGS: CTAB, no w/r/c. ABD: Soft, NT/ND, NBS, no masses or organomegaly. : N/A SKIN: Warm, well perfused. No skin rashes or abnormal lesions. EXT: No clubbing, cyanosis, or edema. NEURO: CN 2-12 grossly intact; AAox3; normal finger to nose Results & Data Results & Data Vital Signs (Past 12 Hours) Vital Signs Temp Pulse Resp BP Pulse Ox O2 Del Method 05/04/25 11:14 93 H 05/04/25 10:53 77 18 95 Room Air 05/04/25 10:45 36.7 C 85 18 173/82 H 97 Room Air Laboratory Results Laboratory Results - last 72 hr 05/04/25 11:23 WBC 4.98 RBC 2.81 L Hgb 9.5 L Hct 28.3 L MCV 100.7 H MCH 33.8 MCHC 33.6 RDW Std Deviation 57.2 H RDW Coeff of Andres 15.5 H Plt Count 153 MPV 11.0 Immature Gran % (Auto) 0.8 Neut % (Auto) 75.1 Lymph % (Auto) 6.4 [place] % (Auto) 17.3 Eos % (Auto) 0.2 Baso % (Auto) 0.2 Neut # (Auto) 3.74 Lymph # (Auto) 0.32 L [place] # (Auto) 0.86 H Eos # (Auto) 0.01 Baso # (Auto) 0.01 Immature Gran # (Auto) 0.04 VBG pH 7.37 VBG pCO2 37 L VBG pO2 36 VBG HCO3 21 VBG O2 Saturation < 60.0 VBG Base Excess -3.5 Sodium 131 L Potassium 4.2 Chloride 102 Carbon Dioxide 22 Anion Gap 7 BUN 17 Creatinine 0.78 Est Cr Clr Drug Dosing Not Reportable eGFR 91.85 BUN/Creatinine Ratio 21.8 H Glucose 130 H Lactate 1.7 Calcium 8.9 Magnesium 2.0 Total Bilirubin 0.7 Direct Bilirubin 0.2 AST 39 ALT 46 Alkaline Phosphatase 65 Troponin I High Sens 17.6 Total Protein 7.3 Albumin 3.9 Procalcitonin 6.14 H Diagnostic Findings Laboratory Results WBC 4.98 K/ul (4.8-10.8) 05/04/25 11:23 RBC 2.81 M/uL (4.70-6.10) L 05/04/25 11:23 Hgb 9.5 g/dl (14.0-18.0) L 05/04/25 11:23 Hct 28.3 % (42.0-52.0) L 05/04/25 11:23 MCV 100.7 fL (80.0-100.0) H 05/04/25 11:23 MCH 33.8 pg (25.0-34.0) 05/04/25 11:23 MCHC 33.6 g/dL (32.0-36.0) 05/04/25 11:23 RDW Std Deviation 57.2 fL (36.4-46.3) H 05/04/25 11:23 RDW Coeff of Andres 15.5 % (11.5-14.5) H 05/04/25 11:23 Plt Count 153 K/uL (130-400) 05/04/25 11:23 MPV 11.0 fL (9.4-12.4) 05/04/25 11:23 Immature Gran % (Auto) 0.8 % 05/04/25 11:23 Neut % (Auto) 75.1 % 05/04/25 11:23 Lymph % (Auto) 6.4 % 05/04/25 11:23 [place] % (Auto) 17.3 % 05/04/25 11:23 Eos % (Auto) 0.2 % 05/04/25 11:23 Baso % (Auto) 0.2 % 05/04/25 11:23 Neut # (Auto) 3.74 K/uL (1.40-6.50) 05/04/25 11:23 Lymph # (Auto) 0.32 K/uL (1.20-3.40) L 05/04/25 11:23 [place] # (Auto) 0.86 K/uL (0.11-0.59) H 05/04/25 11:23 Eos # (Auto) 0.01 K/uL (0.00-0.50) 05/04/25 11:23 Baso # (Auto) 0.01 K/uL (0.00-0.20) 05/04/25 11:23 Immature Gran # (Auto) 0.04 K/uL (0.01-0.20) 05/04/25 11:23 VBG pH 7.37 (7.36-7.41) 05/04/25 11:23 VBG pCO2 37 mmHg (38-50) L 05/04/25 11:23 VBG pO2 36 mmHg 05/04/25 11:23 VBG HCO3 21 mmol/L 05/04/25 11:23 VBG O2 Saturation < 60.0 % 05/04/25 11:23 VBG Base Excess -3.5 mEq/L 05/04/25 11:23 Sodium 131 mmol/L (136-145) L 05/04/25 11:23 Potassium 4.2 mmol/L (3.5-5.1) 05/04/25 11:23 Chloride 102 mmol/L (98-107) 05/04/25 11:23 Carbon Dioxide 22 mmol/L (21-32) 05/04/25 11:23 Anion Gap 7 (3-11) 05/04/25 11:23 BUN 17 mg/dl (6-23) 05/04/25 11:23 Creatinine 0.78 mg/dl (0.6-1.4) 05/04/25 11:23 Est Cr Clr Drug Dosing Not Reportable 05/04/25 11:23 eGFR 91.85 05/04/25 11:23 BUN/Creatinine Ratio 21.8 (10-20) H 05/04/25 11:23 Glucose 130 mg/dl (70-99(Fasting)) H 05/04/25 11:23 Lactate 1.7 mmol/L (0.4-2.0) 05/04/25 11:23 Calcium 8.9 mg/dl (8.6-10.3) 05/04/25 11:23 Magnesium 2.0 mg/dl (1.7-2.4) 05/04/25 11:23 Total Bilirubin 0.7 mg/dl (0.2-1.0) 05/04/25 11:23 Direct Bilirubin 0.2 mg/dl (0-0.2) 05/04/25 11:23 AST 39 U/L (13-39) 05/04/25 11:23 ALT 46 U/L (7-52) 05/04/25 11:23 Alkaline Phosphatase 65 U/L (34-104) 05/04/25 11:23 Troponin I High Sens 17.6 pg/ml (0-20) 05/04/25 11:23 Total Protein 7.3 gm/dl (6.0-8.3) 05/04/25 11:23 Albumin 3.9 gm/dl (3.4-5.0) 05/04/25 11:23 Procalcitonin 6.14 ng/ml (0-0.5) H 05/04/25 11:23 Impressions Chest X-Ray 05/04/25 10:53 XR chest 1V portable CLINICAL HISTORY: Sepsis COMPARISON STUDY: 05/02/2025 FINDINGS: Stable cardiac valve repair and pacemaker. Stable cardiomegaly with mild pulmonary vascular congestion. Inspiration is shallow. There is interval mild stranding opacity at the right lung base. No other consolidation or pleural effusion. No pneumothorax. IMPRESSION: 1. Mild CHF. 2. Atelectasis versus early pneumonia right lung base. ACT 112: Negative or not required by law. Electronically signed by: Andres Hutchinson M.D. 05/04/2025 11:43 AM Hip/Pelvis X-Ray 05/04/25 11:01 XR hip RT 2V w pelvis CLINICAL HISTORY: Right hip pain, sepsis. COMPARISON: Pelvis radiograph January 04, 2023. CT of the abdomen and pelvis April 26, 2025. FINDINGS: The sacroiliac joints and symphysis pubis are intact. There are no fractures within the pelvis or hips. No suspicious osseous lesions are identified. There is mild to moderate osteoarthritis of both hips. IMPRESSION: 1. No fractures within the pelvis or hips. 2. Mild to moderate bilateral hip osteoarthritis. ACT 112: Negative or not required by law. Electronically signed by: Silver Carroll M.D. 05/04/2025 11:44 AM PG Care Time/CCT Total # of Minutes Spent Total Time Spent with Patient: Total time spent is greater than 50% in coordination of care (as documented) at patient's floor/unit and/or counseling patient: Coding Level of Care Code 48064 INT INP/OBS CARE 2/55MIN Diagnoses Bacteremia due to Enterococcus R78.81; B95.2 UTI (urinary tract infection) N39.0 Right hip pain M25.551 Time Spent (min) 50
[2025-05-04 13:08] LABS: Appearance Urine Clear (Clear); Bacteria Urine Automated None Seen (None Seen); Cast Urine Automated 0-2 /lpf (0-2); Epithelial Cell Urine Auto 0-2 /hpf (0-2); Glucose Urine UA Negative (Negative); RBC Urine Automated 0-2 /hpf (0-2); WBC Urine Automated 0-5 /hpf (0-5)
[2025-05-04] MEDS ORDERED: ALBUTEROL HFA 8 GM INHALER INH PRN (13:33)
[2025-05-04] MEDS: OPTIRAY 320 125ml IV ONE (14:57)
--- NOTE | 2025-05-04 15:12 | XCELERA ---
[id number]
--- NOTE | 2025-05-04 15:17 | CT Scan Report ---
CT hip RT wo/w con CLINICAL HISTORY: Right hip pain. COMPARISON STUDY: Right hip radiographs performed earlier today. CT of the abdomen and pelvis Octobe r 2024. TECHNIQUE: Axial images of the right hip were obtained before and after intravenous administration of 118 cc Optiray 320 IV. Coronal and sagittal reformats were viewed. A dose lowering technique was uti lized adhering to the principles of ALARA. FINDINGS: Incidental note is made of moderate enlargement of the prostate. The prostate measures 5.7 cm in transverse diameter. The bladder is distended. These findings are better depicted on the abdome n and pelvis CT which will be reported separately. Alignment of the right hip is anatomic. There is n o fracture. No osseous lesions are present. There is moderate posterior hip joint space narrowing. Th ere is associated osteophytosis. There is no evidence for avascular necrosis of the right femoral hea d. No fluid collection is identified. Minimal subcutaneous stranding of the lateral right thigh is un changed. There is no right inguinal lymphadenopathy. IMPRESSION: 1. No fractures within the right hip. 2. Moderate right hip osteoarthritis. ACT 112: Negative or not required by law. Electronically signed by: Silver Carroll M.D. 05/04/2025 3:15 PM
--- NOTE | 2025-05-04 15:22 | Electrocardiogram Report ---
Test Reason : Blood Pressure : */* mmHG Vent. Rate : 84 BPM Atrial Rate : 84 BPM P-R Int : 152 ms QRS Dur : 78 ms QT Int : 352 ms P-R-T Axes : 49 31 88 degrees QTcB Int : 415 ms Normal sinus rhythm When compared with ECG of 27-Apr-2025 06:38, No significant change was found Confirmed by Jerzy Kahn ([id number]) on 05/04/2025 3:21:42 PM Referred By: Galen Bales Confirmed By: Jerzy Kahn
--- NOTE | 2025-05-04 15:25 | CT Scan Report ---
CT angio head w con CLINICAL HISTORY: 79 years-old Male with syncope, hx of brain aneursym. Acute syncope COMPARISON STUDY: Head CT 05/02/2025, CTA head from outside facility 04/26/2011. TECHNIQUE: Following the IV administration of 118 cc of Optiray, CT angiogram of the brain was perfor med from the skull base to the vertex. Images are reviewed in the axial, sagittal, and coronal planes . 3-D MIPS images are created and assessed. IV contrast was administered without complication. All me asurements were obtained according to NASCET criteria. A dose lowering technique was utilized adherin g to the principles of ALARA. CT DOSE: 3527.09 mGy.cm FINDINGS: Involutional changes with probable chronic microvascular ischemic disease.Postoperative eliot nges of prior right frontal craniotomy. Coastal thickening of the paranasal sinuses. Prior bilateral lens repair. 3.2 x 2.4 cm left parietal scalp hematoma has increased in size from prior. Calcificatio ns of the central vandana are again seen. CT ANGIOGRAM OF THE BRAIN: The imaged bilateral internal carotid arteries are patent. Partially imaged arterial stent within the distal cervical segment right ICA. The bilateral anterior and middle cerebral arteries are also tafoya nt. There is a 4 cm segment of the T1 segment right posterior cerebral artery demonstrating high-grad e stenosis, image 114 series 7 which has worsened from prior. The left posterior cerebral artery is w idely patent. Aneurysmal clipping noted involving the anterior communicating artery. Dural sinuses ap pear patent. IMPRESSION: 1. Increased size of the left parietal scalp hematoma. 2. High-grade stenosis of the right posterior cerebral artery. 3. 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 ACT 112: Negative or not required by law. The above report was generated using voice recognition software. It may contain grammatical, syntax o r spelling errors. Electronically signed by: Kartik Simons M.D. 05/04/2025 3:24 PM
--- NOTE | 2025-05-04 15:40 | CT Scan Report ---
CT abdomen pelvis wo/w con HISTORY: 79 years-old Male right hip pain, posterior lateral acute pain of the pelvis and right hip without reported trauma COMPARISON: Right hip CT of same day, CT abdomen and pelvis 04/26/2025 TECHNIQUE: Multiple axial CT images of the pelvis were obtained with and without IV contrast. A dose lowering technique was used consistent with the principals of LIGIA. FINDINGS: Cardiomegaly with prosthetic aortic valve. Sternotomy wires are present. Fusiform dilation of the asc ending thoracic aorta, 4 cm. Small pleural effusions with mild dependent bibasilar atelectasis. No pn eumatosis or pneumoperitoneum. Hepatic steatosis. Patency of the hepatic and portal veins. Unremarkab le spleen, gallbladder and adrenal glands. 8 mm cystic focus of the pancreas image 1:15 series 9, pos sibly a sidebranch IPMN. No hydronephrosis. Small cyst of the posterior aspect inferior pole right kidney. No renal or uretera l calculi or hydronephrosis. No enhancing renal mass lesions. Prostatomegaly with heterogeneous enhan cement. Urinary bladder wall thickening suggestive of chronic outlet obstruction. Atherosclerosis of the aorta without aneurysm. Borderline-enlarged periportal lymph nodes measure up to 11 mm, favored t o be benign. Mild distal esophageal wall thickening with subcentimeter lymph nodes and trace adjacent inflammatory stranding. Colonic diverticulosis without acute diverticulitis. Mild to moderate coloni c fecal retention. No acute fracture. IMPRESSION: 1. Stable exam compared to the study from 04/26/2025. 2. No acute intra-abdominal or intrapelvic abnormality. 3. Enlarged heterogeneously enhancing prostate. Correlate with PSA. 4. Hepatic steatosis. 5. Small pleural effusions. 6. Additional findings as above. ACT 112: Negative or not required by law. The above report was generated using voice recognition software. It may contain grammatical, syntax o r spelling errors. Electronically signed by: Kartik Simons M.D. 05/04/2025 3:39 PM
[2025-05-04] MEDS ORDERED: DAPTOmycin 750 MG in SYRINGE 0 ML IV SCH (15:45)
--- NOTE | 2025-05-04 16:04 | Infectious Disease Consult ---
Date of Consultation May 04, 2025 Assessment & Plan (1) Bacteremia due to Enterococcus: (2) UTI (urinary tract infection): (3) History of aortic valve replacement: Plan ID Problem List: # E. faecalis bacteremia # UCx + E. faecalis, possible UTI # History of bioprosthetic AV replacement # History of mitral valve annuloplasty # History of sick sinus syndrome s/p pacemaker # History of psoriatic arthritis on Taltz (ixekizumab) # Reported antibiotic allergy: penicillins (rash) Impression: Ella Mccracken is a 79-year-old man with history of history of s/p aortic valve replacement 2011, mitral valve annuloplasty, SSS s/p PPM 2011, Afib on Eliquis, CAD s/p CABG, brain aneurysm c/b SDH s/p clipping 2009, psoriatic arthritis on Taltz (ixekizumab), recent admission 04/26-04/27/25 with syncope, ED visit on 05/02/25, who presents to [facility] on 05/04/25 d/t BCx from 05/02 showing E. faecalis bacteremia. ID is consulted for E. faecalis bacteremia. The patient was recently admitted from 04/26-04/27 with fall and syncope episode with head injury. He was found to have a small scalp hematoma. His syncope was felt to be vasovagal. He had his PPM interrogated without issue. The patient was seen in the ED on 05/02/25 for increasing weakness since his hospitalization and had some dysuria. At the time, he was afebrile, WBC 9.48 Hgb 9.5 plt 215 Cr 0.81 LFTs wnl. UA with 21-50 WBCs, 3-5 RBcs, 2+ bacteria, neg nitrite, 1+ LE. He was diagnosed with UTI and discharged to complete a course of ciprofloxacin. His BCx from 05/02 are growing E. faecalis. He is also reporting R hip pain and dizziness. He still has a small amount of dysuria. 05/04 TTE without reported mass/vegetation; abnormal gradient for bioprosthetic AV, severe , moderate mitral annular calcification, severe MS, elevated RVSP, borderline aortic root dilatation. 05/[address] without fracture, showing moderate R hip OA. 05/04 head CTA showing increased size of the L parietal hematoma from prior; high-grade stenosis of the R ADVERTISER, aneurysmal clips of the HERNESTO. Discussion Pt presenting with E. faecalis bacteremia, in the setting of recent syncope (no BCx obtained that admission), and also reporting dysuria, dizziness, and R hip pain. The source of the E. faecalis is unclear; UA with pyuria and pt with dysuria, and UCx with E. faecalis as well; CT A/P without e/o ascending UTI but does show enlarged enhancing prostate. Pt with history of AVR and PPM in place, thus is at high risk for complicated bacteremia. 05/04 TTE without reported mass/vegetation; abnormal gradient for bioprosthetic AV, severe , moderate mitral annular calcification, severe MS, elevated RVSP, borderline aortic root dilatation. Given abnormal TTE and history of AVR, will recommend to obtain ORRO for further evaluation. Recommend repeating BCx q48h until clear. Would continue to monitor closely for any new/worsening focal complaints (e.g., joint pain, back pain) with low threshold to image/evaluate as possible metastatic infection. Pt with history of penicillins (rash). Will try and clarify pts penicillin allergy further to see if we are able to use ampicillin for the E. faecalis. For now, will recommend to start daptomycin. Recommendations: - Start daptomycin 750 mg IV q24h (10 mg/kg) for E. faecalis bacteremia. Will try and clarify pts penicillin allergy further to see if we are able to use ampicillin for the E. faecalis - Recommend RORO for further evaluation given bioprosthetic AVR and PPM, with abnormal TTE - Repeat BCx ordered for 05/04. Recommend repeat BCx q48h to evaluate for clearance - Continue to monitor closely for any new/worsening focal complaints (e.g., joint pain, back pain) with low threshold to image/evaluate as possible metastatic infection - If ongoing pelvic/hip pain, would consider MRI ID will continue to follow. Angela Arias MD, MHS Infectious Diseases [facility] ID Connect direct line: [phone] Consultation Information This patient recommendation is based on a telemedicine consult request which was completed asynchronously through chart review and information provided by the primary physician. The patient was not seen or examined today. The evaluation is consultative in nature and all patient care and treatment decisions can either be accepted or rejected by the patient's primary hospital-based treating physician using their own independent medical judgment for their patient. [employer]er contact information: Please call [facility] Connect Call Center [phone]. (Phone Number For Physician Use Only) Time Spent Reviewing Chart: 31+ minutes History of Present Illness Attending Physician: Gris Marmolejo DO History of Present Illness Ella Mccracken is a 79-year-old man with history of history of s/p aortic valve replacement 2011, mitral valve annuloplasty, SSS s/p PPM 2011, Afib on Eliquis, CAD s/p CABG, brain aneurysm c/b SDH s/p clipping 2009, psoriatic arthritis on Taltz (ixekizumab), recent admission 04/26-04/27/25 with syncope, ED visit on 05/02/25, who presents to [facility] on 05/04/25 d/t BCx from 05/02 showing E. faecalis bacteremia. ID is consulted for E. faecalis bacteremia. The patient was recently admitted from 04/26-04/27 with fall and syncope episode with head injury. He was found to have a small scalp hematoma. His syncope was felt to be vasovagal. He had his PPM interrogated without issue. The patient was seen in the ED on 05/02/25 for increasing weakness since his hospitalization and had some dysuria. At the time, he was afebrile, WBC 9.48 Hgb 9.5 plt 215 Cr 0.81 LFTs wnl. UA with 21-50 WBCs, 3-5 RBcs, 2+ bacteria, neg nitrite, 1+ LE. He was diagnosed with UTI and discharged to complete a course of ciprofloxacin. His BCx from 05/02 are growing E. faecalis. He is also reporting R hip pain and dizziness. He still has a small amount of dysuria. 05/04 TTE without reported mass/vegetation; abnormal gradient for bioprosthetic AV, severe , moderate mitral annular calcification, severe MS, elevated RVSP, borderline aortic root dilatation. 05/[address] without fracture, showing moderate R hip OA. 05/04 head CTA showing increased size of the L parietal hematoma from prior; high-grade stenosis of the R ADVERTISER, aneurysmal clips of the HERNESTO. Allergies Allergy/AdvReac Type Severity Reaction Status Date / Time Penicillins Allergy Intermediate RASH Verified 04/20/25 13:29 atorvastatin AdvReac Intermediate Muscle Pain Verified 04/20/25 13:29 rosuvastatin [From Crestor] AdvReac Intermediate Muscle Pain Verified 04/20/25 13:29 Home Medications Medication Instructions Recorded Confirmed Type cyanocobalamin (vitamin B-12) 1,000 mcg PO QAM 11/08/20 05/04/25 History 1,000 mcg tablet (Vitamin B-12) pravastatin 10 mg tablet 10 mg PO DAILY #90 tabs 06/19/24 05/04/25 Rx clopidogrel 75 mg tablet 75 mg PO QAM 12/16/24 05/04/25 History metoprolol succinate 100 mg 100 mg PO BID #180 tabs 01/27/25 05/04/25 Rx tablet,extended release 24 hr Taltz Autoinjector 80 mg/mL 80 mg subcut Q28D #1 mL 02/18/25 05/04/25 Rx subcutaneous (ixekizumab) apixaban 5 mg tablet (Eliquis) 5 mg PO BID #180 tabs 02/23/25 05/04/25 Rx albuterol sulfate 90 mcg/actuation 2 puff inhalation Q4 PRN Shortness 04/12/25 05/04/25 History aerosol inhaler Of Breath Or Wheezing amlodipine 10 mg tablet 10 mg PO QAM 04/26/25 05/04/25 History fluticasone 250 mcg-salmeterol 50 1 inh inhalation BID #60 ea 04/29/25 05/04/25 Rx mcg/dose blistr powdr for inhalation (Wixela Inhub) ciprofloxacin HCl 500 mg tablet 500 mg PO Q12H #20 tabs 05/02/25 05/04/25 Rx Patient History Medical History (Updated 05/04/25 @ 12:45 by Gris Marmolejo DO) Episode of syncope Chronic anticoagulation Right shoulder pain Laceration of scalp Thoracic aortic aneurysm mild aneurysmal dilatation of the visualized ascending thoracic aorta which measures up to 4.1 cm per 01/04/23 A/P CT scan Carotid stenosis, right 80% stenosis of right ICA Dizzy spells Intermittent x two years per vascular records Psoriatic arthritis Follows with rheum Cardiac pacemaker s/p complete heart block Jul 2011- DDDR pacemaker Mitral valve insufficiency s/p Jordyn-Camarena mitral valve ring, #28, July 2011 Benign prostatic hyperplasia with urinary obstruction and other lower urinary tract symptoms Asthma Nephrolithiasis passed on own Paroxysmal atrial fibrillation Dx 2009> pacer/ Xarelto Brain aneurysm - with repair> [facility] > was in hospital for 12 weeks > 2009 - stable findings following right frontal craniotomy per 10/[address] - CT angiogram 02/03/2013- post surgical changes - no longer needs to follow with neuro per PCP office visit 11/2024 Left hand weakness 2022- PCP recommended PT Rheum ordered EMG testing at 11/2024 appt GERD (gastroesophageal reflux disease) hx> none at present NSVT (nonsustained ventricular tachycardia) Migratory polyarthritis Abnormal liver enzymes stable x years per PCP records; daily alcohol use CHF (congestive heart failure) follows with Dr. Dinero EF 60-65% on 04/2024 ECHO CAD (coronary artery disease), [place] coronary artery - non interveneable RCA, July 2011 - 30 to 40% LAD and OM 3, small nondominant RCA with moderate disease, April 2018 Aortic stenosis severe secondary to bicuspid AV Jordyn-Camarena pericardial AVR #21 (2012) Later TAVR 2018 Surgical History (Updated 04/29/25 @ 00:07 by Nicolasa Buckley) History of cardiac cath 2017 no stents History of colonoscopy Hx of inguinal hernia repair Hx of vasectomy History of cataract surgery bilat History of mitral valve repair 2011 History of tonsillectomy and adenoidectomy History of cerebral aneurysm repair 2009 History of craniotomy 2009 (brain aneurysm) History of heart valve replacement 2012= AVR > [place] Later TAVR in 2018 in [place] Family History Father Pancreatic malignant neoplasm Malignant Pancreatic Neoplasm Colorectal cancer Denies family history of Ovarian cancer Prostate cancer Myocardial infarction Breast cancer Social History Smoking Status: Never smoker Second Hand Exposure: No; Do You Dip or Chew Tobacco: No; Hx Alcohol Use: Yes Alcohol type: wine and hard liquor Hx Substance Use: No Preferred Language: Chadian Communication Ability: Effective Visual Impairment: No Limitations Hearing Ability: Normal Inbound Sales Representative Required: No Beliefs That Will Affect Care: None marital status: Current Living Situation: Spouse current occupational status: retired 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, 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 [employer] Feels Safe at Home: Yes Childhood Exposure to Second-Hand Smoke: Yes Dental Care, Regularly: Yes Physical Activity Frequency: 5-6 Times per Week Physical Activity Frequency Comment: walking 3-4 miles Seatbelt Use: always Sunscreen Use: No Assistive Devices: None Results & Data Vital Signs (Past 12 Hours) Vital Signs Temp Pulse Pulse Resp BP BP Pulse Ox 05/04/25 15:00 83 18 143/81 H 93 05/04/25 13:00 81 21 160/85 H 97 05/04/25 13:00 81 21 160/85 H 97 05/04/25 11:14 93 H 05/04/25 11:02 86 19 174/82 H 100 05/04/25 11:02 86 19 174/82 H 99 05/04/25 10:53 77 18 95 05/04/25 10:45 36.7 C 85 18 173/82 H 97 O2 Del Method 05/04/25 15:00 Room Air 05/04/25 13:00 Room Air 05/04/25 13:00 Room Air 05/04/25 11:14 05/04/25 11:02 Room Air 05/04/25 11:02 Room Air 05/04/25 10:53 Room Air 05/04/25 10:45 Room Air Laboratory Results Diagnostics: 05/04 head CTA 1. Increased size of the left parietal scalp hematoma. 2. High-grade stenosis of the right posterior cerebral artery. 3. 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 05/[address] 1. No fractures within the right hip. 2. Moderate right hip osteoarthritis. 05/04 TTE without reported mass/vegetation; abnormal gradient for bioprosthetic AV, severe , moderate mitral annular calcification, severe MS, elevated RVSP, borderline aortic root dilatation 05/04 CT A/P w/ contrast 1. Stable exam compared to the study from 04/26/2025. 2. No acute intra-abdominal or intrapelvic abnormality. 3. Enlarged heterogeneously enhancing prostate. Correlate with PSA. 4. Hepatic steatosis. 5. Small pleural effusions. 6. Additional findings as above. 05/04 CT A/P with contrast without acute intraabdominal abnormality; enlarged enhancing prostate. Micro Data: 05/04 BCx x2: PEND 05/02 BCx x2: E. faecalis in 1/2 sets (1/4 bottles) 05/02 UCx: E. faecalis Antibiotic Summary: daptomycin (05/04 present) prior vancomycin (05/04)
[2025-05-04] MEDS: DAPTOmycin 700 MG in SYRINGE 0 ML IV SCH (16:36)
[2025-05-04] MEDS ORDERED: FLUTICASONE/SALMETEROL 250/50 (ADVAIR) 14 PUFF/1 INHALER INH SCH (21:00)
[2025-05-04] MEDS: METOPROLOL SUCC 50MG EXT REL TAB PO SCH (22:36)
[2025-05-05 04:39] LABS: A calco-baum cmplx NotReported Not Detected (NotDetected); Bact fragilis Not Reported Not Detected (NotDetected); Blood Culture Id Panel See PCR Comment (NotDetected); C auris Not Reported Not Detected (NotDetected); Calbicans Not Reported Not Detected (NotDetected); Candida glabrata Not Reported Not Detected (NotDetected); Candida krusei Not Reported Not Detected (NotDetected); Cneoformans/gatti Not Reported Not Detected (NotDetected); Cparapsilosis Not Reported Not Detected (NotDetected); Ctropicalis Not Reported Not Detected (NotDetected); E cloacae compx Not Reported Not Detected (NotDetected); Efaecalis Not Reported DETECTED (NotDetected); Efaecium Not Reported Not Detected (NotDetected); Enterobacterales Not Reported Not Detected (NotDetected); Escherichia coli Not Reported Not Detected (NotDetected); H influenzae Not Reported Not Detected (NotDetected); K aerogenes Not Reported Not Detected (NotDetected); Koxytoca Not Reported Not Detected (NotDetected); Kpneumoniae grp Not Reported Not Detected (NotDetected); Lmonocyt Not Reported Not Detected (NotDetected); N meningitidis Not Reported Not Detected (NotDetected); P aeruginosa Not Reported Not Detected (NotDetected); Proteus spp Not Reported Not Detected (NotDetected); Salmonella spp Not Reported Not Detected (NotDetected); Staph lugdunensis Not Reported Not Detected (NotDetected); Staph spp. Not Reported Not Detected (NotDetected); Staphaureus Not Reported Not Detected (NotDetected); Staphepi Not Reported Not Detected (NotDetected); Stenmaltophilia Not Reported Not Detected (NotDetected); Strep agal(GrpB) Not Reported Not Detected (NotDetected); Strep pneum Not Reported Not Detected (NotDetected); Strep pyog (GrpA) Not Reported Not Detected (NotDetected); Strep spp Not Reported Not Detected (NotDetected); VanAB Resistant Gene VRE Not Detected (NotDetected)
[2025-05-05 04:43] LABS: Enterococcus faecalis DETECTED (NotDetected)
--- NOTE | 2025-05-05 08:02 | Anesthesiology Consultation ---
Date of Service May 05, 2025 Assessment & Plan Chart Review Chart Review: Acceptable Risk for Surgery and Patient NOT seen in Pre Admission Testing Consults Requested none ASA ASA4 Proposed Anesthesia Anesthesia Type: MAC History Height/Weight Height: 5 ft 8 in Weight: 73.981 kg Allergies Allergy/AdvReac Type Severity Reaction Status Date / Time Penicillins Allergy Intermediate RASH Verified 04/20/25 13:29 atorvastatin AdvReac Intermediate Muscle Pain Verified 04/20/25 13:29 rosuvastatin [From Crestor] AdvReac Intermediate Muscle Pain Verified 04/20/25 13:29 Medications Home Medications Medication Instructions Recorded Confirmed Last Taken cyanocobalamin (vitamin B-12) 1,000 mcg PO QAM 11/08/20 05/04/25 04/12/25 1,000 mcg tablet (Vitamin B-12) pravastatin 10 mg tablet 10 mg PO DAILY #90 tabs 06/19/24 05/04/25 12/15/24 09:00 clopidogrel 75 mg tablet 75 mg PO QAM 12/16/24 05/04/25 04/12/25 metoprolol succinate 100 mg 100 mg PO BID #180 tabs 01/27/25 05/04/25 04/12/25 tablet,extended release 24 hr Taltz Autoinjector 80 mg/mL 80 mg subcut Q28D #1 mL 02/18/25 05/04/25 Unknown subcutaneous (ixekizumab) apixaban 5 mg tablet (Eliquis) 5 mg PO BID #180 tabs 02/23/25 05/04/25 04/12/25 albuterol sulfate 90 mcg/actuation 2 puff inhalation Q4 PRN Shortness 04/12/25 05/04/25 Unknown aerosol inhaler Of Breath Or Wheezing amlodipine 10 mg tablet 10 mg PO QAM 04/26/25 05/04/25 Unknown fluticasone 250 mcg-salmeterol 50 1 inh inhalation BID #60 ea 04/29/25 05/04/25 Unknown mcg/dose blistr powdr for inhalation (Wixela Inhub) ciprofloxacin HCl 500 mg tablet 500 mg PO Q12H #20 tabs 05/02/25 05/04/25 Unknown Active Medications Generic Name Dose Route Start Last Admin Trade Name Freq PRN Reason Stop Dose Admin Daptomycin 700 mg/ Syringe 14 mls @ 7 mls/min 05/04/25 16:00 05/04/25 16:36 IV 05/18/25 15:59 7 mls/min Q24H EMILE Administration Protocol Metoprolol Succinate 100 mg 05/04/25 21:00 05/04/25 22:36 Metoprolol Succ 50mg Ext Rel Tab PO 06/03/25 20:59 100 mg BID EMILE Administration Past Medical History Medical History (Updated 05/04/25 @ 18:09 by Alejandro Ortega MD) Episode of syncope Chronic anticoagulation Right shoulder pain Laceration of scalp Thoracic aortic aneurysm mild aneurysmal dilatation of the visualized ascending thoracic aorta which measures up to 4.1 cm per 01/04/23 A/P CT scan Carotid stenosis, right 80% stenosis of right ICA Dizzy spells Intermittent x two years per vascular records Psoriatic arthritis Follows with rheum Cardiac pacemaker s/p complete heart block Jul 2011- DDDR pacemaker Mitral valve insufficiency s/p Jordyn-Camarena mitral valve ring, #28, July 2011 Benign prostatic hyperplasia with urinary obstruction and other lower urinary tract symptoms Asthma Nephrolithiasis passed on own Paroxysmal atrial fibrillation Dx 2009> pacer/ Xarelto Brain aneurysm - with repair> [facility] > was in hospital for 12 weeks > 2009 - stable findings following right frontal craniotomy per 10/[address] - CT angiogram 02/03/2013- post surgical changes - no longer needs to follow with neuro per PCP office visit 11/2024 Left hand weakness 2022- PCP recommended PT Rheum ordered EMG testing at 11/2024 appt GERD (gastroesophageal reflux disease) hx> none at present NSVT (nonsustained ventricular tachycardia) Migratory polyarthritis Abnormal liver enzymes stable x years per PCP records; daily alcohol use CHF (congestive heart failure) follows with Dr. Dinero EF 60-65% on 04/2024 ECHO CAD (coronary artery disease), [place] coronary artery - non interveneable RCA, July 2011 - 30 to 40% LAD and OM 3, small nondominant RCA with moderate disease, April 2018 Aortic stenosis severe secondary to bicuspid AV Jordyn-Camarena pericardial AVR #21 (2011) Later TAVR 2018 Exercise / Class Metabolic Activity III < 4 Walking/Shop/Light housework Past Family History Family History Father Pancreatic malignant neoplasm Malignant Pancreatic Neoplasm Colorectal cancer Denies family history of Ovarian cancer Prostate cancer Myocardial infarction Breast cancer Past Surgical History Surgical History History of cardiac cath 2018 no stents History of colonoscopy Hx of inguinal hernia repair Hx of vasectomy History of cataract surgery bilat History of mitral valve repair 2011 History of tonsillectomy and adenoidectomy History of cerebral aneurysm repair 2010 History of craniotomy 2009 (brain aneurysm) History of heart valve replacement 2012= AVR > [place] Later TAVR in 2018 in [place] Past Anesthesia History No Hx of Anesthesia Complications and No Family Hx of Anesthesia Complications History of PONV No Hx of PONV and No Hx of Motion Sickness Social History Smoking Status: Never smoker Do You Dip or Chew Tobacco: No Hx Alcohol Use: Yes Alcohol type: wine and hard liquor alcohol intake frequency: 3 or more drinks per day Hx Substance Use: No substance use type: does not use Physical Exam Vital Signs Last Vital Signs Temp 36.7 C 05/05/25 07:49 Pulse 70 05/05/25 07:49 Resp 18 05/05/25 07:49 BP 178/81 H 05/05/25 07:49 Pulse Ox 96 05/05/25 07:49 O2 Del Method Room Air 05/05/25 07:49 Testing Laboratory Results 05/04/25 11:23 05/04/25 11:23 Urine Color Yellow 05/04/25 11:46 Urine Appearance Clear (Clear) 05/04/25 11:46 Urine pH 7.5 (4.5-7.5) 05/04/25 11:46 Ur Specific [place] 1.014 (1.000-1.030) 05/04/25 11:46 Urine Protein Negative (Negative) 05/04/25 11:46 Urine Glucose (UA) Negative (Negative) 05/04/25 11:46 Urine Ketones Trace (Negative) H 05/04/25 11:46 Urine Nitrite Negative (Negative) 05/04/25 11:46 Ur Leukocyte Esterase Trace (Negative) H 05/04/25 11:46 Urine WBC (Auto) 0-5 /hpf (0-5) 05/04/25 11:46 Urine RBC (Auto) 0-2 /hpf (0-2) 05/04/25 11:46 U Hyaline Cast (Auto) 0-2 /lpf (0-2) 05/04/25 11:46 U Epithel Cells (Auto) 0-2 /hpf (0-2) 05/04/25 11:46 Urine Bacteria (Auto) None Seen (None Seen) 05/04/25 11:46 05/04/25 11:23 Aerobic Blood Culture - Preliminary Blood Gram positive cocci in chains Anaerobic Blood Culture - Preliminary Gram positive cocci in chains Electrocardiogram Date: 05/04/25 Findings: + NSR @ (@ 84;septal infarct,age ?) Chest X-Ray Date: 05/04/25 Findings: + NAD, + infiltrate (RLL infiltrate) and + pulmonary vascular congestion Echocardiogram Date: 05/04/25 EF: 65% LV Function: normal RWMA: + none Other Findings: + atrial enlargement (LA mild dilation) and + LVH (mild) Valvular Disease: + (Bioprosthetic AV w/ severe ) and + MS (moderate - severe MS) RV sys pressure 40-50 [facility]
--- NOTE | 2025-05-05 09:31 | Hospitalist Progress Note ---
Date of Service May 05, 2025 Assessment & Plan (1) Bacteremia due to Enterococcus: Plan: Ella Mccracken is a 79 yo male with PMH of brain aneurysm and SAD, CAD with bypass surgery; AVR, mitral valve, incomplete bladder emptying, psoiartic arthritis, pacemaker, he was admitted from 04/26-04/27 with fall and syncope episode. normally, he can walk several miles per days on 05/04/2025, he's presented to our hospital with bacteremia, right hip pain, dizziness, he's was in our ED a day prior with UTI and dc with ciprofloxacin echo was ordered to r/o vegetation, given his hx of psoaritis arthritis, right hip MRI and pelvis MRI was order to r/o fluid collection 1. bacteremia from E. facelis 2. syncope event 3. right hip pain 4. hx of AvR and mitral valve annuloplasty, CAD with bypass 5. hx of carotid stent on plavix 6. 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 psoriatic arthritis 8. A-fib on eliquis 9. sick sinus with pacemaker 10. GERD 11. hx of statin myopathy 1. bacteremia, from E facelis vancomycin, ID evaluation, echo to r/o vegetation last colonoscopy was more than 10 years ago s/p echo on 05/04 plan for RORO today 05/05 2. syncope event. CTA to brain aneurysm CTA found stenosis high grade stenosis in right posterior cerebal artery EEG, check ammonia level noted he has subarachnoid hemorrhage 10-15 years from brain aneurysm his CTA on 05/04 show clips of anterior communicating artery elevated PSA level; f/u with urologist 3. acute right hip pain, denied hx of trauma, or hip repair his pacemaker is not compatible with our MRI machine his CT hip show hip arthritis 4. b/l carotid stenosis, carotid stent on plavix patient has Right TCAR procedure on December 2024 5. psoriatic arthritis, he's on Taltz auto-injector 6. A-fib, eliquis 5mg BID, metoprolol XL 100mg 7. hypertension, amlodipine 10mg daily 8. asthma, he's on fluticasone-salmeterol 100 mcg-50mg q12 hours 9, CAD with bypass surgery 10-15 years ago, pravastatin 10mg he's on aspirin and plavix 10. b12 deficiency, b12 1000mcg (2) UTI (urinary tract infection): (3) Right hip pain: Admission and Anticipated Discharge Date Admission Date: May 04, 2025 Subjective he's still has right hip pain and show hip osteoarthritis he's bacteremia, plan for repeat blood culture tomorrow morning RORO today; been NPO after midnight his PSA is elevated at 9.3--9.5 no other distress no chest pain, no shortness of breath no dysuria Review of Systems Review of Systems: Constitutional: no fever; no chill Cardiovascular: No Chest Pain, No SOB, No PND, No Dyspnea on Exertion, No Orthopnea, No Claudication, No Edema, No Palpitations Respiratory: No Cough, No Sputum, No Wheezing, No Smoke Exposure, No Dyspnea Gastrointestinal: No Nausea, No Vomiting, No Diarrhea, No Constipation, No Pain, No Heartburn, No Anorexia, No Dysphagia, No Hematochezia Genitourinary: + for dysuria Musculoskeletal: + for right hip pain; + for low back pain Skin: No Skin Lesions, No Pruritis, No Hair Changes, No Breast/Skin Changes, No Nipple Discharge Neuro: + for falling episode Physical Exam Physical Exam: VITALS: Reviewed. WEIGHT/BMI reviewed. GEN: Healthy appearing, well-developed, NAD. HEENT -Head: NC/AT; -Eyes: PERRL, EOMI. No discharge or redn ess; NECK: Supple, with no masses. CV: RRR, no m/r/g. + for murmur; LUNGS: CTAB, no w/r/c. ABD: Soft, NT/ND, NBS, no masses or organomegaly. MSK: No deformities, Normal gait. EXT: No clubbing, cyanosis, or edema. NEURO: AAOx3 Results & Data Results & Data Vital Signs (Past 12 Hours) Vital Signs Temp Pulse Pulse Resp BP BP Pulse Ox 05/05/25 07:49 36.7 C 70 18 178/81 H 96 05/05/25 07:45 05/05/25 06:45 71 05/05/25 03:30 36.9 C 69 12 172/76 H 96 05/04/25 23:00 83 05/04/25 22:49 36.7 C 81 14 171/77 H 96 05/04/25 22:01 37.0 C 88 18 177/89 H 97 05/04/25 21:33 84 22 159/84 H 95 O2 Del Method 05/05/25 07:49 Room Air 05/05/25 07:45 Room Air 05/05/25 06:45 05/05/25 03:30 Room Air 05/04/25 23:00 05/04/25 22:49 Room Air 05/04/25 22:01 Room Air 05/04/25 21:33 Room Air Laboratory Results Laboratory Results - last 72 hr 05/04/25 05/04/25 05/05/25 11:23 11:46 06:41 WBC 4.98 RBC 2.81 L Hgb 9.5 L Hct 28.3 L MCV 100.7 H MCH 33.8 MCHC 33.6 RDW Std Deviation 57.2 H RDW Coeff of Andres 15.5 H Plt Count 153 MPV 11.0 Immature Gran % (Auto) 0.8 Neut % (Auto) 75.1 Lymph % (Auto) 6.4 Person % (Auto) 17.3 Eos % (Auto) 0.2 Baso % (Auto) 0.2 Neut # (Auto) 3.74 Lymph # (Auto) 0.32 L Person # (Auto) 0.86 H Eos # (Auto) 0.01 Baso # (Auto) 0.01 Immature Gran # (Auto) 0.04 VBG pH 7.37 VBG pCO2 37 L VBG pO2 36 VBG HCO3 21 VBG O2 Saturation < 60.0 VBG Base Excess -3.5 Sodium 131 L Potassium 4.2 Chloride 102 Carbon Dioxide 22 Anion Gap 7 BUN 17 Creatinine 0.78 Est Cr Clr Drug Dosing Not Reportable eGFR 91.85 BUN/Creatinine Ratio 21.8 H Glucose 130 H Lactate 1.7 Calcium 8.9 Magnesium 2.0 Total Bilirubin 0.7 Direct Bilirubin 0.2 AST 39 ALT 46 Alkaline Phosphatase 65 Total Creatine Kinase 124 Troponin I High Sens 17.6 Total Protein 7.3 Albumin 3.9 Prostate Specific Ag 9.396 H Procalcitonin 6.14 H Urine Color Yellow Urine Appearance Clear Urine pH 7.5 Ur Specific Alden 1.014 Urine Protein Negative Urine Glucose (UA) Negative Urine Ketones Trace H Urine Blood Negative Urine Nitrite Negative Urine Bilirubin Negative Urine Urobilinogen Negative Ur Leukocyte Esterase Trace H Urine WBC (Auto) 0-5 Urine RBC (Auto) 0-2 U Hyaline Cast (Auto) 0-2 U Epithel Cells (Auto) 0-2 Urine Bacteria (Auto) None Seen Urine Comment Enterococc faecalis PCR DETECTED A Toribio/B-Vanco Res Genes VRE Not Detected Bld Cult ID Panel PCR See PCR Comment Diagnostic Findings Laboratory Results WBC 4.98 K/ul (4.8-10.8) 05/04/25 11:23 RBC 2.81 M/uL (4.70-6.10) L 05/04/25 11:23 Hgb 9.5 g/dl (14.0-18.0) L 05/04/25 11:23 Hct 28.3 % (42.0-52.0) L 05/04/25 11:23 MCV 100.7 fL (80.0-100.0) H 05/04/25 11:23 MCH 33.8 pg (25.0-34.0) 05/04/25 11:23 MCHC 33.6 g/dL (32.0-36.0) 05/04/25 11:23 RDW Std Deviation 57.2 fL (36.4-46.3) H 05/04/25 11:23 RDW Coeff of Andres 15.5 % (11.5-14.5) H 05/04/25 11:23 Plt Count 153 K/uL (130-400) 05/04/25 11:23 MPV 11.0 fL (9.4-12.4) 05/04/25 11:23 Immature Gran % (Auto) 0.8 % 05/04/25 11:23 Neut % (Auto) 75.1 % 05/04/25 11:23 Lymph % (Auto) 6.4 % 05/04/25 11:23 Person % (Auto) 17.3 % 05/04/25 11:23 Eos % (Auto) 0.2 % 05/04/25 11:23 Baso % (Auto) 0.2 % 05/04/25 11:23 Neut # (Auto) 3.74 K/uL (1.40-6.50) 05/04/25 11:23 Lymph # (Auto) 0.32 K/uL (1.20-3.40) L 05/04/25 11:23 Person # (Auto) 0.86 K/uL (0.11-0.59) H 05/04/25 11:23 Eos # (Auto) 0.01 K/uL (0.00-0.50) 05/04/25 11:23 Baso # (Auto) 0.01 K/uL (0.00-0.20) 05/04/25 11:23 Immature Gran # (Auto) 0.04 K/uL (0.01-0.20) 05/04/25 11:23 VBG pH 7.37 (7.36-7.41) 05/04/25 11:23 VBG pCO2 37 mmHg (38-50) L 05/04/25 11:23 VBG pO2 36 mmHg 05/04/25 11:23 VBG HCO3 21 mmol/L 05/04/25 11:23 VBG O2 Saturation < 60.0 % 05/04/25 11:23 VBG Base Excess -3.5 mEq/L 05/04/25 11:23 Sodium 131 mmol/L (136-145) L 05/04/25 11:23 Potassium 4.2 mmol/L (3.5-5.1) 05/04/25 11:23 Chloride 102 mmol/L (98-107) 05/04/25 11:23 Carbon Dioxide 22 mmol/L (21-32) 05/04/25 11:23 Anion Gap 7 (3-11) 05/04/25 11:23 BUN 17 mg/dl (6-23) 05/04/25 11:23 Creatinine 0.78 mg/dl (0.6-1.4) 05/04/25 11:23 Est Cr Clr Drug Dosing Not Reportable 05/04/25 11:23 eGFR 91.85 05/04/25 11:23 BUN/Creatinine Ratio 21.8 (10-20) H 05/04/25 11:23 Glucose 130 mg/dl (70-99(Fasting)) H 05/04/25 11:23 Lactate 1.7 mmol/L (0.4-2.0) 05/04/25 11:23 Calcium 8.9 mg/dl (8.6-10.3) 05/04/25 11:23 Magnesium 2.0 mg/dl (1.7-2.4) 05/04/25 11:23 Total Bilirubin 0.7 mg/dl (0.2-1.0) 05/04/25 11:23 Direct Bilirubin 0.2 mg/dl (0-0.2) 05/04/25 11:23 AST 39 U/L (13-39) 05/04/25 11:23 ALT 46 U/L (7-52) 05/04/25 11:23 Alkaline Phosphatase 65 U/L (34-104) 05/04/25 11:23 Total Creatine Kinase 124 U/L (30-223) 05/05/25 06:41 Troponin I High Sens 17.6 pg/ml (0-20) 05/04/25 11:23 Total Protein 7.3 gm/dl (6.0-8.3) 05/04/25 11:23 Albumin 3.9 gm/dl (3.4-5.0) 05/04/25 11:23 Prostate Specific Ag 9.396 ng/ml (0-4) H 05/05/25 06:41 Procalcitonin 6.14 ng/ml (0-0.5) H 05/04/25 11:23 Urine Color Yellow 05/04/25 11:46 Urine Appearance Clear (Clear) 05/04/25 11:46 Urine pH 7.5 (4.5-7.5) 05/04/25 11:46 Ur Specific Alden 1.014 (1.000-1.030) 05/04/25 11:46 Urine Protein Negative (Negative) 05/04/25 11:46 Urine Glucose (UA) Negative (Negative) 05/04/25 11:46 Urine Ketones Trace (Negative) H 05/04/25 11:46 Urine Blood Negative (Negative) 05/04/25 11:46 Urine Nitrite Negative (Negative) 05/04/25 11:46 Urine Bilirubin Negative (Negative) 05/04/25 11:46 Urine Urobilinogen Negative (Negative) 05/04/25 11:46 Ur Leukocyte Esterase Trace (Negative) H 05/04/25 11:46 Urine WBC (Auto) 0-5 /hpf (0-5) 05/04/25 11:46 Urine RBC (Auto) 0-2 /hpf (0-2) 05/04/25 11:46 U Hyaline Cast (Auto) 0-2 /lpf (0-2) 05/04/25 11:46 U Epithel Cells (Auto) 0-2 /hpf (0-2) 05/04/25 11:46 Urine Bacteria (Auto) None Seen (None Seen) 05/04/25 11:46 Urine Comment 05/04/25 11:46 Enterococc faecalis PCR DETECTED (NotDetected) A 05/04/25 11:23 Toribio/B-Vanco Res Genes VRE Not Detected (NotDetected) 05/04/25 11:23 Bld Cult ID Panel PCR See PCR Comment (NotDetected) 05/04/25 11:23 Impressions Chest X-Ray 05/04/25 10:53 XR chest 1V portable CLINICAL HISTORY: Sepsis COMPARISON STUDY: 05/02/2025 FINDINGS: Stable cardiac valve repair and pacemaker. Stable cardiomegaly with mild pulmonary vascular congestion. Inspiration is shallow. There is interval mild stranding opacity at the right lung base. No other consolidation or pleural effusion. No pneumothorax. IMPRESSION: 1. Mild CHF. 2. Atelectasis versus early pneumonia right lung base. ACT 112: Negative or not required by law. Electronically signed by: Andres Hutchinson M.D. 05/04/2025 11:43 AM Hip/Pelvis X-Ray 05/04/25 11:01 XR hip RT 2V w pelvis CLINICAL HISTORY: Right hip pain, sepsis. COMPARISON: Pelvis radiograph January 04, 2023. CT of the abdomen and pelvis April 26, 2025. FINDINGS: The sacroiliac joints and symphysis pubis are intact. There are no fractures within the pelvis or hips. No suspicious osseous lesions are identified. There is mild to moderate osteoarthritis of both hips. IMPRESSION: 1. No fractures within the pelvis or hips. 2. Mild to moderate bilateral hip osteoarthritis. ACT 112: Negative or not required by law. Electronically signed by: Silver Carroll M.D. 05/04/2025 11:44 AM Abdomen/Pelvis CT 05/04/25 13:00 CT abdomen pelvis wo/w con HISTORY: 79 years-old Male right hip pain, posterior lateral acute pain of the pelvis and right hip without reported trauma COMPARISON: Right hip CT of same day, CT abdomen and pelvis 04/26/2025 TECHNIQUE: Multiple axial CT images of the pelvis were obtained with and without IV contrast. A dose lowering technique was used consistent with the principals of ALARA. FINDINGS: Cardiomegaly with prosthetic aortic valve. Sternotomy wires are present. Fusiform dilation of the ascending thoracic aorta, 4 cm. Small pleural effusions with mild dependent bibasilar atelectasis. No pneumatosis or pneumoperitoneum. Hepatic steatosis. Patency of the hepatic and portal veins. Unremarkable spleen, gallbladder and adrenal glands. 8 mm cystic focus of the pancreas image 1:15 series 9, possibly a sidebranch IPMN. No hydronephrosis. Small cyst of the posterior aspect inferior pole right kidney. No renal or ureteral calculi or hydronephrosis. No enhancing renal mass lesions. Prostatomegaly with heterogeneous enhancement. Urinary bladder wall thickening suggestive of chronic outlet obstruction. Atherosclerosis of the aorta without aneurysm. Borderline-enlarged periportal lymph nodes measure up to 11 mm, favored to be benign. Mild distal esophageal wall thickening with subcentimeter lymph nodes and trace adjacent inflammatory stranding. Colonic diverticulosis without acute diverticulitis. Mild to moderate colonic fecal retention. No acute fracture. IMPRESSION: 1. Stable exam compared to the study from 04/26/2025. 2. No acute intra-abdominal or intrapelvic abnormality. 3. Enlarged heterogeneously enhancing prostate. Correlate with PSA. 4. Hepatic steatosis. 5. Small pleural effusions. 6. Additional findings as above. ACT 112: Negative or not required by law. The above report was generated using voice recognition software. It may contain grammatical, syntax or spelling errors. Electronically signed by: Kartik Simons M.D. 05/04/2025 3:[address] 05/04/25 13:00 CT hip RT wo/w con CLINICAL HISTORY: Right hip pain. COMPARISON STUDY: Right hip radiographs performed earlier today. CT of the abdomen and pelvis April 26, 2025. TECHNIQUE: Axial images of the right hip were obtained before and after intravenous administration of 118 cc Optiray 320 IV. Coronal and sagittal reformats were viewed. A dose lowering technique was utilized adhering to the principles of ALARA. FINDINGS: Incidental note is made of moderate enlargement of the prostate. The prostate measures 5.7 cm in transverse diameter. The bladder is distended. These findings are better depicted on the abdomen and pelvis CT which will be reported separately. Alignment of the right hip is anatomic. There is no fracture. No osseous lesions are present. There is moderate posterior hip joint space narrowing. There is associated osteophytosis. There is no evidence for avascular necrosis of the right femoral head. No fluid collection is identified. Minimal subcutaneous stranding of the lateral right thigh is unchanged. There is no right inguinal lymphadenopathy. IMPRESSION: 1. No fractures within the right hip. 2. Moderate right hip osteoarthritis. ACT 112: Negative or not required by law. Electronically signed by: Silver Carroll M.D. 05/04/2025 3:15 PM Head CTA 05/04/25 13:01 CT angio head w con CLINICAL HISTORY: 79 years-old Male with syncope, hx of brain aneursym. Acute syncope COMPARISON STUDY: Head CT 05/02/2025, CTA head from outside facility 04/26/2011. TECHNIQUE: Following the IV administration of 118 cc of Optiray, CT angiogram of the brain was performed from the skull base to the vertex. Images are reviewed in the axial, sagittal, and coronal planes. 3-D MIPS images are created and assessed. IV contrast was administered without complication. All measurements we re obtained according to NASCET criteria. A dose lowering technique was utilized adhering to the principles of ALARA. CT DOSE: 3527.09 mGy.cm FINDINGS: Involutional changes with probable chronic microvascular ischemic disease.Postoperative changes of prior right frontal craniotomy. Coastal thickening of the paranasal sinuses. Prior bilateral lens repair. 3.2 x 2.4 cm left parietal scalp hematoma has increased in size from prior. Calcifications of the central vandana are again seen. CT ANGIOGRAM OF THE BRAIN: The imaged bilateral internal carotid arteries are patent. Partially imaged ar terial stent within the distal cervical segment right ICA. The bilateral anterior and middle cerebral arteries are also patent. There is a 4 cm segment of the T1 segment right posterior cerebral artery demonstrating high-grade stenosis, image 114 series 7 which has worsened from prior. The left posterior cerebral artery is widely patent. Aneurysmal clipping noted involving the anterior communicating artery. Dural sinuses appear patent. IMPRESSION: 1. Increased size of the left parietal scalp hematoma. 2. High-grade stenosis of the right posterior cerebral artery. 3. 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 ACT 112: Negative or not required by law. The above report was generated using voice recognition software. It may contain grammatical, syntax or spelling errors. Electronically signed by: Kartik Simons M.D. 05/04/2025 3:24 PM PG Care Time/CCT Total # of Minutes Spent Total Time Spent with Patient: Total time spent is greater than 50% in coordination of care (as documented) at patient's floor/unit and/or counseling patient: Coding Level of Care Code 60572 SUB INP/OBS CARE 08/01MIN Diagnoses Bacteremia due to Enterococcus R78.81; B95.2 UTI (urinary tract infection) N39.0 Right hip pain M25.551 Time Spent (min) 20
[2025-05-05] MEDS ORDERED: PROPOFOL IV EMULSION 10 MG/ML 20 ML VIAL IV ONE ×2 (10:54→10:56)
--- NOTE | 2025-05-05 12:04 | Anesthesiology Progress Note ---
Date of Service May 05, 2025 Anesthesia Post Procedure Vital Signs Vital Signs: Temp Pulse Pulse Resp BP BP Pulse Ox 05/05/25 11:51 68 18 126/62 93 05/05/25 11:41 67 18 122/60 95 05/05/25 11:26 65 14 108/70 97 05/05/25 10:50 77 16 192/90 H 96 05/05/25 07:49 36.7 C 70 18 178/81 H 96 05/05/25 07:45 05/05/25 06:45 71 05/05/25 03:30 36.9 C 69 12 172/76 H 96 05/04/25 23:00 83 05/04/25 22:49 36.7 C 81 14 171/77 H 96 05/04/25 22:01 37.0 C 88 18 177/89 H 97 05/04/25 21:33 84 22 159/84 H 95 05/04/25 19:14 76 18 163/81 H 97 05/04/25 16:37 75 18 154/74 H 96 05/04/25 15:00 83 18 143/81 H 93 05/04/25 13:00 81 21 160/85 H 97 05/04/25 13:00 81 21 160/85 H 97 O2 Del Method 05/05/25 11:51 Room Air 05/05/25 11:41 Room Air 05/05/25 11:26 Room Air 05/05/25 10:50 Room Air 05/05/25 07:49 Room Air 05/05/25 07:45 Room Air 05/05/25 06:45 05/05/25 03:30 Room Air 05/04/25 23:00 05/04/25 22:49 Room Air 05/04/25 22:01 Room Air 05/04/25 21:33 Room Air 05/04/25 19:14 Room Air 05/04/25 16:37 05/04/25 15:00 Room Air 05/04/25 13:00 Room Air 05/04/25 13:00 Room Air Pain Intensity Generalized: Pain Intensity: 8 Transfer of Care Handoff Completed per policy Notes Mental Status: alert / awake / arousable and participated in evaluation Patient Amnestic to Procedure: Yes Nausea / Vomiting: adequately controlled Pain: adequately controlled Airway Patency, RR, SpO2: stable & adequate BP & HR: stable & adequate Hydration State: stable & adequate Anesthetic Complications: no major complications apparent
[2025-05-05] MEDS: PRAVASTATIN SOD 10 MG TAB PO SCH (12:10)
[2025-05-05] MEDS: CYANOCOBALAMIN (B-12) 500 MCG TABLET PO SCH (12:10)
[2025-05-05] MEDS: CLOPIDOGREL BISULFATE 75 MG TAB PO SCH (12:10)
[2025-05-05] MEDS: FLUTICASONE/VILANTEROL 200/25MCG 14 PUFFS/INHALER INH SCH (12:10)
[2025-05-05] MEDS: BENZOCAINE/TETRACAIN/BUTAM 50 APPLN/5 GM CAN EXT ONE (12:54)
--- NOTE | 2025-05-05 14:54 | XCELERA ---
[id number]
--- NOTE | 2025-05-05 15:28 | Infectious Disease Progress Nt ---
Date of Service May 05, 2025 Assessment & Plan (1) Bacteremia due to Enterococcus: (2) UTI (urinary tract infection): (3) History of aortic valve replacement: Plan ID Problem List: # E. faecalis bacteremia, pacemaker lead infection, presumed PVE of the aortic valve # UCx + E. faecalis, possible UTI # History of bioprosthetic AV replacement # History of mitral valve annuloplasty # History of sick sinus syndrome s/p pacemaker # History of psoriatic arthritis on Taltz (ixekizumab) # Reported antibiotic allergy: penicillins (rash) Impression: Ella Mccracken is a 79-year-old man with history of history of s/p aortic valve replacement 2011, mitral valve annuloplasty, SSS s/p PPM 2011, Afib on Eliquis, CAD s/p CABG, brain aneurysm c/b SDH s/p clipping 2009, psoriatic arthritis on Taltz (ixekizumab), recent admission 04/26-04/27/25 with syncope, ED visit on 05/02/25, who presents to [facility] on 05/04/25 d/t BCx from 05/02 showing E. faecalis bacteremia. ID is consulted for E. faecalis bacteremia. The patient was recently admitted from 04/26-04/27 with fall and syncope episode with head injury. He was found to have a small scalp hematoma. His syncope was felt to be vasovagal. He had his PPM interrogated without issue. The patient was seen in the ED on 05/02/25 for increasing weakness since his hospitalization and had some dysuria. At the time, he was afebrile, WBC 9.48 Hgb 9.5 plt 215 Cr 0.81 LFTs wnl. UA with 21-50 WBCs, 3-5 RBcs, 2+ bacteria, neg nitrite, 1+ LE. He was diagnosed with UTI and discharged to complete a course of ciprofloxacin. His BCx from 05/02 are growing E. faecalis. He is also reporting R hip pain and dizziness. He still has a small amount of dysuria. 05/04 TTE without reported mass/vegetation; abnormal gradient for bioprosthetic AV, severe , moderate mitral annular calcification, severe MS, elevated RVSP, borderline aortic root dilatation. 05/[address] without fracture, showing moderate R hip OA. 05/04 head CTA showing increased size of the L parietal hematoma from prior; high-grade stenosis of the R [employer], aneurysmal clips of the HERNESTO. Discussion Pt presenting with E. faecalis bacteremia, in the setting of recent syncope (no BCx obtained that admission), and also reporting dysuria, dizziness, and R hip pain. Now confirmed on RORO to have pacemaker lead infection, and although not seen on RORO presumed to have PVE of the aortic valve. 05/04 TTE without reported mass/vegetation; abnormal gradient for bioprosthetic AV, severe , moderate mitral annular calcification, severe MS, elevated RVSP, borderline aortic root dilatation. Given abnormal TTE and history of AVR/PPM, recommended RORO. 05/05 RORO showing small mobile mass on a pacemaker lead in the right atrium; bioprosthetic aortic valve without obvious masses or vegetations but image quality compromised by the structure of the valve; moderate-severe mitral stenosis, calcified mitral annulus without e/o vegetation. Would discuss with cardiology to see whether PPM removal is an option. BCx from 05/02 positive; repeat BCx from 05/04 remain positive as well. Recommend repeating BCx q48h until clear. Would continue to monitor closely for any new/worsening focal complaints (e.g., joint pain, back pain) with low threshold to image/evaluate as possible metastatic infection. If ongoing pelvic/hip pain, would consider MRI. The original source of the E. faecalis is unclear; UA with pyuria and pt with dysuria, and UCx with E. faecalis as well; CT A/P without e/o ascending UTI but does show enlarged enhancing prostate. Pt has not had a C-scope for >10 years. For now, would continue IV daptomycin. Pt with history of penicillins (rash during childhood, does not think it required hospitalization). Discussed with ID pharmacist and Dr. Ross of allergy, and will proceed with graded challenge with amoxicillin. If tolerating, will change to IV ampicillin, along with ceftriaxone, for synergy. Currently anticipate at least a 6-week course of IV abx, pending BCx clearance and cardiology evaluation for possible PPM removal. If PPM/lead are not able to be removed, then will need to consider indefinite suppressive therapy after completion of IV abx. Recommendations: - Continue daptomycin 750 mg IV q24h (10 mg/kg) for E. faecalis bacteremia - Plan on amoxicillin test dose/graded challenge tomorrow 05/06. If tolerating, will change to IV ampicillin (along with synergistic ceftriaxone) for the E. faecalis - Currently anticipate at least a 6-week course, pending BCx clearance and cardiology evaluation for possible PPM removal. - Repeat BCx ordered for 05/05. Recommend repeat BCx q48h to evaluate for clearance - Continue to monitor closely for any new/worsening focal complaints (e.g., joint pain, back pain) with low threshold to image/evaluate as possible m etastatic infection - Would discuss with cardiology to see whether PPM removal is an option. - If ongoing pelvic/hip pain, would consider MRI ID will continue to follow. Angela Arias MD, MHS Infectious Diseases [facility]/ID Connect ID Connect direct line: [phone] Admission and Anticipated Discharge Date Admission Date: May 04, 2025 Subjective This patient recommendation is based on a telemedicine consult request which was completed asynchronously through chart review and information provided by the primary physician. The patient was not seen or examined today. The evaluation is consultative in nature and all patient care and treatment decisions can either be accepted or rejected by the patient's primary hospital-based treating physician using their own independent medical judgment for their patient. PLEASE NOTE: E-consult was performed for this visit given that patient was not in room at the time of attempted rounding. Time Spent Reviewing Chart: 31+ minutes PLEASE NOTE: E-consult was performed for this visit given that patient was not in room at the time of attempted rounding. - 05/05 RORO showing small mobile mass on a pacemaker lead in the right atrium; bioprosthetic aortic valve without obvious masses or vegetations but image quality compromised by the structure of the valve; moderate-severe mitral stenosis, calcified mitral annulus without e/o vegetation - Last colonoscopy was over 10 years ago - 05/04 BCx + GPCs - Afebrile, WBC 4.98 Results & Data Vital Signs (Past 12 Hours) Vital Signs Temp Pulse Pulse Resp BP BP Pulse Ox 05/05/25 14:00 36.9 C 68 16 135/68 93 05/05/25 13:32 37.1 C 67 18 148/73 H 92 05/05/25 13:00 36.5 C 73 18 168/76 H 95 05/05/25 12:57 74 05/05/25 12:45 36.5 C 70 17 169/76 H 97 05/05/25 12:26 36.5 C 65 18 161/78 H 95 05/05/25 12:15 36.7 C 67 16 152/75 H 95 05/05/25 12:00 36.9 C 67 17 149/70 H 95 05/05/25 11:56 68 18 126/62 93 05/05/25 11:41 67 18 122/60 95 05/05/25 11:26 65 14 108/70 97 05/05/25 10:50 77 16 192/90 H 96 05/05/25 07:49 36.7 C 70 18 178/81 H 96 05/05/25 07:45 05/05/25 06:45 71 05/05/25 03:30 36.9 C 69 12 172/76 H 96 O2 Del Method 05/05/25 14:00 Room Air 05/05/25 13:32 Room Air 05/05/25 13:00 Room Air 05/05/25 12:57 05/05/25 12:45 Room Air 05/05/25 12:26 Room Air 05/05/25 12:15 Room Air 05/05/25 12:00 Room Air 05/05/25 11:56 Room Air 05/05/25 11:41 Room Air 05/05/25 11:26 Room Air 05/05/25 10:50 Room Air 05/05/25 07:49 Room Air 05/05/25 07:45 Room Air 05/05/25 06:45 05/05/25 03:30 Room Air Laboratory Results Diagnostics: 05/05 RORO Small mobile mass on a pacemaker lead in the right atrium; bioprosthetic aortic valve without obvious masses or vegetations but image quality compromised by the structure of the valve; moderate-severe mitral stenosis, calcified mitral annulus without e/o vegetation 05/04 head CTA 1. Increased size of the left parietal scalp hematoma. 2. High-grade stenosis of the right posterior cerebral artery. 3. 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 05/[address] 1. No fractures within the right hip. 2. Moderate right hip osteoarthritis. 05/04 TTE without reported mass/vegetation; abnormal gradient for bioprosthetic AV, severe , moderate mitral annular calcification, severe MS, elevated RVSP, borderline aortic root dilatation 05/04 CT A/P w/ contrast 1. Stable exam compared to the study from 04/26/2025. 2. No acute intra-abdominal or intrapelvic abnormality. 3. Enlarged heterogeneously enhancing prostate. Correlate with PSA. 4. Hepatic steatosis. 5. Small pleural effusions. 6. Additional findings as above. 05/04 CT A/P with contrast without acute intraabdominal abnormality; enlarged enhancing prostate. Micro Data: 05/05 BCx x2: PEND 05/04 BCx x2: GPCs in chains in 1/2 sets (2/4 bottles) 05/02 BCx x2: E. faecalis in 1/2 sets (1/4 bottles) 05/02 UCx: E. faecalis Antibiotic Summary: daptomycin (05/04 present) prior vancomycin (05/04)
[2025-05-06] MEDS ORDERED: CLOPIDOGREL BISULFATE 75 MG TAB PO SCH (09:00)
[2025-05-06 09:27] LABS: Hematocrit (blood only) 29.1 % (42.0-52.0); Hemoglobin 9.4 g/dl (14.0-18.0); Mean Corpuscular Hemoglobin 32.0 pg (25.0-34.0); Mean Corpuscular Volume 99.0 fL (80.0-100.0); Platelet Count 201 K/uL (130-400); RDW Standard Deviation 54.4 fL (36.4-46.3); Red Blood Count 2.94 M/uL (4.70-6.10); White Blood Count 7.28 K/ul (4.8-10.8)
[2025-05-06 09:49] LABS: Alanine Aminotransferase 29.0 U/L (7-52); Albumin Globulin Ratio 0.9 (0.9-2); Albumin Level 3.3 gm/dl (3.4-5.0); Alkaline Phosphatase 57.0 U/L (34-104); Anion Gap 8.0 (3-11); Bilirubin,Total 1.1 mg/dl (0.2-1.0); Blood Urea Nitrogen 19.0 mg/dl (6-23); Calcium 8.8 mg/dl (8.6-10.3); Carbon Dioxide 24.0 mmol/L (21-32); Chloride 102.0 mmol/L (98-107); Creatinine Clr Calc Pharmacy 76.7 ml/min; Globulin 3.8 gm/dl (2.5-4.0); Glucose 124.0 mg/dl (70-99(Fasting)); Potassium 4.0 mmol/L (3.5-5.1); Sodium 134.0 mmol/L (136-145); Total Protein 7.1 gm/dl (6.0-8.3)
--- NOTE | 2025-05-06 10:09 | Hospitalist Progress Note ---
Date of Service May 06, 2025 Assessment & Plan (1) Bacteremia due to Enterococcus: Plan: Ella Mccracken is a 79 yo male with PMH of brain aneurysm and SAD, CAD with bypass surgery; AVR, mitral valve, incomplete bladder emptying, psoiartic arthritis, pacemaker, he was admitted from 04/26-04/27 with fall and syncope episode. normally, he can walk several miles per days on 05/04/2025, he's presented to our hospital with bacteremia, right hip pain, dizziness, he's was in our ED a day prior with UTI and dc with ciprofloxacin echo was ordered to r/o vegetation, given his hx of psoaritis arthritis, right hip MRI and pelvis MRI was order to r/o fluid collection 1. bacteremia from E. facelis 2. syncope event 3. right hip pain 4. hx of AvR and mitral valve annuloplasty, CAD with bypass 5. hx of carotid stent on plavix 6. 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 psoriatic arthritis 8. A-fib on eliquis 9. sick sinus with pacemaker 10. GERD 11. hx of statin myopathy 1. bacteremia, from E facelis vancomycin, ID evaluation, echo to r/o vegetation last colonoscopy was more than 10 years ago s/p echo on 05/04 RORO concerned for vegetation around the pacemaker spoke with cardiology, Dr. Kahn, defer extraction of device. ID suspect he need usp suppression with amoxicillin he is agreeable for amoxicillin challenge 2. syncope event. CTA negative for rupture aneurysm CTA found stenosis high grade stenosis in right posterior cerebral artery patient has subarachnoid hemorrhage 10-15 years from brain aneurysm his CTA on 05/04 show clips of anterior communicating artery elevated PSA level; f/u with urologist 3. acute right hip pain, denied hx of trauma, or hip repair his pacemaker is not compatible with our MRI machine his CT hip show hip arthritis 4. b/l carotid stenosis, carotid stent on plavix patient has Right TCAR procedure on December 2024 5. psoriatic arthritis, he's on Taltz auto-injector 6. A-fib, eliquis 5mg BID, metoprolol XL 100mg 7. hypertension, amlodipine 10mg daily 8. asthma, he's on fluticasone-salmeterol 100 mcg-50mg q12 hours 9, CAD with bypass surgery 10-15 years ago, pravastatin 10mg he's on aspirin and plavix 10. b12 deficiency, b12 1000mcg (2) UTI (urinary tract infection): (3) Right hip pain: Admission and Anticipated Discharge Date Admission Date: May 04, 2025 Subjective repeat blood culture drawn yesterday he's is agreeable for amoxicillin challenge GI consulted for evaluation of enterococcus facelis bacteremia noted he's on plavix and aspirin no dizziness; no chest pain, he has insomnia episode last night as his roommate was agitated he's was relocate to a different room and responded well his CTA found high grade stenosis of posterior cerebral artery Physical Exam Physical Exam: VITALS: Reviewed. WEIGHT/BMI reviewed. GEN: Healthy appearing, well-developed, NAD. PSYCH: Good Judgment. AOx3. Normal memory, mood, and affect. HEENT -Head: NC/AT; -Nose: Normal nares. Neuro: AAOx3; 5/5 strength CV: RRR, no m/r/g. LUNGS: CTAB, no w/r/c. ABD: Soft, NT/ND, NBS, no masses or organomegaly. : N/A MSK: No deformities, Normal gait. EXT: right hip painful to rotation Results & Data Results & Data Vital Signs (Past 12 Hours) Vital Signs Temp Pulse Pulse Resp BP Pulse Ox O2 Del Method 05/06/25 07:51 37.2 C 71 16 150/71 H 93 Room Air 05/06/25 07:38 66 05/06/25 03:58 37.3 C 69 20 133/68 96 Room Air 05/06/25 00:26 81 05/06/25 00:25 36.5 C 75 20 172/75 H 93 Room Air 05/05/25 22:38 36.4 C L 75 18 135/72 91 Room Air Laboratory Results Laboratory Results - last 72 hr 05/04/25 05/04/25 05/05/25 11:23 11:46 06:41 WBC 4.98 RBC 2.81 L Hgb 9.5 L Hct 28.3 L MCV 100.7 H MCH 33.8 MCHC 33.6 RDW Std Deviation 57.2 H RDW Coeff of Andres 15.5 H Plt Count 153 MPV 11.0 Immature Gran % (Auto) 0.8 Neut % (Auto) 75.1 Lymph % (Auto) 6.4 [place] % (Auto) 17.3 Eos % (Auto) 0.2 Baso % (Auto) 0.2 Neut # (Auto) 3.74 Lymph # (Auto) 0.32 L [place] # (Auto) 0.86 H Eos # (Auto) 0.01 Baso # (Auto) 0.01 Immature Gran # (Auto) 0.04 VBG pH 7.37 VBG pCO2 37 L VBG pO2 36 VBG HCO3 21 VBG O2 Saturation < 60.0 VBG Base Excess -3.5 Sodium 131 L Potassium 4.2 Chloride 102 Carbon Dioxide 22 Anion Gap 7 BUN 17 Creatinine 0.78 Est Cr Clr Drug Dosing Not Reportable eGFR 91.85 BUN/Creatinine Ratio 21.8 H Glucose 130 H Lactate 1.7 Calcium 8.9 Magnesium 2.0 Total Bilirubin 0.7 Direct Bilirubin 0.2 AST 39 ALT 46 Alkaline Phosphatase 65 Total Creatine Kinase 124 Troponin I High Sens 17.6 Total Protein 7.3 Albumin 3.9 Globulin Albumin/Globulin Ratio Carcinoembryonic Ag Prostate Specific Ag 9.396 H Procalcitonin 6.14 H Urine Color Yellow Urine Appearance Clear Urine pH 7.5 Ur Specific [place] 1.014 Urine Protein Negative Urine Glucose (UA) Negative Urine Ketones Trace H Urine Blood Negative Urine Nitrite Negative Urine Bilirubin Negative Urine Urobilinogen Negative Ur Leukocyte Esterase Trace H Urine WBC (Auto) 0-5 Urine RBC (Auto) 0-2 U Hyaline Cast (Auto) 0-2 U Epithel Cells (Auto) 0-2 Urine Bacteria (Auto) None Seen Urine Comment Enterococc faecalis PCR DETECTED A Toribio/B-Vanco Res Genes VRE Not Detected Bld Cult ID Panel PCR See PCR Comment 05/06/25 08:48 WBC 7.28 RBC 2.94 L Hgb 9.4 L Hct 29.1 L MCV 99.0 MCH 32.0 MCHC 32.3 RDW Std Deviation 54.4 H RDW Coeff of Andres 15.0 H Plt Count 201 MPV 10.4 Immature Gran % (Auto) Neut % (Auto) Lymph % (Auto) [place] % (Auto) Eos % (Auto) Baso % (Auto) Neut # (Auto) Lymph # (Auto) [place] # (Auto) Eos # (Auto) Baso # (Auto) Immature Gran # (Auto) VBG pH VBG pCO2 VBG pO2 VBG HCO3 VBG O2 Saturation VBG Base Excess Sodium 134 L Potassium 4.0 Chloride 102 Carbon Dioxide 24 Anion Gap 8 BUN 19 Creatinine 0.78 Est Cr Clr Drug Dosing 76.7 eGFR 91.85 BUN/Creatinine Ratio 24.4 H Glucose 124 H Lactate Calcium 8.8 Magnesium Total Bilirubin 1.1 H D Direct Bilirubin AST 21 ALT 29 Alkaline Phosphatase 57 Total Creatine Kinase Troponin I High Sens Total Protein 7.1 Albumin 3.3 L Globulin 3.8 Albumin/Globulin Ratio 0.9 Carcinoembryonic Ag 0.7 Prostate Specific Ag Procalcitonin Urine Color Urine Appearance Urine pH Ur Specific [place] Urine Protein Urine Glucose (UA) Urine Ketones Urine Blood Urine Nitrite Urine Bilirubin Urine Urobilinogen Ur Leukocyte Esterase Urine WBC (Auto) Urine RBC (Auto) U Hyaline Cast (Auto) U Epithel Cells (Auto) Urine Bacteria (Auto) Urine Comment Enterococc faecalis PCR Toribio/B-Vanco Res Genes Bld Cult ID Panel PCR Diagnostic Findings Chest X-Ray 05/04/25 10:53 XR chest 1V portable CLINICAL HISTORY: Sepsis COMPARISON STUDY: 05/02/2025 FINDINGS: Stable cardiac valve repair and pacemaker. Stable cardiomegaly with mild pulmonary vascular congestion. Inspiration is shallow. There is interval mild stranding opacity at the right lung base. No other consolidation or pleural effusion. No pneumothorax. IMPRESSION: 1. Mild CHF. 2. Atelectasis versus early pneumonia right lung base. ACT 112: Negative or not required by law. Electronically signed by: Andres Hutchinson M.D. 05/04/2025 11:43 AM Hip/Pelvis X-Ray 05/04/25 11:01 XR hip RT 2V w pelvis CLINICAL HISTORY: Right hip pain, sepsis. COMPARISON: Pelvis radiograph January 04, 2023. CT of the abdomen and pelvis April 26, 2025. FINDINGS: The sacroiliac joints and symphysis pubis are intact. There are no fractures within the pelvis or hips. No suspicious osseous lesions are identifi ed. There is mild to moderate osteoarthritis of both hips. IMPRESSION: 1. No fractures within the pelvis or hips. 2. Mild to moderate bilateral hip osteoarthritis. ACT 112: Negative or not required by law. Electronically signed by: Silver Carroll M.D. 05/04/2025 11:44 AM Abdomen/Pelvis CT 05/04/25 13:00 CT abdomen pelvis wo/w con HISTORY: 79 years-old Male right hip pain, posterior lateral acute pain of the pelvis and right hip without reported trauma COMPARISON: Right hip CT of same day, CT abdomen and pelvis 04/26/2025 TECHNIQUE: Multiple axial CT images of the pelvis were obtained with and without IV contrast. A dose lowering technique was used consistent with the principals of ALARA. FINDINGS: Cardiomegaly with prosthetic aortic valve. Sternotomy wires are present. Fusiform dilation of the ascending thoracic aorta, 4 cm. Small pleural effusions with mild dependent bibasilar atelectasis. No pneumatosis or pneumoperitoneum. Hepatic steatosis. Patency of the hepatic and portal veins. Unremarkable spleen, gallbladder and adrenal glands. 8 mm cystic focus of the pancreas image 1:15 series 9, possibly a sidebranch IPMN. No hydronephrosis. Small cyst of the posterior aspect inferior pole right kidney. No renal or ureteral calculi or hydronephrosis. No enhancing renal mass lesions. Prostatomegaly with heterogeneous enhancement. Urinary bladder wall thickening suggestive of chronic outlet obstruction. Atherosclerosis of the aorta without aneurysm. Borderline-enlarged periportal lymph nodes measure up to 11 mm, favored to be benign. Mild distal esophageal wall thickening with subcentimeter lymph nodes and trace adjacent inflammatory stranding. Colonic diverticulosis without acute diverticulitis. Mild to moderate colonic fecal retention. No acute fracture. IMPRESSION: 1. Stable exam compared to the study from 04/26/2025. 2. No acute intra-abdominal or intrapelvic abnormality. 3. Enlarged heterogeneously enhancing prostate. Correlate with PSA. 4. Hepatic steatosis. 5. Small pleural effusions. 6. Additional findings as above. ACT 112: Negative or not required by law. The above report was generated using voice recognition software. It may contain grammatical, syntax or spelling errors. Electronically signed by: Kartik Simons M.D. 05/04/2025 3:[address] 05/04/25 13:00 CT hip RT wo/w con CLINICAL HISTORY: Right hip pain. COMPARISON STUDY: Right hip radiographs performed earlier today. CT of the abdomen and pelvis April 26, 2025. TECHNIQUE: Axial images of the right hip were obtained before and after intravenous administration of 118 cc Optiray 320 IV. Coronal and sagittal reformats were viewed. A dose lowering technique was utilized adhering to the principles of ALARA. FINDINGS: Incidental note is made of moderate enlargement of the prostate. The prostate measures 5.7 cm in transverse diameter. The bladder is distended. These findings are better depicted on the abdomen and pelvis CT which will be reported separately. Alignment of the right hip is anatomic. There is no fracture. No osseous lesions are present. There is moderate posterior hip joint space narrowing. There is associated osteophytosis. There is no evidence for avascular necrosis of the right femoral head. No fluid collection is identified. Minimal s ubcutaneous stranding of the lateral right thigh is unchanged. There is no right inguinal lymphadenopathy. IMPRESSION: 1. No fractures within the right hip. 2. Moderate right hip osteoarthritis. ACT 112: Negative or not required by law. Electronically signed by: Silver Carroll M.D. 05/04/2025 3:15 PM Head CTA 05/04/25 13:01 CT angio head w con CLINICAL HISTORY: 79 years-old Male with syncope, hx of brain aneursym. Acute syncope COMPARISON STUDY: Head CT 05/02/2025, CTA head from outside facility 04/26/2011. TECHNIQUE: Following the IV administration of 118 cc of Optiray, CT angiogram of the brain was performed from the skull base to the vertex. Images are reviewed in the axial, sagittal, and coronal planes. 3-D MIPS images are created and assessed. IV contrast was administered without complication. All measurements were obtained according to NASCET criteria. A dose lowering technique was utilized adhering to the principles of ALARA. CT DOSE: 3527.09 mGy.cm FINDINGS: Involutional changes with probable chronic microvascular ischemic disease.Postoperative changes of prior right frontal craniotomy. Coastal thickening of the paranasal sinuses. Prior bilateral lens repair. 3.2 x 2.4 cm left parietal scalp hematoma has increased in size from prior. Calcifications of the central vandana are again seen. CT ANGIOGRAM OF THE BRAIN: The imaged bilateral internal carotid arteries are patent. Partially imaged arterial stent within the distal cervical segment right ICA. The bilateral anterior and middle cerebral arteries are also patent. There is a 4 cm segment of the T1 segment right posterior cerebral artery demonstrating high-grade stenosis, image 114 series 7 which has worsened from prior. The left posterior cerebral artery is widely patent. Aneurysmal clipping noted involving the anterior communicating artery. Dural sinuses appear patent. IMPRESSION: 1. Increased size of the left parietal scalp hematoma. 2. High-grade stenosis of the right posterior cerebral artery. 3. 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 ACT 112: Negative or not required by law. The above report was generated using voice recognition software. It may contain grammatical, syntax or spelling errors. Electronically signed by: Kartik Simons M.D. 05/04/2025 3:24 PM PG Care Time/CCT Total # of Minutes Spent Total Time Spent with Patient: Total time spent is greater than 50% in coordination of care (as documented) at patient's floor/unit and/or counseling patient: Coding Level of Care Code 00504 SUB INP/OBS CARE 08/01MIN Diagnoses Bacteremia due to Enterococcus R78.81; B95.2 UTI (urinary tract infection) N39.0 Right hip pain M25.551 Time Spent (min) 25
[2025-05-06] MEDS ORDERED: EPINEPHrine INJ 1 MG/ML AMP IM PRN (12:16)
[2025-05-06] MEDS ORDERED: diphenhydrAMINE 50 MG/ML VIAL IV PRN ×2 (12:16)
[2025-05-06] MEDS ORDERED: ANAPHYLAXIS KIT ONE (12:30)
--- NOTE | 2025-05-06 13:40 | Gastrointestinal Consultation ---
Date of Consultation May 06, 2025 Assessment & Plan (1) Bacteremia due to Enterococcus: Will coordinate with hospitalist regarding the possibility of a colonoscopy tomorrow due to enterococcus faecalis bacteremia. Patient does take Plavix & Eliquis so will address Eliquis with primary team. Supervising Physician Co-Signing Physician Notes Patient examined at the bedside. Had a fall at home. Had significant blood loss related to that fall a week or so ago. Came in because of feeling somewhat weak. notes that he was having fevers and chills. Patient is growing Enterococcus faecalis in the bloodstream. This has a significant association with colon pathology polyps and/or neoplasia.. Patient's last colonoscopy was 12 years ago. Significant comorbidities including problem affective pacemaker. Syncopal epi sode. And biased prosthetic aortic valve with moderate to severe mitral stenosis no definite vegetations on the valve. RORO performed 05/05/2025 said to show mild congestive heart failure. Patient is on Eliquis and Plavix peers to be only getting Plavix at this time. Patient lying comfortably in bed this not appear acutely short of breath or dyspneic. Discussed colonoscopy. He is agreeable. Will tentatively try some GoLytely. Patient's been advised if he feels any shortness of breath does not feel well during his preparation he can stop. He can sip slowly over the evening and stop drinking around 9 AM tomorrow morning. Tentative colonoscopy if he tolerates prep tomorrow. He can remain on Plavix for the procedure. Typically about Eliquis held for 24 to 48 hours. History of Present Illness Reason for Consultation: Enterococcus faecalis Attending Physician: Gris Marmolejo DO History of Present Illness Patient is a 79 yo male with extensive PMH currently hospitalized with bacteremia. Cultures have grown enterococcus faecalis. GI has been consulted for a colonoscopy due to increased risk of colon cancer associated. Patient denies any changes to his bowel habits prior to admission. He denies rectal bleeding. He denies diarrhea. He denies abdominal pain. He does not have any first degree relatives with colorectal cancer. He estimates his last colonoscopy was >10 years ago. He is on Plavix and Eliquis. While hospitalized, it appears the source of his infection is felt to be the pacemaker lead. He did have a RORO that ruled out vegetations on his valves. He does have a significant history of valvular heart disease. CT abdomen/pelvis: FINDINGS: Cardiomegaly with prosthetic aortic valve. Sternotomy wires are present. Fusiform dilation of the ascending thoracic aorta, 4 cm. Small pleural effusions with mild dependent bibasilar atelectasis. No pneumatosis or pneumoperitoneum. Hepatic steatosis. Patency of the hepatic and portal veins. Unremarkable spleen, gallbladder and adrenal glands. 8 mm cystic focus of the pancreas image 1:15 series 9, possibly a sidebranch IPMN. No hydronephrosis. Small cyst of the posterior aspect inferior pole right kidney. No renal or ureteral calculi or hydronephrosis. No enhancing renal mass lesions. Prostatomegaly with heterogeneous enhancement. Urinary bladder wall thickening suggestive of chronic outlet obstruction. Atherosclerosis of the aorta without aneurysm. Borderline-enlarged periportal lymph nodes measure up to 11 mm, favored to be benign. Mild distal esophageal wall thickening with subcentimeter lymph nodes and trace adjacent inflammatory stranding. Colonic diverticulosis without acute diverticulitis. Mild to moderate colonic fecal retention. No acute fracture. IMPRESSION: 1. Stable exam compared to the study from 04/26/2025. 2. No acute intra-abdominal or intrapelvic abnormality. 3. Enlarged heterogeneously enhancing prostate. Correlate with PSA. 4. Hepatic steatosis. 5. Small pleural effusions. 6. Additional findings as above. Allergies Allergy/AdvReac Type Severity Reaction Status Date / Time Penicillins Allergy Intermediate RASH Verified 04/20/25 13:29 atorvastatin AdvReac Intermediate Muscle Pain Verified 04/20/25 13:29 rosuvastatin [From Crestor] AdvReac Intermediate Muscle Pain Verified 04/20/25 13:29 Home Medications Medication Instructions Recorded Confirmed Type cyanocobalamin (vitamin B-12) 1,000 mcg PO QAM 11/08/20 05/04/25 History 1,000 mcg tablet (Vitamin B-12) pravastatin 10 mg tablet 10 mg PO DAILY #90 tabs 06/19/24 05/04/25 Rx clopidogrel 75 mg tablet 75 mg PO QAM 12/16/24 05/04/25 History metoprolol succinate 100 mg 100 mg PO BID #180 tabs 01/27/25 05/04/25 Rx tablet,extended release 24 hr Taltz Autoinjector 80 mg/mL 80 mg subcut Q28D #1 mL 02/18/25 05/04/25 Rx subcutaneous (ixekizumab) apixaban 5 mg tablet (Eliquis) 5 mg PO BID #180 tabs 02/23/25 05/04/25 Rx albuterol sulfate 90 mcg/actuation 2 puff inhalation Q4 PRN Shortness 04/12/25 05/04/25 History aerosol inhaler Of Breath Or Wheezing amlodipine 10 mg tablet 10 mg PO QAM 04/26/25 05/04/25 History fluticasone 250 mcg-salmeterol 50 1 inh inhalation BID #60 ea 04/29/25 05/04/25 Rx mcg/dose blistr powdr for inhalation (Wixela Inhub) ciprofloxacin HCl 500 mg tablet 500 mg PO Q12H #20 tabs 05/02/25 05/04/25 Rx Patient History Medical History Episode of syncope Chronic anticoagulation Right shoulder pain Laceration of scalp Thoracic aortic aneurysm mild aneurysmal dilatation of the visualized ascending thoracic aorta which measures up to 4.1 cm per 01/04/23 A/P CT scan Carotid stenosis, right 80% stenosis of right ICA Dizzy spells Intermittent x two years per vascular records Psoriatic arthritis Follows with rheum Cardiac pacemaker s/p complete heart block Jul 2011- DDDR pacemaker Mitral valve insufficiency s/p Jordyn-Camarena mitral valve ring, #28, July 2011 Benign prostatic hyperplasia with urinary obstruction and other lower urinary tract symptoms Asthma Nephrolithiasis passed on own Paroxysmal atrial fibrillation Dx 2009> pacer/ Xarelto Brain aneurysm - with repair> [facility] > was in hospital for 12 weeks > 2009 - stable findings following right frontal craniotomy per 10/[address] - CT angiogram 02/03/2013- post surgical changes - no longer needs to follow with neuro per PCP office visit 11/2024 Left hand weakness 2022- PCP recommended PT Rheum ordered EMG testing at 11/2024 appt GERD (gastroesophageal reflux disease) hx> none at present NSVT (nonsustained ventricular tachycardia) Migratory polyarthritis Abnormal liver enzymes stable x years per PCP records; daily alcohol use CHF (congestive heart failure) follows with Dr. Dinero EF 60-65% on 04/2024 ECHO CAD (coronary artery disease), ekl[place]na coronary artery - non interveneable RCA, July 2011 - 30 to 40% LAD and OM 3, small nondominant RCA with moderate disease, April 2018 Aortic stenosis severe secondary to bicuspid AV Jordyn-Camarena pericardial AVR #21 (2012) Later TAVR 2018 Surgical History History of cardiac cath 2018 no stents History of colonoscopy Hx of inguinal hernia repair Hx of vasectomy History of cataract surgery bilat History of mitral valve repair 2011 History of tonsillectomy and adenoidectomy History of cerebral aneurysm repair 2009 History of craniotomy 2009 (brain aneurysm) History of heart valve replacement 2012= AVR > [place] Later TAVR in 2018 in [place] Family History Father Pancreatic malignant neoplasm Malignant Pancreatic Neoplasm Colorectal cancer Denies family history of Ovarian cancer Prostate cancer Myocardial infarction Breast cancer Social History Smoking Status: Never smoker Second Hand Exposure: No; Do You Dip or Chew Tobacco: No; Hx Alcohol Use: Yes Alcohol type: wine and hard liquor Hx Substance Use: No Preferred Language: Belizean Communication Ability: Effective Visual Impairment: No Limitations Hearing Ability: Normal Property Custodian Required: No Beliefs That Will Affect Care: None marital status: Current Living Situation: Spouse current occupational status: retired 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, 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 [employer] Feels Safe at Home: Yes Childhood Exposure to Second-Hand Smoke: Yes Dental Care, Regularly: Yes Physical Activity Frequency: 5-6 Times per Week Physical Activity Frequency Comment: walking 3-4 miles Seatbelt Use: always Sunscreen Use: No Assistive Devices: Cane, Walker and Wheelchair Review of Systems Constitutional: no fever and no chills Respiratory: no cough and no dyspnea Cardiovascular: no chest pain Gastrointestinal: no abdominal pain, no change in bowel habits, no blood in stools and no melena Physical Exam Constitutional: well developed Respiratory: normal respiratory effort Gastrointestinal (Abdomen): normal bowel sounds, soft, nontender, no hepatosplenomegaly Psychiatric: Orientation: alert and oriented x 3 Results & Data Vital Signs (Past 12 Hours) Vital Signs Temp Pulse Pulse Resp BP Pulse Ox O2 Del Method 05/06/25 12:28 37.2 C 70 18 146/80 H 96 Room Air 05/06/25 07:51 37.2 C 71 16 150/71 H 93 Room Air 05/06/25 07:38 66 05/06/25 03:58 37.3 C 69 20 133/68 96 Room Air PG Care Time/CCT Total # of Minutes Spent Total Time Spent with Patient: Total time spent is greater than 50% in coordination of care (as documented) at patient's floor/unit and/or counseling patient: Coding Level of Care Code 02954 INT INP/OBS CARE 3/75MIN Diagnoses Bacteremia due to Enterococcus R78.81; B95.2
[2025-05-06] MEDS: AMOXICILLIN PO ONE ×2 (13:43→15:04)
[2025-05-06] MEDS: [UNRECOGNIZED DRUG - OTHER] PO ONE (13:43)
--- NOTE | 2025-05-06 14:57 | Infectious Disease Progress Nt ---
Date of Service May 06, 2025 Assessment & Plan (1) Bacteremia due to Enterococcus: (2) UTI (urinary tract infection): (3) History of aortic valve replacement: Plan ID Problem List: # E. faecalis bacteremia, pacemaker lead infection, presumed PVE of the aortic valve # UCx + E. faecalis, possible UTI # History of bioprosthetic AV replacement # History of mitral valve annuloplasty # History of sick sinus syndrome s/p pacemaker # History of psoriatic arthritis on Taltz (ixekizumab) # Reported antibiotic allergy: penicillins (rash) Impression: Ella Mccracken is a 79-year-old man with history of history of s/p aortic valve replacement 2011, mitral valve annuloplasty, SSS s/p PPM 2011, Afib on Eliquis, CAD s/p CABG, brain aneurysm c/b SDH s/p clipping 2009, psoriatic arthritis on Taltz (ixekizumab), recent admission 04/26-04/27/25 with syncope, ED visit on 05/02/25, who presents to [facility] on 05/04/25 d/t BCx from 05/02 showing E. faecalis bacteremia. ID is consulted for E. faecalis bacteremia. The patient was recently admitted from 04/26-04/27 with fall and syncope episode with head injury. He was found to have a small scalp hematoma. His syncope was felt to be vasovagal. He had his PPM interrogated without issue. The patient was seen in the ED on 05/02/25 for increasing weakness since his hospitalization and had some dysuria. At the time, he was afebrile, WBC 9.48 Hgb 9.5 plt 215 Cr 0.81 LFTs wnl. UA with 21-50 WBCs, 3-5 RBcs, 2+ bacteria, neg nitrite, 1+ LE. He was diagnosed with UTI and discharged to complete a course of ciprofloxacin. His BCx from 05/02 are growing E. faecalis. He is also reporting R hip pain and dizziness. He still has a small amount of dysuria. 05/04 TTE without reported mass/vegetation; abnormal gradient for bioprosthetic AV, severe , moderate mitral annular calcification, severe MS, elevated RVSP, borderline aortic root dilatation. 05/[address] without fracture, showing moderate R hip OA. 05/04 head CTA showing increased size of the L parietal hematoma from prior; high-grade stenosis of the R LAB ENGINEER, aneurysmal clips of the HERNESTO. Discussion Pt presenting with E. faecalis bacteremia, in the setting of recent syncope (no BCx obtained that admission), and also reporting dysuria, dizziness, and R hip pain. Now confirmed on RORO to have pacemaker lead infection, and although not seen on RORO presumed to have PVE of the aortic valve. 05/04 TTE without reported mass/vegetation; abnormal gradient for bioprosthetic AV, severe , moderate mitral annular calcification, severe MS, elevated RVSP, borderline aortic root dilatation. Given abnormal TTE and history of AVR/PPM, recommended RORO. 05/05 RORO showing small mobile mass on a pacemaker lead in the right atrium; bioprosthetic aortic valve without obvious masses or vegetations but image quality compromised by the structure of the valve; moderate-severe mitral stenosis, calcified mitral annulus without e/o vegetation. Would discuss with cardiology to see whether PPM removal is an option. BCx from 05/02 positive; repeat BCx from 05/04 remain positive as well. Recommend repeating BCx q48h until clear. Would continue to monitor closely for any new/worsening focal complaints (e.g., joint pain, back pain) with low threshold to image/evaluate as possible metastatic infection. If ongoing pelvic/hip pain, would consider MRI. The original source of the E. faecalis is unclear; UA with pyuria and pt with dysuria, and UCx with E. faecalis as well; CT A/P without e/o ascending UTI but does show enlarged enhancing prostate. Pt has not had a C-scope for >10 years, tentatively planning for inpatient C-scope on 05/07. Would continue IV daptomycin. Pt with history of penicillins (rash during childhood, does not think it required hospitalization). Discussed with ID pharmacist and Dr. Ross of allergy, pt receiving a test dose of amoxicillin on 05/06 as a graded challenge. If tolerating the amoxicillin, will change to IV ampicillin, along with ceftriaxone, for synergy. Currently anticipate at least a 6-week course of IV abx, pending BCx clearance and cardiology evaluation for possible PPM removal. If PPM/lead are not able to be removed, then will need to consider indefinite suppressive therapy after completion of IV abx. Recommendations: - Continue daptomycin 750 mg IV q24h (10 mg/kg) for E. faecalis bacteremia. If tolerating amoxicillin test dose today, then will change to ampicillin 2g IV q4h and ceftriaxone 2g IV q12h for E. faecalis PPM infection and presumed PVE. - Currently anticipate at least a 6-week course, pending BCx clearance and cardiology evaluation for possible PPM removal. If PPM/lead are not able to be removed, then will need to consider indefinite suppressive therapy after completion of IV abx. - Would discuss with cardiology to see whether PPM removal is an option. Dr. Marmolejo attempting to get in touch with pts outpatient international trade manager Dr. Dinero - Repeat BCx ordered for 05/05 and 05/06 to establish clearance. Recommend repeat BCx q48h to evaluate for clearance - Continue to monitor closely for any new/worsening focal complaints (e.g., joint pain, back pain) with low threshold to image/evaluate as possible metastatic infection - If ongoing back or pelvic/hip pain, would consider MRI ID will continue to follow. Angela Arias MD, MHS Infectious Diseases [facility] ID Connect direct line: [phone] Admission and Anticipated Discharge Date Admission Date: May 04, 2025 Subjective Subsequent visit was provided via telemedicine using two-way real-time interactive telecommunication between the patient and the telemedicine provider. For the duration of the visit, the provider was performing the assessment from a different facility than the patient. This includesuse of bluetooth stethoscope forauscultationperformed by the telepresenter that the telemedicine provider can hear if described in the physical exam. Orthopedic Brace Maker contact information: Please call [facility] Call Center [phone]. (Phone Number For Physician Use Only) After establishing a telemedicine visit, patient was: Patient was verified with two unique identifiers, Patient/authorized rep acknowledged consent and understanding and Gave permission to continue telehealth session Time Spent with Patient: Subsequent => 35 min - Afebrile, WBC 7.28 - Tentative plan for colonoscopy tomorrow - Pt has lower back pain while walking, but no pain at rest - 05/05 BCx pending - Received a test dose of amoxicillin today Physical Exam Physical Exam: Exam obtained with assistance of an in-person telepresenter General: Well-appearing, no acute distress HEENT: Conjunctivae non-injected, sclerae anicteric, MMM, OP clear. Resp: Respirations nonlabored. Chest: PPM in place, area around the PPM seems slightly puffy Back: No tenderness to palpation along spine (the lower back pain he reports is only when walking) Ext: No joint warmth or effusions noted. Skin: No rashes or lesions. Neuro: Alert & interactive. Grossly non-focal. Psych: Pleasant, appropriate. Results & Data Vital Signs (Past 12 Hours) Vital Signs Temp Pulse Pulse Resp BP Pulse Ox Pulse Ox 05/06/25 14:23 75 05/06/25 13:35 37.0 C 75 18 139/76 97 05/06/25 12:28 37.2 C 70 18 146/80 H 96 05/06/25 11:00 97 05/06/25 07:51 37.2 C 71 16 150/71 H 93 05/06/25 07:38 66 05/06/25 03:58 37.3 C 69 20 133/68 96 O2 Del Method O2 Del Method 05/06/25 14:23 05/06/25 13:35 Room Air 05/06/25 12:28 Room Air 05/06/25 11:00 Room Air 05/06/25 07:51 Room Air 05/06/25 07:38 05/06/25 03:58 Room Air Laboratory Results Diagnostics: 05/05 RORO Small mobile mass on a pacemaker lead in the right atrium; bioprosthetic aortic valve without obvious masses or vegetations but image quality compromised by the structure of the valve; moderate-severe mitral stenosis, calcified mitral annulus without e/o vegetation 05/04 head CTA 1. Increased size of the left parietal scalp hematoma. 2. High-grade stenosis of the right posterior cerebral artery. 3. 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 05/[address] 1. No fractures within the right hip. 2. Moderate right hip osteoarthritis. 05/04 TTE without reported mass/vegetation; abnormal gradient for bioprosthetic AV, severe , moderate mitral annular calcification, severe MS, elevated RVSP, borderline aortic root dilatation 05/04 CT A/P w/ contrast 1. Stable exam compared to the study from 04/26/2025. 2. No acute intra-abdominal or intrapelvic abnormality. 3. Enlarged heterogeneously enhancing prostate. Correlate with PSA. 4. Hepatic steatosis. 5. Small pleural effusions. 6. Additional findings as above. 05/04 CT A/P with contrast without acute intraabdominal abnormality; enlarged enhancing prostate. Micro Data: 05/06 BCx x2: PEND 05/05 BCx x2: PEND 05/04 BCx x2: E. faecalis in 1/2 sets (2/4 bottles) 05/02 BCx x2: E. faecalis in 1/2 sets (1/4 bottles) 05/02 UCx: E. faecalis Antibiotic Summary: daptomycin (05/04 present) prior amoxicillin (05/06) vancomycin (05/04)
[2025-05-06] MEDS: [UNRECOGNIZED DRUG - OTHER] PO ONE (15:04)
[2025-05-06] MEDS: AMPICILLIN 2,000 MG in SODIUM CHLOR 0.9% MINI-B 100 ML IV SCH (17:19)
[2025-05-06] MEDS: cefTRIAXone SODIUM 2,000 MG/50 ML BAG IV SCH (18:16)
[2025-05-06] MEDS: LAVAGE SOLUTION 4000ML PO SCH (20:10)
[2025-05-07 06:37] LABS: Hematocrit (blood only) 25.1 % (42.0-52.0); Hemoglobin 8.3 g/dl (14.0-18.0); Mean Corpuscular Hemoglobin 31.9 pg (25.0-34.0); Mean Corpuscular Volume 96.5 fL (80.0-100.0); Platelet Count 171 K/uL (130-400); RDW Standard Deviation 51.7 fL (36.4-46.3); Red Blood Count 2.60 M/uL (4.70-6.10); White Blood Count 4.03 K/ul (4.8-10.8)
[2025-05-07 07:12] LABS: Alanine Aminotransferase 26.0 U/L (7-52); Albumin Globulin Ratio 1.1 (0.9-2); Albumin Level 3.3 gm/dl (3.4-5.0); Alkaline Phosphatase 50.0 U/L (34-104); Anion Gap 9.0 (3-11); Bilirubin,Total 0.5 mg/dl (0.2-1.0); Blood Urea Nitrogen 13.0 mg/dl (6-23); Calcium 8.3 mg/dl (8.6-10.3); Carbon Dioxide 23.0 mmol/L (21-32); Chloride 102.0 mmol/L (98-107); Creatinine Clr Calc Pharmacy 90.7 ml/min; Globulin 3.1 gm/dl (2.5-4.0); Glucose 104.0 mg/dl (70-99(Fasting)); Potassium 3.7 mmol/L (3.5-5.1); Sodium 134.0 mmol/L (136-145); Total Protein 6.4 gm/dl (6.0-8.3)
--- NOTE | 2025-05-07 09:06 | History & Physical Bridge Note ---
Date of Service May 07, 2025 History & Physical Bridge Note I have examined the patient, reviewed the History & Physical and in the interval since the performance of the History & Physical I have noted the following changes of clinical significance: no changes noted Patient completed the majority of his bowel preparation and is having clear- yellow liquid stools without formed stool or blood. Keep NPO & proceed with colonoscopy today. Supervising Physician Co-Signing Physician Notes Tolerated prep. Colonoscopy to evaluate for potential colon neoplasia in this patient with Enterococcus faecalis bacteremia
[2025-05-07] MEDS ORDERED: KETOROLAC TROMETHAMINE 15 MG/ML VIAL IV PRN (09:47)
--- NOTE | 2025-05-07 09:53 | Orthopedic Consultation ---
Date of Consultation May 07, 2025 Assessment & Plan (1) Trochanteric bursitis of right hip: I advised the patient that his condition is consistent with trochanteric bursitis. Due to his GI issues that he is having I recommended IV Toradol. We will have him scheduled for an appointment in our office in 2 weeks to reevaluate. If he is still symptomatic we may consider a right hip trochanteric bursa corticosteroid injection. Patient is very agreeable to this. I also advised him that he does have some mild arthritis in the right hip but his clinical exam is not indicative that that this is his current issue. Supervising Physician Co-Signing Physician Notes I, Dr. Davidson, saw and examined the patient and discussed the management with my PA. I reviewed my PAs note and agree with the documented findings and the plan of care I developed. PE: Neurovascularly intact. +TTP greater trochanter. - log roll hip, pain laterally Good ROM hip -HUNG -FADIR + Lucina's Reviewed studies, no evidence of effusion or fx or dislocation. Noted R hip OA PLAN: No evidence of hip infection. Pain secondarily to Trochanteric bursitis and hip OA WBAT RLE RICE Continue pain control per primary service PT/OT D/C planning F/U as outpatient in 2 weeks after d/c, T/C Trochanteric bursa injection. Will sign off. Please recall if any ortho issues. History of Present Illness Reason for Consultation: Right hip pain Requesting Physician: Sumeet Davidson MD Attending Physician: Gris Marmolejo DO History of Present Illness This 79-year-old male is seen in consultation for right hip pain that developed while he was on his walk about 3 days ago. Patient states that he usually walks between 2 and 5 miles each day. He states that he was about 20 minutes into his walk and noticed pain over the lateral aspect of his right hip. States he has never seen anyone for hip issues in the past. He states that he does not use any type of anti-inflammatory agents. He was admitted to the hospital for bacteremia and gastrointestinal issues and told the hospitalist service that he was also having the hip pain and we are consulted to evaluate. Allergies Allergy/AdvReac Type Severity Reaction Status Date / Time atorvastatin AdvReac Intermediate Muscle Pain Verified 04/20/25 13:29 rosuvastatin [From Crestor] AdvReac Intermediate Muscle Pain Verified 04/20/25 13:29 Home Medications Medication Instructions Recorded Confirmed Type cyanocobalamin (vitamin B-12) 1,000 mcg PO QAM 11/08/20 05/04/25 History 1,000 mcg tablet (Vitamin B-12) pravastatin 10 mg tablet 10 mg PO DAILY #90 tabs 06/19/24 05/04/25 Rx clopidogrel 75 mg tablet 75 mg PO QAM 12/16/24 05/04/25 History metoprolol succinate 100 mg 100 mg PO BID #180 tabs 01/27/25 05/04/25 Rx tablet,extended release 24 hr Taltz Autoinjector 80 mg/mL 80 mg subcut Q28D #1 mL 02/18/25 05/04/25 Rx subcutaneous (ixekizumab) apixaban 5 mg tablet (Eliquis) 5 mg PO BID #180 tabs 02/23/25 05/04/25 Rx albuterol sulfate 90 mcg/actuation 2 puff inhalation Q4 PRN Shortness 04/12/25 05/04/25 History aerosol inhaler Of Breath Or Wheezing amlodipine 10 mg tablet 10 mg PO QAM 04/26/25 05/04/25 History fluticasone 250 mcg-salmeterol 50 1 inh inhalation BID #60 ea 04/29/25 05/04/25 Rx mcg/dose blistr powdr for inhalation (Wixela Inhub) ciprofloxacin HCl 500 mg tablet 500 mg PO Q12H #20 tabs 05/02/25 05/04/25 Rx Patient History Medical History Episode of syncope Chronic anticoagulation Right shoulder pain Laceration of scalp Thoracic aortic aneurysm mild aneurysmal dilatation of the visualized ascending thoracic aorta which measures up to 4.1 cm per 01/04/23 A/P CT scan Carotid stenosis, right 80% stenosis of right ICA Dizzy spells Intermittent x two years per vascular records Psoriatic arthritis Follows with rheum Cardiac pacemaker s/p complete heart block Jul 2011- DDDR pacemaker Mitral valve insufficiency s/p Jordyn-Camarena mitral valve ring, #28, July 2011 Benign prostatic hyperplasia with urinary obstruction and other lower urinary tract symptoms Asthma Nephrolithiasis passed on own Paroxysmal atrial fibrillation Dx 2009> pacer/ Xarelto Brain aneurysm - with repair> [facility] > was in hospital for 12 weeks > 2009 - stable findings following right frontal craniotomy per 10/[address] - CT angiogram 02/03/2013- post surgical changes - no longer needs to follow with neuro per PCP office visit 11/2024 Left hand weakness 2022- PCP recommended PT Rheum ordered EMG testing at 11/2024 appt GERD (gastroesophageal reflux disease) hx> none at present NSVT (nonsustained ventricular tachycardia) Migratory polyarthritis Abnormal liver enzymes stable x years per PCP records; daily alcohol use CHF (congestive heart failure) follows with Dr. Dinero EF 60-65% on 04/2024 ECHO CAD (coronary artery disease), [place] coronary artery - non interveneable RCA, July 2011 - 30 to 40% LAD and OM 3, small nondominant RCA with moderate disease, April 2018 Aortic stenosis severe secondary to bicuspid AV Jordyn-Camarena pericardial AVR #21 (2011) Later TAVR 2018 Surgical History History of cardiac cath 2018 no stents History of colonoscopy Hx of inguinal hernia repair Hx of vasectomy History of cataract surgery bilat History of mitral valve repair 2011 History of tonsillectomy and adenoidectomy History of cerebral aneurysm repair 2009 History of craniotomy 2009 (brain aneurysm) History of heart valve replacement 2012= AVR > [place] Later TAVR in 2018 in [place] Family History Father Pancreatic malignant neoplasm Malignant Pancreatic Neoplasm Colorectal cancer Denies family history of Ovarian cancer Prostate cancer Myocardial infarction Breast cancer Social History Smoking Status: Never smoker Second Hand Exposure: No; Do You Dip or Chew Tobacco: No; Hx Alcohol Use: Yes Alcohol type: wine and hard liquor Hx Substance Use: No Preferred Language: Lao Communication Ability: Effective Visual Impairment: No Limitations Hearing Ability: Normal Plant Physiology Teacher Required: No Beliefs That Will Affect Care: None marital status: Current Living Situation: Spouse current occupational status: retired 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 He is able to easily perform an active straight leg raise test and actively dorsi and plantarflex foot against resistance without discomfort. He tolerates passive hip flexion to 120 degrees without pain. He has no pain with passive internal rotation to 15 degrees and external rotation to 70 degrees. He has no tenderness in the groin. However, he is exquisitely tender to palpation over the greater trochanter especially when his knee is flexed to 90 degrees. His peripheral pulses are 2+. He is neurovascularly intact in the right lower extremity and able to detect light sensation to touch over the pads of all digits. Results & Data Vital Signs (Past 12 Hours) Vital Signs Temp Pulse Pulse Resp BP Pulse Ox O2 Del Method 05/07/25 08:44 36.8 C 70 18 149/73 H 95 Room Air 05/07/25 07:17 70 05/07/25 03:25 36.3 C L 72 20 171/73 H 95 Room Air 05/06/25 23:02 36.4 C L 69 20 172/74 H 95 Room Air 05/06/25 21:54 70 Diagnostic Findings Laboratory Results WBC 4.03 K/ul (4.8-10.8) L 05/07/25 06:01 RBC 2.60 M/uL (4.70-6.10) L 05/07/25 06:01 Hgb 8.3 g/dl (14.0-18.0) L 05/07/25 06:01 Hct 25.1 % (42.0-52.0) L 05/07/25 06:01 MCV 96.5 fL (80.0-100.0) 05/07/25 06:01 MCH 31.9 pg (25.0-34.0) 05/07/25 06:01 MCHC 33.1 g/dL (32.0-36.0) 05/07/25 06:01 RDW Std Deviation 51.7 fL (36.4-46.3) H 05/07/25 06:01 RDW Coeff of Andres 14.6 % (11.5-14.5) H 05/07/25 06:01 Plt Count 171 K/uL (130-400) 05/07/25 06:01 MPV 10.9 fL (9.4-12.4) 05/07/25 06:01 Immature Gran % (Auto) 0.8 % 05/04/25 11:23 Neut % (Auto) 75.1 % 05/04/25 11:23 Lymph % (Auto) 6.4 % 05/04/25 11:23 [place] % (Auto) 17.3 % 05/04/25 11:23 Eos % (Auto) 0.2 % 05/04/25 11:23 Baso % (Auto) 0.2 % 05/04/25 11:23 Neut # (Auto) 3.74 K/uL (1.40-6.50) 05/04/25 11:23 Lymph # (Auto) 0.32 K/uL (1.20-3.40) L 05/04/25 11:23 [place] # (Auto) 0.86 K/uL (0.11-0.59) H 05/04/25 11:23 Eos # (Auto) 0.01 K/uL (0.00-0.50) 05/04/25 11:23 Baso # (Auto) 0.01 K/uL (0.00-0.20) 05/04/25 11:23 Immature Gran # (Auto) 0.04 K/uL (0.01-0.20) 05/04/25 11:23 VBG pH 7.37 (7.36-7.41) 05/04/25 11:23 VBG pCO2 37 mmHg (38-50) L 05/04/25 11:23 VBG pO2 36 mmHg 05/04/25 11:23 VBG HCO3 21 mmol/L 05/04/25 11:23 VBG O2 Saturation < 60.0 % 05/04/25 11:23 VBG Base Excess -3.5 mEq/L 05/04/25 11:23 Sodium 134 mmol/L (136-145) L 05/07/25 06:01 Potassium 3.7 mmol/L (3.5-5.1) 05/07/25 06:01 Chloride 102 mmol/L (98-107) 05/07/25 06:01 Carbon Dioxide 23 mmol/L (21-32) 05/07/25 06:01 Anion Gap 9 (3-11) 05/07/25 06:01 BUN 13 mg/dl (6-23) 05/07/25 06:01 Creatinine 0.66 mg/dl (0.6-1.4) 05/07/25 06:01 Est Cr Clr Drug Dosing 90.7 ml/min 05/07/25 06:01 eGFR 96.60 05/07/25 06:01 BUN/Creatinine Ratio 19.7 (10-20) 05/07/25 06:01 Glucose 104 mg/dl (70-99(Fasting)) H 05/07/25 06:01 Lactate 1.7 mmol/L (0.4-2.0) 05/04/25 11:23 Calcium 8.3 mg/dl (8.6-10.3) L 05/07/25 06:01 Magnesium 2.0 mg/dl (1.7-2.4) 05/04/25 11:23 Total Bilirubin 0.5 mg/dl (0.2-1.0) D 05/07/25 06:01 Direct Bilirubin 0.2 mg/dl (0-0.2) 05/04/25 11:23 AST 22 U/L (13-39) 05/07/25 06:01 ALT 26 U/L (7-52) 05/07/25 06:01 Alkaline Phosphatase 50 U/L (34-104) 05/07/25 06:01 Total Creatine Kinase 124 U/L (30-223) 05/05/25 06:41 Troponin I High Sens 17.6 pg/ml (0-20) 05/04/25 11:23 Total Protein 6.4 gm/dl (6.0-8.3) 05/07/25 06:01 Albumin 3.3 gm/dl (3.4-5.0) L 05/07/25 06:01 Globulin 3.1 gm/dl (2.5-4.0) 05/07/25 06:01 Albumin/Globulin Ratio 1.1 (0.9-2) 05/07/25 06:01 Carcinoembryonic Ag 0.7 ng/ml (0-2.5) 05/06/25 08:48 Prostate Specific Ag 9.396 ng/ml (0-4) H 10/29/25 06:41 Procalcitonin 2.78 ng/ml (0-0.5) H 05/06/25 08:48 Urine Color Yellow 05/04/25 11:46 Urine Appearance Clear (Clear) 05/04/25 11:46 Urine pH 7.5 (4.5-7.5) 05/04/25 11:46 Ur Specific [place] 1.014 (1.000-1.030) 05/04/25 11:46 Urine Protein Negative (Negative) 05/04/25 11:46 Urine Glucose (UA) Negative (Negative) 05/04/25 11:46 Urine Ketones Trace (Negative) H 05/04/25 11:46 Urine Blood Negative (Negative) 05/04/25 11:46 Urine Nitrite Negative (Negative) 05/04/25 11:46 Urine Bilirubin Negative (Negative) 05/04/25 11:46 Urine Urobilinogen Negative (Negative) 05/04/25 11:46 Ur Leukocyte Esterase Trace (Negative) H 05/04/25 11:46 Urine WBC (Auto) 0-5 /hpf (0-5) 05/04/25 11:46 Urine RBC (Auto) 0-2 /hpf (0-2) 05/04/25 11:46 U Hyaline Cast (Auto) 0-2 /lpf (0-2) 05/04/25 11:46 U Epithel Cells (Auto) 0-2 /hpf (0-2) 05/04/25 11:46 Urine Bacteria (Auto) None Seen (None Seen) 05/04/25 11:46 Urine Comment 05/04/25 11:46 Enterococc faecalis PCR DETECTED (NotDetected) A 05/04/25 11:23 Toribio/B-Vanco Res Genes VRE Not Detected (NotDetected) 05/04/25 11:23 Bld Cult ID Panel PCR See PCR Comment (NotDetected) 05/04/25 11:23 Impressions Chest X-Ray 05/04/25 10:53 XR chest 1V portable CLINICAL HISTORY: Sepsis COMPARISON STUDY: 05/02/2025 FINDINGS: Stable cardiac valve repair and pacemaker. Stable cardiomegaly with mild pulmonary vascular congestion. Inspiration is shallow. There is interval mild stranding opacity at the right lung base. No other consolidation or pleural effusion. No pneumothorax. IMPRESSION: 1. Mild CHF. 2. Atelectasis versus early pneumonia right lung base. ACT 112: Negative or not required by law. Electronically signed by: Anders Hutchinson M.D. 05/04/2025 11:43 AM Hip/Pelvis X-Ray 05/04/25 11:01 XR hip RT 2V w pelvis CLINICAL HISTORY: Right hip pain, sepsis. COMPARISON: Pelvis radiograph January 04, 2023. CT of the abdomen and pelvis April 26, 2025. FINDINGS: The sacroiliac joints and symphysis pubis are intact. There are no fractures within the pelvis or hips. No suspicious osseous lesions are identified. There is mild to moderate osteoarthritis of both hips. IMPRESSION: 1. No fractures within the pelvis or hips. 2. Mild to moderate bilateral hip osteoarthritis. ACT 112: Negative or not required by law. Electronically signed by: Silver Carroll M.D. 05/04/2025 11:44 AM Abdomen/Pelvis CT 05/04/25 13:00 CT abdomen pelvis wo/w con HISTORY: 79 years-old Male right hip pain, posterior lateral acute pain of the pelvis and right hip without reported trauma COMPARISON: Right hip CT of same day, CT abdomen and pelvis 04/26/2025 TECHNIQUE: Multiple axial CT images of the pelvis were obtained with and without IV contrast. A dose lowering technique was used consistent with the principals of ALARA. FINDINGS: Cardiomegaly with prosthetic aortic valve. Sternotomy wires are present. Fusiform dilation of the ascending thoracic aorta, 4 cm. Small pleural effusions with mild dependent bibasilar atelectasis. No pneumatosis or pneumoperitoneum. Hepatic steatosis. Patency of the hepatic and portal veins. Unremarkable spleen, gallbladder and adrenal glands. 8 mm cystic focus of the pancreas image 1:15 series 9, possibly a sidebranch IPMN. No hydronephrosis. Small cyst of the posterior aspect inferior pole right kidney. No renal or ureteral calculi or hydronephrosis. No enhancing renal mass lesions. Prostatomegaly with heterogeneous enhancement. Urinary bladder wall thickening suggestive of chronic outlet obstruction. Atherosclerosis of the aorta without aneurysm. Borderline-enlarged periportal lymph nodes measure up to 11 mm, favored to be benign. Mild distal esophageal wall thickening with subcentimeter lymph nodes and trace adjacent inflammatory stranding. Colonic diverticulosis without acute diverticulitis. Mild to moderate colonic fecal retention. No acute fracture. IMPRESSION: 1. Stable exam compared to the study from 04/26/2025. 2. No acute intra-abdominal or intrapelvic abnormality. 3. Enlarged heterogeneously enhancing prostate. Correlate with PSA. 4. Hepatic steatosis. 5. Small pleural effusions. 6. Additional findings as above. ACT 112: Negative or not required by law. The above report was generated using voice recognition software. It may contain grammatical, syntax or spelling errors. Electronically signed by: Kartik Simons M.D. 05/04/2025 3:[address] 05/04/25 13:00 CT hip RT wo/w con CLINICAL HISTORY: Right hip pain. COMPARISON STUDY: Right hip radiographs performed earlier today. CT of the abdomen and pelvis April 26, 2025. TECHNIQUE: Axial images of the right hip were obtained before and after intravenous administration of 118 cc Optiray 320 IV. Coronal and sagittal reformats were viewed. A dose lowering technique was utilized adhering to the principles of ALARA. FINDINGS: Incidental note is made of moderate enlargement of the prostate. The prostate measures 5.7 cm in transverse diameter. The bladder is distended. These findings are better depicted on the abdomen and pelvis CT which will be reported separately. Alignment of the right hip is anatomic. There is no fracture. No osseous lesions are present. There is moderate posterior hip joint space narrowing. There is associated osteophytosis. There is no evidence for avascular necrosis of the right femoral head. No fluid collection is identified. Minimal subcutaneous stranding of the lateral right thigh is unchanged. There is no right inguinal lymphadenopathy. IMPRESSION: 1. No fractures within the right hip. 2. Moderate right hip osteoarthritis. ACT 112: Negative or not required by law. Electronically signed by: Silver Carroll M.D. 05/04/2025 3:15 PM Head CTA 05/04/25 13:01 CT angio head w con CLINICAL HISTORY: 79 years-old Male with syncope, hx of brain aneursym. Acute syncope COMPARISON STUDY: Head CT 05/02/2025, CTA head from outside facility 04/26/2011. TECHNIQUE: Following the IV administration of 118 cc of Optiray, CT angiogram of the brain was performed from the skull base to the vertex. Images are reviewed in the axial, sagittal, and coronal planes. 3-D MIPS images are created and assessed. IV contrast was administered without complication. All measurements were obtained according to NASCET criteria. A dose lowering technique was utilized adhering to the principles of ALARA. CT DOSE: 3527.09 mGy.cm FINDINGS: Involutional changes with probable chronic microvascular ischemic disease.Postoperative changes of prior right frontal craniotomy. Coastal thickening of the paranasal sinuses. Prior bilateral lens repair. 3.2 x 2.4 cm left parietal scalp hematoma has increased in size from prior. Calcifications of the central vandana are again seen. CT ANGIOGRAM OF THE BRAIN: The imaged bilateral internal carotid arteries are patent. Partially imaged arterial stent within the distal cervical segment right ICA. The bilateral anterior and middle cerebral arteries are also patent. There is a 4 cm segment of the T1 segment right posterior cerebral artery demonstrating high-grade stenosis, image 114 series 7 which has worsened from prior. The left posterior cerebral artery is widely patent. Aneurysmal clipping noted involving the anterior communicating artery. Dural sinuses appear patent. IMPRESSION: 1. Increased size of the left parietal scalp hematoma. 2. High-grade stenosis of the right posterior cerebral artery. 3. 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 ACT 112: Negative or not required by law. The above report was generated using voice recognition software. It may contain grammatical, syntax or spelling errors. Electronically signed by: Kartik Simons M.D. 05/04/2025 3:24 PM
--- NOTE | 2025-05-07 12:52 | Hospitalist Progress Note ---
Date of Service May 07, 2025 Assessment & Plan (1) Bacteremia due to Enterococcus: Plan: Ella Mccracken is a 79 yo male with PMH of brain aneurysm and SAD, CAD with bypass surgery; AVR, mitral valve, incomplete bladder emptying, psoiartic arthritis, pacemaker, he was admitted from 04/26-04/27 with fall and syncope episode. normally, he can walk several miles per days on 05/04/2025, he's presented to our hospital with bacteremia, right hip pain, dizziness, he's was in our ED a day prior with UTI and dc with ciprofloxacin echo was ordered to r/o vegetation, given his hx of psoaritis arthritis, right hip MRI and pelvis MRI was order to r/o fluid collection 1. bacteremia from E. facelis 2. syncope event 3. right hip pain 4. hx of AvR and mitral valve annuloplasty, CAD with bypass 5. hx of carotid stent on plavix 6. 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 psoriatic arthritis 8. A-fib on eliquis 9. sick sinus with pacemaker 10. GERD 11. hx of statin myopathy overall plan f/u on repeat blood culture c/w ceftriaxone IV and ampicillin 2g q4 hours f/u on colonoscopy result ID requested input from Dr. Dinero about whether pacemaker extraction is indicated if no extraction, than lifelong suppressive oral antibiotics outpatient f/u with elevated PSA, right hip pain PT and OT clearance (syncope episode) 1. bacteremia, from E facelis plan for colonoscopy on Monday 05/07 he was on daptomycin and ID switched him to ampicillin 2g q4 hours and ceftriaxone 2g IV q12 hours vancomycin, ID evaluation, echo to r/o vegetation f/u on repeat blood culture on 05/06/2025 (negative as off 05/07) s/p echo on 05/04 [facility] concerned for vegetation around the pacemaker spoke with cardiology, Dr. Kahn, defer extraction of device. he's was started on amoxicillin challenge on 05/06 ID suspect he need long-term suppression with amoxicillin 2. syncope event. interrogate pacemaker CTA negative for rupture aneurysm CTA found stenosis high grade stenosis in right posterior cerebral artery patient has subarachnoid hemorrhage 10-15 years from brain aneurysm his CTA on 05/04 show clips of anterior communicating artery elevated PSA level; f/u with urologist 3. acute right hip pain, denied hx of trauma, or hip repair his pacemaker is not compatible with our MRI machine his CT hip show hip arthritis 4. b/l carotid stenosis, carotid stent on plavix patient has Right TCAR procedure on December 2024 5. psoriatic arthritis, he's on Taltz auto-injector 6. A-fib, eliquis 5mg BID, metoprolol XL 100mg 7. hypertension, amlodipine 10mg daily 8. asthma, he's on fluticasone-salmeterol 100 mcg-50mg q12 hours 9, CAD with bypass surgery 10-15 years ago, pravastatin 10mg he's on aspirin and plavix 10. b12 deficiency, b12 1000mcg (2) UTI (urinary tract infection): (3) Right hip pain: Admission and Anticipated Discharge Date Admission Date: May 04, 2025 Subjective plan for colonoscopy today at 4pm repeat blood culture from 05/06 negative he's on ampicilin, he's was started on amoxicilin challenge yesterday continue to monitor his scalp hematoma spoke with orthopedic about his right hip pain, f/u in office in 2 weeks Physical Exam Physical Exam: VITALS: Reviewed. WEIGHT/BMI reviewed. GEN: Healthy appearing, well-developed, NAD. PSYCH: Good Judgment. AOx3. Normal memory, mood, and affect. HEENT -Head: NC/AT; + for scalp hematoma NECK: Supple, with no masses. CV: RRR, no m/r/g. + for murmur; + for pacemaker LUNGS: CTAB, no w/r/c. ABD: Soft, NT/ND, NBS, no masses or organomegaly. SKIN: Warm, well perfused. No skin rashes or abnormal lesions. EXT: right hip painful to range of motion NEURO: AAox3 Results & Data Results & Data Vital Signs (Past 12 Hours) Vital Signs Temp Pulse Pulse Resp BP Pulse Ox Pulse Ox 05/07/25 12:42 95 05/07/25 11:31 36.9 C 67 17 146/76 H 95 05/07/25 08:44 36.8 C 70 18 149/73 H 95 05/07/25 07:17 70 05/07/25 03:25 36.3 C L 72 20 171/73 H 95 O2 Del Method O2 Del Method 05/07/25 12:42 Room Air 05/07/25 11:31 Room Air 05/07/25 08:44 Room Air 05/07/25 07:17 05/07/25 03:25 Room Air Laboratory Results Laboratory Results - last 72 hr 05/04/25 05/04/25 05/05/25 11:23 11:46 06:41 WBC RBC Hgb Hct MCV MCH MCHC RDW Std Deviation RDW Coeff of Andres Plt Count MPV Sodium Potassium Chloride Carbon Dioxide Anion Gap BUN Creatinine Est Cr Clr Drug Dosing eGFR BUN/Creatinine Ratio Glucose Calcium Total Bilirubin AST ALT Alkaline Phosphatase Total Creatine Kinase 124 Total Protein Albumin Globulin Albumin/Globulin Ratio Carcinoembryonic Ag Prostate Specific Ag 9.396 H Procalcitonin Urine Color Yellow Urine Appearance Clear Urine pH 7.5 Ur Specific [place] 1.014 Urine Protein Negative Urine Glucose (UA) Negative Urine Ketones Trace H Urine Blood Negative Urine Nitrite Negative Urine Bilirubin Negative Urine Urobilinogen Negative Ur Leukocyte Esterase Trace H Urine WBC (Auto) 0-5 Urine RBC (Auto) 0-2 U Hyaline Cast (Auto) 0-2 U Epithel Cells (Auto) 0-2 Urine Bacteria (Auto) None Seen Urine Comment Enterococc faecalis PCR DETECTED A Toribio/B-Vanco Res Genes VRE Not Detected Bld Cult ID Panel PCR See PCR Comment 05/06/25 05/07/25 08:48 06:01 WBC 7.28 4.03 L RBC 2.94 L 2.60 L Hgb 9.4 L 8.3 L Hct 29.1 L 25.1 L MCV 99.0 96.5 MCH 32.0 31.9 MCHC 32.3 33.1 RDW Std Deviation 54.4 H 51.7 H RDW Coeff of Andres 15.0 H 14.6 H Plt Count 201 171 MPV 10.4 10.9 Sodium 134 L 134 L Potassium 4.0 3.7 Chloride 102 102 Carbon Dioxide 24 23 Anion Gap 8 9 BUN 19 13 Creatinine 0.78 0.66 Est Cr Clr Drug Dosing 76.7 90.7 eGFR 91.85 96.60 BUN/Creatinine Ratio 24.4 H 19.7 Glucose 124 H 104 H Calcium 8.8 8.3 L Total Bilirubin 1.1 H D 0.5 D AST 21 22 ALT 29 26 Alkaline Phosphatase 57 50 Total Creatine Kinase Total Protein 7.1 6.4 Albumin 3.3 L 3.3 L Globulin 3.8 3.1 Albumin/Globulin Ratio 0.9 1.1 Carcinoembryonic Ag 0.7 Prostate Specific Ag Procalcitonin 2.78 H Urine Color Urine Appearance Urine pH Ur Specific [place] Urine Protein Urine Glucose (UA) Urine Ketones Urine Blood Urine Nitrite Urine Bilirubin Urine Urobilinogen Ur Leukocyte Esterase Urine WBC (Auto) Urine RBC (Auto) U Hyaline Cast (Auto) U Epithel Cells (Auto) Urine Bacteria (Auto) Urine Comment Enterococc faecalis PCR Toribio/B-Vanco Res Genes Bld Cult ID Panel PCR Diagnostic Findings Laboratory Results WBC 4.03 K/ul (4.8-10.8) L 05/07/25 06:01 RBC 2.60 M/uL (4.70-6.10) L 05/07/25 06:01 Hgb 8.3 g/dl (14.0-18.0) L 05/07/25 06:01 Hct 25.1 % (42.0-52.0) L 05/07/25 06:01 MCV 96.5 fL (80.0-100.0) 05/07/25 06:01 MCH 31.9 pg (25.0-34.0) 05/07/25 06:01 MCHC 33.1 g/dL (32.0-36.0) 05/07/25 06:01 RDW Std Deviation 51.7 fL (36.4-46.3) H 05/07/25 06:01 RDW Coeff of Andres 14.6 % (11.5-14.5) H 05/07/25 06:01 Plt Count 171 K/uL (130-400) 05/07/25 06:01 MPV 10.9 fL (9.4-12.4) 05/07/25 06:01 Immature Gran % (Auto) 0.8 % 05/04/25 11:23 Neut % (Auto) 75.1 % 05/04/25 11:23 Lymph % (Auto) 6.4 % 05/04/25 11:23 [place] % (Auto) 17.3 % 05/04/25 11:23 Eos % (Auto) 0.2 % 05/04/25 11:23 Baso % (Auto) 0.2 % 05/04/25 11:23 Neut # (Auto) 3.74 K/uL (1.40-6.50) 05/04/25 11:23 Lymph # (Auto) 0.32 K/uL (1.20-3.40) L 05/04/25 11:23 [place] # (Auto) 0.86 K/uL (0.11-0.59) H 05/04/25 11:23 Eos # (Auto) 0.01 K/uL (0.00-0.50) 05/04/25 11:23 Baso # (Auto) 0.01 K/uL (0.00-0.20) 05/04/25 11:23 Immature Gran # (Auto) 0.04 K/uL (0.01-0.20) 05/04/25 11:23 VBG pH 7.37 (7.36-7.41) 05/04/25 11:23 VBG pCO2 37 mmHg (38-50) L 05/04/25 11:23 VBG pO2 36 mmHg 05/04/25 11:23 VBG HCO3 21 mmol/L 05/04/25 11:23 VBG O2 Saturation < 60.0 % 05/04/25 11:23 VBG Base Excess -3.5 mEq/L 05/04/25 11:23 Sodium 134 mmol/L (136-145) L 05/07/25 06:01 Potassium 3.7 mmol/L (3.5-5.1) 05/07/25 06:01 Chloride 102 mmol/L (98-107) 05/07/25 06:01 Carbon Dioxide 23 mmol/L (21-32) 05/07/25 06:01 Anion Gap 9 (3-11) 05/07/25 06:01 BUN 13 mg/dl (6-23) 05/07/25 06:01 Creatinine 0.66 mg/dl (0.6-1.4) 05/07/25 06:01 Est Cr Clr Drug Dosing 90.7 ml/min 05/07/25 06:01 eGFR 96.60 05/07/25 06:01 BUN/Creatinine Ratio 19.7 (10-20) 05/07/25 06:01 Glucose 104 mg/dl (70-99(Fasting)) H 05/07/25 06:01 Lactate 1.7 mmol/L (0.4-2.0) 05/04/25 11:23 Calcium 8.3 mg/dl (8.6-10.3) L 05/07/25 06:01 Magnesium 2.0 mg/dl (1.7-2.4) 05/04/25 11:23 Total Bilirubin 0.5 mg/dl (0.2-1.0) D 05/07/25 06:01 Direct Bilirubin 0.2 mg/dl (0-0.2) 05/04/25 11:23 AST 22 U/L (13-39) 05/07/25 06:01 ALT 26 U/L (7-52) 05/07/25 06:01 Alkaline Phosphatase 50 U/L (34-104) 05/07/25 06:01 Total Creatine Kinase 124 U/L (30-223) 05/05/25 06:41 Troponin I High Sens 17.6 pg/ml (0-20) 05/04/25 11:23 Total Protein 6.4 gm/dl (6.0-8.3) 05/07/25 06:01 Albumin 3.3 gm/dl (3.4-5.0) L 05/07/25 06:01 Globulin 3.1 gm/dl (2.5-4.0) 05/07/25 06:01 Albumin/Globulin Ratio 1.1 (0.9-2) 05/07/25 06:01 Carcinoembryonic Ag 0.7 ng/ml (0-2.5) 05/06/25 08:48 Prostate Specific Ag 9.396 ng/ml (0-4) H 05/05/25 06:41 Procalcitonin 2.78 ng/ml (0-0.5) H 05/06/25 08:48 Urine Color Yellow 05/04/25 11:46 Urine Appearance Clear (Clear) 05/04/25 11:46 Urine pH 7.5 (4.5-7.5) 05/04/25 11:46 Ur Specific [place] 1.014 (1.000-1.030) 05/04/25 11:46 Urine Protein Negative (Negative) 05/04/25 11:46 Urine Glucose (UA) Negative (Negative) 05/04/25 11:46 Urine Ketones Trace (Negative) H 05/04/25 11:46 Urine Blood Negative (Negative) 05/04/25 11:46 Urine Nitrite Negative (Negative) 05/04/25 11:46 Urine Bilirubin Negative (Negative) 05/04/25 11:46 Urine Urobilinogen Negative (Negative) 05/04/25 11:46 Ur Leukocyte Esterase Trace (Negative) H 05/04/25 11:46 Urine WBC (Auto) 0-5 /hpf (0-5) 05/04/25 11:46 Urine RBC (Auto) 0-2 /hpf (0-2) 05/04/25 11:46 U Hyaline Cast (Auto) 0-2 /lpf (0-2) 05/04/25 11:46 U Epithel Cells (Auto) 0-2 /hpf (0-2) 05/04/25 11:46 Urine Bacteria (Auto) None Seen (None Seen) 05/04/25 11:46 Urine Comment 05/04/25 11:46 Enterococc faecalis PCR DETECTED (NotDetected) A 05/04/25 11:23 Toribio/B-Vanco Res Genes VRE Not Detected (NotDetected) 05/04/25 11:23 Bld Cult ID Panel PCR See PCR Comment (NotDetected) 05/04/25 11:23 Impressions Chest X-Ray 05/04/25 10:53 XR chest 1V portable CLINICAL HISTORY: Sepsis COMPARISON STUDY: 05/02/2025 FINDINGS: Stable cardiac valve repair and pacemaker. Stable cardiomegaly with mild pulmonary vascular congestion. Inspiration is shallow. There is interval mild stranding opacity at the right lung base. No other consolidation or pleural effusion. No pneumothorax. IMPRESSION: 1. Mild CHF. 2. Atelectasis versus early pneumonia right lung base. ACT 112: Negative or not required by law. Electronically signed by: Andres Hutchinson M.D. 05/04/2025 11:43 AM Hip/Pelvis X-Ray 05/04/25 11:01 XR hip RT 2V w pelvis CLINICAL HISTORY: Right hip pain, sepsis. COMPARISON: Pelvis radiograph January 04, 2023. CT of the abdomen and pelvis April 26, 2025. FINDINGS: The sacroiliac joints and symphysis pubis are intact. There are no fractures within the pelvis or hips. No suspicious osseous lesions are identified. There is mild to moderate osteoarthritis of both hips. IMPRESSION: 1. No fractures within the pelvis or hips. 2. Mild to moderate bilateral hip osteoarthritis. ACT 112: Negative or not required by law. Electronically signed by: Silver Carroll M.D. 05/04/2025 11:44 AM Abdomen/Pelvis CT 05/04/25 13:00 CT abdomen pelvis wo/w con HISTORY: 79 years-old Male right hip pain, posterior lateral acute pain of the pelvis and right hip without reported trauma COMPARISON: Right hip CT of same day, CT abdomen and pelvis 04/26/2025 TECHNIQUE: Multiple axial CT images of the pelvis were obtained with and without IV contrast. A dose lowering technique was used consistent with the principals of LIGIA. FINDINGS: Cardiomegaly with prosthetic aortic valve. Sternotomy wires are present. Fusiform dilation of the ascending thoracic aorta, 4 cm. Small pleural effusions with mild dependent bibasilar atelectasis. No pneumatosis or pneumoperitoneum. Hepatic steatosis. Patency of the hepatic and portal veins. Unremarkable spleen, gallbladder and adrenal glands. 8 mm cystic focus of the pancreas image 1:15 series 9, possibly a sidebranch IPMN. No hydronephrosis. Small cyst of the posterior aspect inferior pole right kidney. No renal or ureteral calculi or hydronephrosis. No enhancing renal mass lesions. Prostatomegaly with heterogeneous enhancement. Urinary bladder wall thickening suggestive of chronic outlet obstruction. Atherosclerosis of the aorta without aneurysm. Borderline-enlarged periportal lymph nodes measure up to 11 mm, favored to be benign. Mild distal esophageal wall thickening with subc entimeter lymph nodes and trace adjacent inflammatory stranding. Colonic diverticulosis without acute diverticulitis. Mild to moderate colonic fecal retention. No acute fracture. IMPRESSION: 1. Stable exam compared to the study from 04/26/2025. 2. No acute intra-abdominal or intrapelvic abnormality. 3. Enlarged heterogeneously enhancing prostate. Correlate with PSA. 4. Hepatic steatosis. 5. Small pleural effusions. 6. Additional findings as above. ACT 112: Negative or not required by law. The above report was generated using voice recognition software. It may contain grammatical, syntax or spelling errors. Electronically signed by: Kartik Simons M.D. 05/04/2025 3:[address] 05/04/25 13:00 CT hip RT wo/w con CLINICAL HISTORY: Right hip pain. COMPARISON STUDY: Right hip radiographs performed earlier today. CT of the abdomen and pelvis April 26, 2025. TECHNIQUE: Axial images of the right hip were obtained before and after intravenous administration of 118 cc Optiray 320 IV. Coronal and sagittal reformats were viewed. A dose lowering technique was utilized adhering to the principles of ALARA. FINDINGS: Incidental note is made of moderate enlargement of the prostate. The prostate measures 5.7 cm in transverse diameter. The bladder is distended. These findings are better depicted on the abdomen and pelvis CT which will be reported separately. Alignment of the right hip is anatomic. There is no fracture. No osseous lesions are present. There is moderate posterior hip joint space narrowing. There is associated osteophytosis. There is no evidence for avascular necrosis of the right femoral head. No fluid collection is identified. Minimal subcutaneous stranding of the lateral right thigh is unchanged. There is no right inguinal lymphadenopathy. IMPRESSION: 1. No fractures within the right hip. 2. Moderate right hip osteoarthritis. ACT 112: Negative or not required by law. Electronically signed by: Silver Carroll M.D. 05/04/2025 3:15 PM Head CTA 05/04/25 13:01 CT angio head w con CLINICAL HISTORY: 79 years-old Male with syncope, hx of brain aneursym. Acute syncope COMPARISON STUDY: Head CT 05/02/2025, CTA head from outside facility 04/26/2011. TECHNIQUE: Following the IV administration of 118 cc of Optiray, CT angiogram of the brain was performed from the skull base to the vertex. Images are reviewed in the axial, sagittal, and coronal planes. 3-D MIPS images are created and assessed. IV contrast was administered without complication. All measurements were obtained according to NASCET criteria. A dose lowering technique was utilized adhering to the principles of ALARA. CT DOSE: 3527.09 mGy.cm FINDINGS: Involutional changes with probable chronic microvascular ischemic disease.Postoperative changes of prior right frontal craniotomy. Coastal thickening of the paranasal sinuses. Prior bilateral lens repair. 3.2 x 2.4 cm left parietal scalp hematoma has increased in size from prior. Calcifications of the central vandana are again seen. CT ANGIOGRAM OF THE BRAIN: The imaged bilateral internal carotid arteries are patent. Partially imaged arterial stent within the distal cervical segment right ICA. The bilateral anterior and middle cerebral arteries are also patent. There is a 4 cm segment of the T1 segment right posterior cerebral artery demonstrating high-grade stenosis, image 114 series 7 which has worsened from prior. The left posterior cerebral artery is widely patent. Aneurysmal clipping noted involving the anterior communicating artery. Dural sinuses appear patent. IMPRESSION: 1. Increased size of the left parietal scalp hematoma. 2. High-grade stenosis of the right posterior cerebral artery. 3. 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 ACT 112: Negative or not required by law. The above report was generated using voice recognition software. It may contain grammatical, syntax or spelling errors. Electronically signed by: Kartik Simons M.D. 05/04/2025 3:24 PM PG Care Time/CCT Total # of Minutes Spent Total Time Spent with Patient: Total time spent is greater than 50% in coordination of care (as documented) at patient's floor/unit and/or counseling patient: Coding Level of Care Code 46254 SUB INP/OBS CARE 2/35MIN Diagnoses Bacteremia due to Enterococcus R78.81; B95.2 UTI (urinary tract infection) N39.0 Right hip pain M25.551 Time Spent (min) 30
--- NOTE | 2025-05-07 14:40 | Anesthesiology Consultation ---
Date of Service May 07, 2025 Assessment & Plan Chart Review Chart Review: Acceptable Risk for Surgery Consults Requested none History Surgery Operation Date: 05/05/25 12:00 Proposed Procedures p Transesophageal Echo w/Anesthesia - Jerzy Kahn MD Operation Date: 05/07/25 16:45 Proposed Procedures p Colonoscopy Dr. Gilmar Schafer MD Height/Weight Height: 5 ft 8 in Weight: 73.981 kg Allergies Allergy/AdvReac Type Severity Reaction Status Date / Time atorvastatin AdvReac Intermediate Muscle Pain Verified 04/20/25 13:29 rosuvastatin [From Crestor] AdvReac Intermediate Muscle Pain Verified 04/20/25 13:29 Medications Home Medications Medication Instructions Recorded Confirmed Last Taken cyanocobalamin (vitamin B-12) 1,000 mcg PO QAM 11/08/20 05/04/25 04/12/25 1,000 mcg tablet (Vitamin B-12) pravastatin 10 mg tablet 10 mg PO DAILY #90 tabs 06/19/24 05/04/25 12/15/24 09:00 clopidogrel 75 mg tablet 75 mg PO QAM 12/16/24 05/04/25 04/12/25 metoprolol succinate 100 mg 100 mg PO BID #180 tabs 01/27/25 05/04/25 04/12/25 tablet,extended release 24 hr Taltz Autoinjector 80 mg/mL 80 mg subcut Q28D #1 mL 02/18/25 05/04/25 Unknown subcutaneous (ixekizumab) apixaban 5 mg tablet (Eliquis) 5 mg PO BID #180 tabs 02/23/25 05/04/25 04/12/25 albuterol sulfate 90 mcg/actuation 2 puff inhalation Q4 PRN Shortness 04/12/25 05/04/25 Unknown aerosol inhaler Of Breath Or Wheezing amlodipine 10 mg tablet 10 mg PO QAM 04/26/25 05/04/25 Unknown fluticasone 250 mcg-salmeterol 50 1 inh inhalation BID #60 ea 04/29/25 05/04/25 Unknown mcg/dose blistr powdr for inhalation (Wixela Inhub) ciprofloxacin HCl 500 mg tablet 500 mg PO Q12H #20 tabs 05/02/25 05/04/25 Unknown Active Medications Generic Name Dose Route Start Last Admin Trade Name Freq PRN Reason Stop Dose Admin Hydrocodone Bitart/Acetaminophen 1 tab 05/05/25 16:14 05/05/25 16:26 Hydrocodone/Acetaminophen 10/325 Tab PO 05/09/25 16:13 1 tab Q6H PRN Administration Pain Amlodipine Besylate 10 mg 05/05/25 09:00 05/07/25 08:30 Amlodipine Besylate 5 Mg Tab PO 06/04/25 08:59 10 mg QAM EMILE Administration Clopidogrel Bisulfate 75 mg 05/05/25 09:00 05/07/25 08:30 Clopidogrel Bisulfate 75 Mg Tab PO 06/04/25 08:59 75 mg QAM EMILE Administration Cyanocobalamin 1,000 mcg 05/05/25 09:00 05/07/25 08:30 Cyanocobalamin (B-12) 500 Mcg Tablet PO 06/04/25 08:59 1,000 mcg QAM EMILE Administration Fluticasone/Vilanterol 1 puffs 05/05/25 09:00 05/07/25 08:30 Fluticasone/Vilanterol 200/25mcg 14 Puffs/Inhaler INH 06/04/25 08:59 1 puffs DAILY EMILE Administration Protocol Ampicillin Sodium 2,000 mg/ 100 mls @ 200 mls/hr 05/06/25 16:00 05/07/25 12:56 Sodium Chloride IV 06/17/25 15:59 Infused Q4H EMILE Infusion Ceftriaxone Sodium 2,000 mg in 50 mls @ 100 mls/hr 05/06/25 16:30 05/07/25 05:16 Rocephin IV 06/17/25 16:29 Infused Q12H EMILE Infusion Metoprolol Succinate 100 mg 05/04/25 21:00 05/07/25 08:30 Metoprolol Succ 50mg Ext Rel Tab PO 06/03/25 20:59 100 mg BID EMILE Administration Pravastatin Sodium 10 mg 05/05/25 09:00 05/07/25 08:30 Pravastatin Sod 10 Mg Tab PO 06/04/25 08:59 10 mg DAILY EMILE Administration Past Medical History Medical History Episode of syncope Chronic anticoagulation Right shoulder pain Laceration of scalp Thoracic aortic aneurysm mild aneurysmal dilatation of the visualized ascending thoracic aorta which measures up to 4.1 cm per 6/30/23 A/P CT scan Carotid stenosis, right 80% stenosis of right ICA Dizzy spells Intermittent x two years per vascular records Psoriatic arthritis Follows with rheum Cardiac pacemaker s/p complete heart block Jul 2011- DDDR pacemaker Mitral valve insufficiency s/p Jordyn-Camarena mitral valve ring, #28, July 2011 Benign prostatic hyperplasia with urinary obstruction and other lower urinary tract symptoms Asthma Nephrolithiasis passed on own Paroxysmal atrial fibrillation Dx 2009> pacer/ Xarelto Brain aneurysm - with repair> [facility] > was in hospital for 12 weeks > 2009 - stable findings following right frontal craniotomy per 10/[address] - CT angiogram 02/03/2013- post surgical changes - no longer needs to follow with neuro per PCP office visit 11/2024 Left hand weakness 2022- PCP recommended PT Rheum ordered EMG testing at 11/2024 appt GERD (gastroesophageal reflux disease) hx> none at present NSVT (nonsustained ventricular tachycardia) Migratory polyarthritis Abnormal liver enzymes stable x years per PCP records; daily alcohol use CHF (congestive heart failure) follows with Dr. Dinero EF 60-65% on 04/2024 ECHO CAD (coronary artery disease), belkofski coronary artery - non interveneable RCA, July 2011 - 30 to 40% LAD and OM 3, small nondominant RCA with moderate disease, April 2018 Aortic stenosis severe secondary to bicuspid AV Jordyn-Camarena pericardial AVR #21 (2011) Later TAVR 2018 Past Family History Family History Father Pancreatic malignant neoplasm Malignant Pancreatic Neoplasm Colorectal cancer Denies family history of Ovarian cancer Prostate cancer Myocardial infarction Breast cancer Past Surgical History Surgical History History of cardiac cath 2018 no stents History of colonoscopy Hx of inguinal hernia repair Hx of vasectomy History of cataract surgery bilat History of mitral valve repair 2011 History of tonsillectomy and adenoidectomy History of cerebral aneurysm repair 2009 History of craniotomy 2009 (brain aneurysm) History of heart valve replacement 2012= AVR > Mile Later TAVR in 2018 in [place] [facility] History Smoking Status: Never smoker Do You Dip or Chew Tobacco: No Hx Alcohol Use: Yes Alcohol type: wine and hard liquor alcohol intake frequency: 3 or more drinks per day Hx Substance Use: No substance use type: does not use Physical Exam Vital Signs Last Vital Signs Temp 36.9 C 05/07/25 11:31 Pulse 67 05/07/25 11:31 Resp 17 05/07/25 11:31 BP 146/76 H 05/07/25 11:31 Pulse Ox 95 05/07/25 12:42 O2 Del Method Room Air 05/07/25 12:42 Testing Laboratory Results 05/07/25 06:01 05/07/25 06:01 Urine Color Yellow 05/04/25 11:46 Urine Appearance Clear (Clear) 05/04/25 11:46 Urine pH 7.5 (4.5-7.5) 05/04/25 11:46 Ur Specific [place] 1.014 (1.000-1.030) 05/04/25 11:46 Urine Protein Negative (Negative) 05/04/25 11:46 Urine Glucose (UA) Negative (Negative) 05/04/25 11:46 Urine Ketones Trace (Negative) H 05/04/25 11:46 Urine Nitrite Negative (Negative) 05/04/25 11:46 Ur Leukocyte Esterase Trace (Negative) H 05/04/25 11:46 Urine WBC (Auto) 0-5 /hpf (0-5) 05/04/25 11:46 Urine RBC (Auto) 0-2 /hpf (0-2) 05/04/25 11:46 U Hyaline Cast (Auto) 0-2 /lpf (0-2) 05/04/25 11:46 U Epithel Cells (Auto) 0-2 /hpf (0-2) 05/04/25 11:46 Urine Bacteria (Auto) None Seen (None Seen) 05/04/25 11:46 05/06/25 08:48 Aerobic Blood Culture - Preliminary Blood No growth in Aerobic bottle after 24 hours. Anaerobic Blood Culture - Preliminary No growth in Anaerobic bottle after 24 hours. 05/06/25 08:48 Aerobic Blood Culture - Preliminary Blood No growth in Aerobic bottle after 24 hours. Anaerobic Blood Culture - Preliminary No growth in Anaerobic bottle after 24 hours. 05/05/25 15:43 Aerobic Blood Culture - Preliminary Blood No growth in Aerobic bottle after 24 hours. Anaerobic Blood Culture - Preliminary No growth in Anaerobic bottle after 24 hours. 05/05/25 15:43 Aerobic Blood Culture - Preliminary Blood No growth in Aerobic bottle after 24 hours. Anaerobic Blood Culture - Preliminary No growth in Anaerobic bottle after 24 hours. 05/04/25 11:23 Aerobic Blood Culture - Preliminary Blood No growth in Aerobic bottle after 48 hours. Anaerobic Blood Culture - Preliminary No growth in Anaerobic bottle after 48 hours. 05/04/25 11:23 Aerobic Blood Culture - Final Blood Enterococcus faecalis Anaerobic Blood Culture - Final Enterococcus faecalis
--- NOTE | 2025-05-07 14:55 | Infectious Disease Progress Nt ---
Date of Service May 07, 2025 Assessment & Plan (1) Bacteremia due to Enterococcus: (2) UTI (urinary tract infection): (3) History of aortic valve replacement: Plan ID Problem List: # E. faecalis bacteremia, pacemaker lead infection, presumed PVE of the aortic valve # UCx + E. faecalis, possible UTI # History of bioprosthetic AV replacement # History of mitral valve annuloplasty # History of sick sinus syndrome s/p pacemaker # History of psoriatic arthritis on Taltz (ixekizumab) # Reported antibiotic allergy: penicillins (rash) Impression: Ella Mccracken is a 79-year-old man with history of history of s/p aortic valve replacement 2011, mitral valve annuloplasty, SSS s/p PPM 2011, Afib on Eliquis, CAD s/p CABG, brain aneurysm c/b SDH s/p clipping 2009, psoriatic arthritis on Taltz (ixekizumab), recent admission 04/26-04/27/25 with syncope, ED visit on 05/02/25, who presents to [facility] on 05/04/25 d/t BCx from 05/02 showing E. faecalis bacteremia. ID is consulted for E. faecalis bacteremia. The patient was recently admitted from 04/26-04/27 with fall and syncope episode with head injury. He was found to have a small scalp hematoma. His syncope was felt to be vasovagal. He had his PPM interrogated without issue. The patient was seen in the ED on 05/02/25 for increasing weakness since his hospitalization and had some dysuria. At the time, he was afebrile, WBC 9.48 Hgb 9.5 plt 215 Cr 0.81 LFTs wnl. UA with 21-50 WBCs, 3-5 RBcs, 2+ bacteria, neg nitrite, 1+ LE. He was diagnosed with UTI and discharged to complete a course of ciprofloxacin. His BCx from 05/02 are growing E. faecalis. He is also reporting R hip pain and dizziness. He still has a small amount of dysuria. 05/04 TTE without reported mass/vegetation; abnormal gradient for bioprosthetic AV, severe , moderate mitral annular calcification, severe MS, elevated RVSP, borderline aortic root dilatation. 05/[address] without fracture, showing moderate R hip OA. 05/04 head CTA showing increased size of the L parietal hematoma from prior; high-grade stenosis of the R [employer], aneurysmal clips of the HERNESTO. Discussion Pt presenting with E. faecalis bacteremia, in the setting of recent syncope (no BCx obtained that admission), and also reporting dysuria, dizziness, and R hip pain. Now confirmed on RORO to have pacemaker lead infection, and although not seen on RORO presumed to have PVE of the aortic valve. 05/04 TTE without reported mass/vegetation; abnormal gradient for bioprosthetic AV, severe , moderate mitral annular calcification, severe MS, elevated RVSP, borderline aortic root dilatation. Given abnormal TTE and history of AVR/PPM, recommended RORO. 05/05 RORO showing small mobile mass on a pacemaker lead in the right atrium; bioprosthetic aortic valve without obvious masses or vegetations but image quality compromised by the structure of the valve; moderate-severe mitral stenosis, calcified mitral annulus without e/o vegetation. Awaiting to hear from cardiology to see whether PPM removal is an option. BCx from 05/02 positive; repeat BCx from 05/04 remain positive. BCx from 05/05 and 05/06 are thus far NGTD. Would continue to monitor closely for any new/worsening focal complaints (e.g., joint pain, back pain) with low threshold to image/evaluate as possible metastatic infection. If ongoing pelvic/hip or back pain, would consider MRI. On 05/06, pt reporting lower back pain with ambulation but none at rest or on palpation. The original source of the E. faecalis is unclear; UA with pyuria and pt with dysuria, and UCx with E. faecalis as well; CT A/P without e/o ascending UTI but does show enlarged enhancing prostate. Pt has not had a C-scope for >10 years, tentatively planning for inpatient C-scope on 05/07. Pt with history of penicillins (rash during childhood, does not think it required hospitalization), and has tolerated a graded challenge of amoxicillin. Therefore, have changed to ampicillin and ceftriaxone. Currently anticipate at least a 6-week course of IV abx. If PPM/lead are not able to be removed, then will need to consider indefinite suppressive PO abx therapy (e.g., amoxicillin) after completion of IV abx. Recommendations: - Continue ampicillin 2g IV q4h and ceftriaxone 2g IV q12h for E. faecalis PPM infection and presumed PVE - Would discuss with cardiology to see whether PPM removal is an option. Awaiting to hear back from patients outpatient bonsai tender Dr. Dinero - Currently anticipate at least a 6-week course of IV antibiotics. If PPM/lead are not able to be removed, then will need to consider indefinite suppressive PO abx therapy (e.g., amoxicillin) after completion of IV abx. - F/u BCx from 05/05 and 05/06 until finalized to ensure negative - F/u C-scope results from 05/07 - Continue to monitor closely for any new/worsening focal complaints (e.g., joint pain, back pain) with low threshold to image/evaluate as possible metastatic infection - If ongoing back or pelvic/hip pain, would consider MRI ID will continue to follow. Please contact us with any questions. Over the weekend, the on-call ID provider can be reached at [phone] for urgent/time-sensitive questions. Dr. Chetan Sanders will resume care of the ID service on Saturday. Angela Arias MD, MHS Infectious Diseases [facility]/ID Connect ID Connect direct line: [phone] Admission and Anticipated Discharge Date Admission Date: May 04, 2025 Subjective This patient recommendation is based on a telemedicine consult request which was completed asynchronously through chart review and information provided by the primary physician. The patient was not seen or examined today. The evaluation is consultative in nature and all patient care and treatment decisions can either be accepted or rejected by the patient's primary hospital-based treating physician using their own independent medical judgment for their patient. PLEASE NOTE: E-consult was performed for this visit given lack of telepresenter availability. Time Spent Reviewing Chart: 31+ minutes PLEASE NOTE: E-consult was performed for this visit given lack of telepresenter availability. - Afebrile, WBC 4.03 - Plan for colonoscopy today - Awaiting a response from pts outpatient bonsai tender (Dr. Dinero) on question of pacemaker/lead removal Results & Data Vital Signs (Past 12 Hours) Vital Signs Temp Pulse Pulse Resp BP Pulse Ox Pulse Ox 05/07/25 14:41 36.9 C 78 18 126/72 96 05/07/25 12:42 95 05/07/25 11:31 36.9 C 67 17 146/76 H 95 05/07/25 08:44 36.8 C 70 18 149/73 H 95 05/07/25 07:17 70 05/07/25 03:25 36.3 C L 72 20 171/73 H 95 O2 Del Method O2 Del Method 05/07/25 14:41 Room Air 05/07/25 12:42 Room Air 05/07/25 11:31 Room Air 05/07/25 08:44 Room Air 05/07/25 07:17 05/07/25 03:25 Room Air Laboratory Results Diagnostics: 05/05 RORO Small mobile mass on a pacemaker lead in the right atrium; bioprosthetic aortic valve without obvious masses or vegetations but image quality compromised by the structure of the valve; moderate-severe mitral stenosis, calcified mitral annulus without e/o vegetation 05/04 head CTA 1. Increased size of the left parietal scalp hematoma. 2. High-grade stenosis of the right posterior cerebral artery. 3. 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 05/[address] 1. No fractures within the right hip. 2. Moderate right hip osteoarthritis. 05/04 TTE without reported mass/vegetation; abnormal gradient for bioprosthetic AV, severe , moderate mitral annular calcification, severe MS, elevated RVSP, borderline aortic root dilatation 05/04 CT A/P w/ contrast 1. Stable exam compared to the study from 04/26/2025. 2. No acute intra-abdominal or intrapelvic abnormality. 3. Enlarged heterogeneously enhancing prostate. Correlate with PSA. 4. Hepatic steatosis. 5. Small pleural effusions. 6. Additional findings as above. 05/04 CT A/P with contrast without acute intraabdominal abnormality; enlarged enhancing prostate. Micro Data: 05/06 BCx x2: NGTD 05/05 BCx x2: NGTD 05/04 BCx x2: E. faecalis in 1/2 sets (2/4 bottles) 05/02 BCx x2: E. faecalis in 1/2 sets (1/4 bottles) 05/02 UCx: E. faecalis Antibiotic Summary: ampicillin (05/06 present) ceftriaxone (05/06 present) prior daptomycin (05/04 05/05) amoxicillin (05/06, 05/06) vancomycin (05/04)
--- NOTE | 2025-05-07 16:24 | Communication Note ---
Date of Service: May 07, 2025 Good preparation Colonoscopy to cecum 6 mm polyp distal sigmoid colon consistent with adenoma removed. This should not be the source for Enterococcus faecalis bacteremia. Diverticulosis and hemorrhoids
--- NOTE | 2025-05-07 16:31 | GI REPORT ---
[facility] Patient: LIBRA DUONG : 1945 Sex at : Male Age: 79 Years Procedure: Colonoscopy Date: 05/07/2025 Attending Physician: Rolando Schafer MD Referring MD: Gris Marmolejo DO Indications: - Enterococcus faecalis. This bacteremia is a strong association with colon neoplasm. Colonoscopy to evaluate. Medications: - Monitored Anesthesia Care Complications: - No immediate complications. Estimated Blood Loss: - Estimated blood loss was minimal. Procedure: - The adult colonoscope was introduced through the anus and advanced to the terminal ileum, with identification of the appendiceal orifice and ileocecal valve. - The colonoscopy was performed without difficulty. - The quality of the bowel preparation was good. Findings: - The perianal examination was normal. - Internal hemorrhoids were found during retroflexion. The hemorrhoids were small. - Multiple diverticula were found in the sigmoid colon. - A small (4-6 mm) polyp was found in the sigmoid colon. The polyp was sessile. The polyp was removed with a cold snare. Resection and retrieval were complete. - The exam was otherwise without abnormality on direct and retroflexion views. Impression: - Internal hemorrhoids. - Diverticulosis in the sigmoid colon. - One small (4-6 mm) polyp in the sigmoid colon, removed with a cold snare. Resected and retrieved. - The examination was otherwise normal on direct and retroflexion views. Recommendation: - Await pathology results. No recommended routine surveillance colonoscopies at 79 Procedure Code(s): - 70774, Colonoscopy, flexible; with removal of tumor(s), polyp(s), or other lesion(s) by snare technique Diagnosis Code(s): - D12.5, Benign neoplasm of sigmoid colon - K64.8, Other hemorrhoids - K57.30, Diverticulosis of large intestine without perforation or abscess without bleeding CPT(R) - 2023 copyright [employer]. All Rights Reserved. The CPT codes, CCI edits and ICD codes generated are intended as suggestions and were generated based on input data. These codes are preliminary and upon software reverse engineer review may be revised to meet current compliance and payer requirements. The provider is responsible for the final determination of appropriate codes, and modifiers. Rolando Schafer MD This document has been electronically signed. Note Initiated:05/07/2025 Note Completed:05/07/2025 4:30 PM [email or web address]\[id number]
--- NOTE | 2025-05-07 16:45 | Infectious Disease Progress Nt ---
Date of Service May 07, 2025 Assessment & Plan (1) UTI (urinary tract infection): (2) History of aortic valve replacement: Admission and Anticipated Discharge Date Admission Date: May 04, 2025 Subjective This patient recommendation is based on a telemedicine consult request which was completed asynchronously through chart review and information provided by the primary physician. The patient was not seen or examined today. The evaluation is consultative in nature and all patient care and treatment decisions can either be accepted or rejected by the patient's primary hospital-based treating physician using their own independent medical judgment for their patient. Results & Data Vital Signs (Past 12 Hours) Vital Signs Temp Pulse Pulse Resp BP Pulse Ox Pulse Ox 05/07/25 16:27 65 16 90/56 L 95 05/07/25 15:04 74 05/07/25 14:41 36.9 C 78 18 126/72 96 05/07/25 12:42 95 05/07/25 11:31 36.9 C 67 17 146/76 H 95 05/07/25 08:44 36.8 C 70 18 149/73 H 95 05/07/25 07:17 70 O2 Del Method O2 Del Method 05/07/25 16:27 Room Air 05/07/25 15:04 05/07/25 14:41 Room Air 05/07/25 12:42 Room Air 05/07/25 11:31 Room Air 05/07/25 08:44 Room Air 05/07/25 07:17
--- NOTE | 2025-05-07 16:57 | Anesthesiology Progress Note ---
Date of Service May 07, 2025 Anesthesia Post Procedure Vital Signs Vital Signs: Temp Pulse Pulse Resp BP Pulse Ox Pulse Ox 05/07/25 16:43 60 18 111/55 L 94 05/07/25 16:27 65 16 90/56 L 95 05/07/25 15:04 74 05/07/25 14:41 36.9 C 78 18 126/72 96 05/07/25 12:42 95 05/07/25 11:31 36.9 C 67 17 146/76 H 95 05/07/25 08:44 36.8 C 70 18 149/73 H 95 05/07/25 07:17 70 05/07/25 03:25 36.3 C L 72 20 171/73 H 95 05/06/25 23:02 36.4 C L 69 20 172/74 H 95 05/06/25 21:54 70 05/06/25 19:41 36.8 C 72 18 155/74 H 94 O2 Del Method O2 Del Method 05/07/25 16:43 Room Air 05/07/25 16:27 Room Air 05/07/25 15:04 05/07/25 14:41 Room Air 05/07/25 12:42 Room Air 05/07/25 11:31 Room Air 05/07/25 08:44 Room Air 05/07/25 07:17 05/07/25 03:25 Room Air 05/06/25 23:02 Room Air 05/06/25 21:54 05/06/25 19:41 Room Air Pain Intensity Generalized: Pain Intensity: 8 Transfer of Care Handoff Completed per policy Notes Mental Status: alert / awake / arousable Patient Amnestic to Procedure: Yes Nausea / Vomiting: adequately controlled Pain: adequately controlled Airway Patency, RR, SpO2: stable & adequate BP & HR: stable & adequate Hydration State: stable & adequate Anesthetic Complications: no major complications apparent and Pt Satisfied with anesthetic care
[2025-05-07] MEDS: LIDOCAINE 2% 2 ML VIAL/AMP(20MG/ML) INFIL ONE (18:05)
[2025-05-07] MEDS: PROPOFOL IV EMULSION 10 MG/ML 20 ML VIAL IV ONE (18:05)
[2025-05-08 06:50] LABS: Hematocrit (blood only) 25.8 % (42.0-52.0); Hemoglobin 8.6 g/dl (14.0-18.0); Mean Corpuscular Hemoglobin 32.0 pg (25.0-34.0); Mean Corpuscular Volume 95.9 fL (80.0-100.0); Platelet Count 222 K/uL (130-400); RDW Standard Deviation 50.7 fL (36.4-46.3); Red Blood Count 2.69 M/uL (4.70-6.10); White Blood Count 3.36 K/ul (4.8-10.8)
[2025-05-08 07:43] LABS: Blood Urea Nitrogen 14.0 mg/dl (6-23)
[2025-05-08 07:54] LABS: Albumin Level 3.5 gm/dl (3.4-5.0); Anion Gap 9.0 (3-11); Bilirubin,Total 0.4 mg/dl (0.2-1.0); Calcium 8.6 mg/dl (8.6-10.3); Carbon Dioxide 22.0 mmol/L (21-32); Chloride 105.0 mmol/L (98-107); Potassium 3.8 mmol/L (3.5-5.1); Sodium 136.0 mmol/L (136-145)
[2025-05-08 07:59] LABS: Alanine Aminotransferase 30.0 U/L (7-52); Albumin Globulin Ratio 1.1 (0.9-2); Alkaline Phosphatase 54.0 U/L (34-104); Creatinine Clr Calc Pharmacy 92.1 ml/min; Globulin 3.2 gm/dl (2.5-4.0); Glucose 109.0 mg/dl (70-99(Fasting)); Total Protein 6.7 gm/dl (6.0-8.3)
--- NOTE | 2025-05-08 14:23 | Hospitalist Progress Note ---
Date of Service May 08, 2025 Assessment & Plan (1) Bacteremia due to Enterococcus: (2) Infection of pacemaker lead wire: (3) Endocarditis of aortic valve: (4) UTI (urinary tract infection): (5) Right hip pain: Plan 79 y/o man admitted with E. 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 Source is probably enterococcus UTI Has reported PCN allergy, however, tolerating ampicillin IV in hospital thus far with no reaction. 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 Colonoscopy 05/07 showed small polyp, not cause of bacteremia. Cardiology consulted regarding pacemaker (placed 2011 post-valve repair for complete heart block). Patient reports Dr. Kahn saw him last night and recommends completing antibiotics, later pacemaker change. He is pacemaker dependent. Multiple follow up blood cultures showed no growth to date. Ordered PICC line and discussed risks/benefits with him, home infusion discussed with case management. Follow-up with infectious disease needed. Anticipated discharge home Saturday once home infusion arranged. Start probiotic Treatment plan: at least 6 weeks of ampicillin and ceftriaxone per infectious disease recommendations. May need termination clerk oral suppressive ABX. Monitoring labs # Enterococcus UTI and elevated PSA - 9.3 May be from enterococcal infection. Duration of planned abx will treat prostatitis if present. Repeat PSA as outpatient after completing antibiotics. 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 Causes some amount of immunosuppression. # A-fib - continue eliquis 5mg BID, metoprolol XL 100mg # HTN - continue amlodipine 10mg daily, metoprolol # asthma not in exacerbation - he's on fluticasone-salmeterol 100 mcg-50mg q12 hours # CAD with bypass surgery 10-15 years ago, stable # History of bioprosthetic AV replacement # History of mitral valve annuloplasty # History of postop complete heart block s/p pacemaker - followed by Dr. Llanes and Dr. Dinero - he's on apixaban and plavix, pravastatin # DVT Prophylaxis: apixaban Medical Complexity: Medical decision making was complex, high risk for clinical deterioration morbidity, or mortality for this encounter. Updated his at bedside 05/08 Admission and Anticipated Discharge Date Admission Date: May 04, 2025 Subjective feeling well. no chest pain or dyspnea no abdominal pain nausea vomiting or diarrhea enquires about going home Physical Exam Physical Exam: General Appearance: Awake, alert, oriented. Appears chronically ill with sarcopenia of extremities. Vital signs: Reviewed past 24h vital signs in EMR, unremarkable. HEENT: Within normal limits. Respiratory: Lungs clear bilaterally. No rhonchi, rales, or wheezes. Cardiovascular: Regular rhythm, systolic murmur. Gastrointestinal: Soft, nontender, nondistended, normal bowel sounds. Extremities: Warm, well perfused. No leg edema. Skin: Warm, dry, no rashes. No stigmata of endocarditis. Neurological: AOx4, normal speech and mentation, winter x 4. Psychiatric: Normal. Results & Data Results & Data Vital Signs (Past 12 Hours) Vital Signs Temp Pulse Pulse Resp BP BP Pulse Ox 05/08/25 12:37 05/08/25 07:45 36.6 C 68 18 162/77 H 96 05/08/25 07:15 83 05/08/25 02:44 36.7 C 78 12 164/71 H 95 Pulse Ox O2 Del Method O2 Del Method 05/08/25 12:37 96 Room Air 05/08/25 07:45 Room Air 05/08/25 07:15 05/08/25 02:44 Room Air PG Care Time/CCT Total # of Minutes Spent Total Time Spent with Patient: Total time spent is greater than 50% in coordination of care (as documented) at patient's floor/unit and/or counseling patient: Coding Level of Care Code 71896 SUB INP/OBS CARE 3/50MIN Diagnoses Bacteremia due to Enterococcus R78.81; B95.2 Infection of pacemaker lead wire T82.7XXA Endocarditis of aortic valve I35.8 UTI (urinary tract infection) N39.0 Right hip pain M25.551
--- NOTE | 2025-05-08 19:02 | XRay Report ---
EXAM: Portable AP chest radiograph TECHNIQUE: AP portable radiograph of the chest was obtained. INDICATION: Shortness of breath Comparison: Chest radiograph May 04, 2025 FINDINGS: LINES and TUBES: Interval placement of a right PICC with tip projecting over the distal SVC. Left-sided cardiac pacemaker with leads projecting over the right atrium and the right ventricle of placement the heart. CARDIOVASCULAR: Cardiac silhouette is stably enlarged in size with redemonstrated postoperative changes of valve replacements. LUNGS/PLEURA: Patchy bibasilar densities have improved since the previous examination. Mild interstitial pulmonary edema appears similar to previous. No significant pleural fluid. No discernible pneumothorax. OSSEOUS/OTHER: No displaced acute osseous process identified. IMPRESSION: Well-positioned right PICC. Mild congestive changes of the cardiovascular system that appear similar to previous. Electronically signed by Amadeo Johnson 05-08-2025 7:02 PM
[2025-05-09 07:44] LABS: Hematocrit (blood only) 23.3 % (42.0-52.0); Hemoglobin 7.9 g/dl (14.0-18.0); Mean Corpuscular Hemoglobin 32.1 pg (25.0-34.0); Mean Corpuscular Volume 94.7 fL (80.0-100.0); Platelet Count 206 K/uL (130-400); RDW Standard Deviation 50.6 fL (36.4-46.3); Red Blood Count 2.46 M/uL (4.70-6.10); White Blood Count 1.87 K/ul (4.8-10.8)
--- NOTE | 2025-05-09 16:46 | Hospitalist Progress Note ---
Date of Service May 09, 2025 Assessment & Plan (1) Bacteremia due to Enterococcus: (2) Infection of pacemaker lead wire: (3) Endocarditis of aortic valve: (4) UTI (urinary tract infection): (5) Right hip pain: Plan 79 y/o man admitted with E. 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 Source is probably enterococcus UTI Has reported PCN allergy, however, tolerating ampicillin IV in hospital thus far with no reaction. 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 Colonoscopy 05/07 showed small polyp, not cause of bacteremia. Cardiology consulted regarding pacemaker (placed 2011 post-valve repair for complete heart block). Patient reports Dr. Kahn saw him last night and recommends completing antibiotics, later pacemaker change. He is pacemaker dependent. Multiple follow up blood cultures showed no growth to date. Ordered PICC line and discussed risks/benefits with him, home infusion discussed with case management. Follow-up with infectious disease needed. Anticipated discharge home Saturday once home infusion arranged. Start probiotic Treatment plan: at least 6 weeks of ampicillin and ceftriaxone per infectious disease recommendations. May need technician terminal and repeater oral suppressive ABX. Monitoring labs -discussed with care coord and wrote Rx for IV antibiotics with home infusion, labs, routine PICC care # abnormal CBC - specimen appears diluted. Recheck ABX labs in AM: CBC with diff, CMP, ESR, CRP # Enterococcus UTI and elevated PSA - 9.3 May be from enterococcal infection. Duration of planned abx will treat prostatitis if present. Repeat PSA as outpatient after completing antibiotics. 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 Causes some amount of immunosuppression. # A-fib - continue eliquis 5mg BID, metoprolol XL 100mg # HTN - continue amlodipine 10mg daily, metoprolol # asthma not in exacerbation - he's on fluticasone-salmeterol 100 mcg-50mg q12 hours # CAD with bypass surgery 10-15 years ago, stable # History of bioprosthetic AV replacement # History of mitral valve annuloplasty # History of postop complete heart block s/p pacemaker - followed by Dr. Llanes and Dr. Dinero - he's on apixaban and plavix, pravastatin # DVT Prophylaxis: apixaban Updated his at bedside 05/09 Admission and Anticipated Discharge Date Admission Date: May 04, 2025 Subjective Doing well, strength getting better doing laps in hallway with No pain or specific complaints Asks repetitive questions Physical Exam Physical Exam: General Appearance: Awake, alert, oriented. Appears chronically ill with sarcopenia of extremities. Walks well in hallway Vital signs: Reviewed past 24h vital signs in EMR, unremarkable. HEENT: Within normal limits. Respiratory: normal WOB. Cardiovascular: Gastrointestinal:ND Extremities: Warm, well perfused. No leg edema. RUE PICC cdi Skin: Warm, dry, no rashes. No stigmata of endocarditis. Neurological: AOx4, normal speech and mentation, winter x 4. Psychiatric: Normal. Results & Data Results & Data Vital Signs (Past 12 Hours) Vital Signs Temp Pulse Pulse Resp BP Pulse Ox Pulse Ox 05/09/25 16:33 66 05/09/25 15:05 36.5 C 78 17 145/73 H 97 05/09/25 12:06 95 05/09/25 11:13 36.6 C 61 17 137/72 95 05/09/25 08:40 05/09/25 07:22 36.4 C L 62 17 169/76 H 96 05/09/25 07:08 60 O2 Del Method O2 Del Method 05/09/25 16:33 05/09/25 15:05 Room Air 05/09/25 12:06 Room Air 05/09/25 11:13 Room Air 05/09/25 08:40 Room Air 05/09/25 07:22 Room Air 05/09/25 07:08 Laboratory Results CBC reviewed, WBC low but sample appears diluted and presumably drawn from PICC PG Care Time/CCT Total # of Minutes Spent Total Time Spent with Patient: Total time spent is greater than 50% in coordination of care (as documented) at patient's floor/unit and/or counseling patient: Coding Level of Care Code 15674 SUB INP/OBS CARE 2/35MIN Diagnoses Bacteremia due to Enterococcus R78.81; B95.2 Infection of pacemaker lead wire T82.7XXA Endocarditis of aortic valve I35.8 UTI (urinary tract infection) N39.0 Right hip pain M25.551
[2025-05-10 06:52] LABS: Hematocrit (blood only) 24.8 % (42.0-52.0); Hemoglobin 8.2 g/dl (14.0-18.0); Immature Granulocytes # (auto) 0.04 K/uL (0.01-0.20); Immature Granulocytes % (auto) 1.7 %; Mean Corpuscular Hemoglobin 31.3 pg (25.0-34.0); Mean Corpuscular Volume 94.7 fL (80.0-100.0); Platelet Count 240 K/uL (130-400); RDW Standard Deviation 50.4 fL (36.4-46.3); Red Blood Count 2.62 M/uL (4.70-6.10); White Blood Count 2.29 K/ul (4.8-10.8)
[2025-05-10 07:26] LABS: Alanine Aminotransferase 48.0 U/L (7-52); Albumin Globulin Ratio 1.1 (0.9-2); Albumin Level 3.3 gm/dl (3.4-5.0); Alkaline Phosphatase 45.0 U/L (34-104); Anion Gap 5.0 (3-11); Bilirubin,Total 0.3 mg/dl (0.2-1.0); Blood Urea Nitrogen 12.0 mg/dl (6-23); Calcium 8.6 mg/dl (8.6-10.3); Carbon Dioxide 25.0 mmol/L (21-32); Chloride 105.0 mmol/L (98-107); Creatinine Clr Calc Pharmacy 93.5 ml/min; Globulin 3.0 gm/dl (2.5-4.0); Glucose 100.0 mg/dl (70-99(Fasting)); Potassium 3.8 mmol/L (3.5-5.1); Sodium 135.0 mmol/L (136-145); Total Protein 6.3 gm/dl (6.0-8.3)
--- NOTE | 2025-05-10 12:52 | Infectious Disease Progress Nt ---
Date of Service May 10, 2025 Assessment & Plan (1) UTI (urinary tract infection): (2) History of aortic valve replacement: Plan Ella Mccracken is a 79-year-old man with history of history of s/p aortic valve replacement 2011, mitral valve annuloplasty, SSS s/p PPM 2011, Afib on Eliquis, CAD s/p CABG, brain aneurysm c/b SDH s/p clipping 2009, psoriatic arthritis on Taltz (ixekizumab), recent admission 04/26-04/27/25 with syncope, ED visit on 05/02/25, who presents to [facility] on 05/04/25 d/t BCx from 05/02 showing E. faecalis bacteremia. ID is consulted for E. faecalis bacteremia. The patient was recently admitted from 04/26-04/27 with fall and syncope episode with head injury. He was found to have a small scalp hematoma. His syncope was felt to be vasovagal. He had his PPM interrogated without issue. The patient was seen in the ED on 05/02/25 for increasing weakness since his hospitalization and had some dysuria. At the time, he was afebrile, WBC 9.48 Hgb 9.5 plt 215 Cr 0.81 LFTs wnl. UA with 21-50 WBCs, 3-5 RBcs, 2+ bacteria, neg nitrite, 1+ LE. He was diagnosed with UTI and discharged to complete a course of ciprofloxacin. His BCx from 05/02 are growing E. faecalis. He is also reporting R hip pain and dizziness. He still has a small amount of dysuria. 05/04 TTE without reported mass/vegetation; abnormal gradient for bioprosthetic AV, severe , moderate mitral annular calcification, severe MS, elevated RVSP, borderline aortic root dilatation. 05/[address] without fracture, showing moderate R hip OA. 05/04 head CTA showing increased size of the L parietal hematoma from prior; high-grade stenosis of the R [employer], aneurysmal clips of the HERNESTO. ID Problem List: # E. faecalis bacteremia, pacemaker lead infection, presumed PVE of the aortic valve # UCx + E. faecalis, possible UTI # History of bioprosthetic AV replacement # History of mitral valve annuloplasty # History of sick sinus syndrome s/p pacemaker # History of psoriatic arthritis on Taltz (ixekizumab) # Reported antibiotic allergy: penicillins (rash) Micro Data: 05/06 BCx x2: NGTD 05/05 BCx x2: NGTD 05/04 BCx x2: E. faecalis in 1/2 sets (2/4 bottles) 05/02 BCx x2: E. faecalis in 1/2 sets (1/4 bottles) 05/02 UCx: E. faecalis Antibiotic Summary: ampicillin (05/06 present) ceftriaxone (05/06 present) prior daptomycin (05/04 05/05) amoxicillin (05/06, 05/06) vancomycin (05/04) Discussion Pt presenting with E. faecalis bacteremia, in the setting of recent syncope (no BCx obtained that admission), and also reporting dysuria, dizziness, and R hip pain. Now confirmed on RORO to have pacemaker lead infection, and although not seen on RORO presumed to have PVE of the aortic valve. 05/04 TTE without reported mass/vegetation; abnormal gradient for bioprosthetic AV, severe , moderate mitral annular calcification, severe MS, elevated RVSP, borderline aortic root dilatation. Given abnormal TTE and history of AVR/PPM, recommended RORO. 05/05 RORO showing small mobile mass on a pacemaker lead in the right atrium; bioprosthetic aortic valve without obvious masses or vegetations but image quality compromised by the structure of the valve; moderate-severe mitral stenosis, calcified mitral annulus without e/o vegetation. Awaiting to hear from cardiology to see whether PPM removal is an option. BCx from 05/02 positive; repeat BCx from 05/04 remain positive. BCx from 05/05 and 05/06 are thus far NGTD. Would continue to monitor closely for any new/worsening focal complaints (e.g., joint pain, back pain) with low threshold to image/evaluate as possible metastatic infection. If ongoing pelvic/hip or back pain, would consider MRI. On 05/06, pt reporting lower back pain with ambulation but none at rest or on palpation. The original source of the E. faecalis is unclear; UA with pyuria and pt with dysuria, and UCx with E. faecalis as well; CT A/P without e/o ascending UTI but does show enlarged enhancing prostate. Pt has not had a C-scope for >10 years, Pt with history of penicillins (rash during childhood, does not think it required hospitalization), and has tolerated a graded challenge of amoxicillin. Therefore, have changed to ampicillin and ceftriaxone. Currently anticipate at least a 6-week course of IV abx. If PPM/lead are not able to be removed, then will need to consider indefinite suppressive PO abx therapy (e.g., amoxicillin) after completion of IV abx. 05/10 No plans for PPM removal. S/p colonoscopy on 05/07 -shows Internal hemorrhoids, Diverticulosis in the sigmoid colon. One small polyp in the sigmoid colon, removed-Path tubular adenoma Worsening Leukopenia. Slight improvement today WBC 1.87--> 2.29. It is unclear if the leukopenia is secondary to ampicillin and ceftriaxone. Bone have been associated with bone marrow suppression though this is uncommon. Onset is usually after 10 to 21 days of therapy we will continue to monitor Recommendations: - Continue ampicillin 2g IV q4h and ceftriaxone 2g IV q12h for E. faecalis PPM infection and presumed PVE for now. With out removal of PPM, treatment is suppressive and not curative - Monitor CBC on ampicillin / ceftriaxone. If any concern that leukopenia is 2/2 this combo, may need to consider alternative txt - Currently anticipate at least a 6-week course of IV antibiotics. Since PPM/lead are not able to be removed at this time, will plan for indefinite suppressive PO abx therapy (e.g., amoxicillin) after completion of IV abx. - F/u BCx from 05/05 and 05/06 until finalized to ensure negative - Continue to monitor closely for any new/worsening focal complaints (e.g., joint pain, back pain) with low threshold to image/evaluate as possible metastatic infection - If ongoing back or pelvic/hip pain, would consider MRI Discussed with hospitalist ID will continue to follow. Chetan Sanders MD, MPH Infectious Disease [facility], [facility] Call [phone] with questions Admission and Anticipated Discharge Date Admission Date: May 04, 2025 Subjective This patient recommendation is based on a telemedicine consult request which was completed asynchronously through chart review and information provided by the primary physician. The patient was not seen or examined today. The evaluation is consultative in nature and all patient care and treatment decisions can either be accepted or rejected by the patient's primary hospital-based treating physician using their own independent medical judgment for their patient. Time Spent Reviewing Chart: 31+ minutes Weekend events noted Afebrile No plans for PPM removal Sp colonoscopy shows Internal hemorrhoids, Diverticulosis in the sigmoid colon. One small polyp in the sigmoid colon, removed-Path tubular adenoma On Amp+ CTX Worsening Leukopenia. Slight improvement today WBC 1.87--> 2.29 Results & Data Vital Signs (Past 12 Hours) Vital Signs Temp Pulse Pulse Resp BP Pulse Ox O2 Del Method 05/10/25 12:06 36.5 C 65 20 138/79 98 Room Air 05/10/25 08:45 Room Air 05/10/25 07:50 36.5 C 74 20 170/83 H 97 Room Air 05/10/25 07:23 69 05/10/25 02:43 36.9 C 66 18 164/72 H 97 Room Air Laboratory Results Laboratory Results - last 48 hr 05/09/25 05/10/25 07:28 05:45 WBC 1.87 L 2.29 L RBC 2.46 L 2.62 L Hgb 7.9 L 8.2 L Hct 23.3 L 24.8 L MCV 94.7 94.7 MCH 32.1 31.3 MCHC 33.9 33.1 RDW Std Deviation 50.6 H 50.4 H RDW Coeff of Andres 14.4 14.6 H Plt Count 206 240 MPV 10.3 10.7 Immature Gran % (Auto) 1.7 Neut % (Auto) 56.3 Lymph % (Auto) 16.6 [place] % (Auto) 14.0 Eos % (Auto) 10.5 Baso % (Auto) 0.9 Neut # (Auto) 1.29 L Lymph # (Auto) 0.38 L [place] # (Auto) 0.32 Eos # (Auto) 0.24 Baso # (Auto) 0.02 Immature Gran # (Auto) 0.04 ESR 46 H Sodium 135 L Potassium 3.8 Chloride 105 Carbon Dioxide 25 Anion Gap 5 BUN 12 Creatinine 0.64 Est Cr Clr Drug Dosing 93.5 eGFR 97.50 BUN/Creatinine Ratio 18.8 Glucose 100 H Calcium 8.6 Total Bilirubin 0.3 AST 39 ALT 48 Alkaline Phosphatase 45 C-Reactive Protein 2.46 H Total Protein 6.3 Albumin 3.3 L Globulin 3.0 Albumin/Globulin Ratio 1.1 Microbiology 05/04/25 11:23 Blood Aerobic Blood Culture - Final No growth in Aerobic bottle after 5 days. 05/04/25 11:23 Blood Anaerobic Blood Culture - Final No growth in Anaerobic bottle after 5 days. 05/06/25 08:48 Blood Aerobic Blood Culture - Preliminary No growth in Aerobic bottle after 48 hours. 05/06/25 08:48 Blood Anaerobic Blood Culture - Preliminary No growth in Anaerobic bottle after 48 hours. 05/06/25 08:48 Blood Aerobic Blood Culture - Preliminary No growth in Aerobic bottle after 48 hours. 05/06/25 08:48 Blood Anaerobic Blood Culture - Preliminary No growth in Anaerobic bottle after 48 hours. 05/05/25 15:43 Blood Aerobic Blood Culture - Preliminary No growth in Aerobic bottle after 48 hours. 05/05/25 15:43 Blood Anaerobic Blood Culture - Preliminary No growth in Anaerobic bottle after 48 hours. 05/05/25 15:43 Blood Aerobic Blood Culture - Preliminary No growth in Aerobic bottle after 48 hours. 05/05/25 15:43 Blood Anaerobic Blood Culture - Preliminary No growth in Anaerobic bottle after 48 hours. 05/04/25 11:23 Blood Aerobic Blood Culture - Final Enterococcus faecalis 05/04/25 11:23 Blood Anaerobic Blood Culture - Final Enterococcus faecalis Diagnostic Findings Chest X-Ray 05/08/25 16:48 EXAM: Portable AP chest radiograph TECHNIQUE: AP portable radiograph of the chest was obtained. INDICATION: Shortness of breath Comparison: Chest radiograph May 04, 2025 FINDINGS: LINES and TUBES: Interval placement of a right PICC with tip projecting over the distal SVC. Left-sided cardiac pacemaker with leads projecting over the right atrium and the right ventricle of placement the heart. CARDIOVASCULAR: Cardiac silhouette is stably enlarged in size with redemonstrated postoperative changes of valve replacements. LUNGS/PLEURA: Patchy bibasilar densities have improved since the previous examination. Mild interstitial pulmonary edema appears similar to previous. No significant pleural fluid. No discernible pneumothorax. OSSEOUS/OTHER: No displaced acute osseous process identified. IMPRESSION: Well-positioned right PICC. Mild congestive changes of the cardiovascular system that appear similar to previous. Electronically signed by Amadeo Johnson 05-08-2025 7:02 PM 05/05 RORO Small mobile mass on a pacemaker lead in the right atrium; bioprosthetic aortic valve without obvious masses or vegetations but image quality compromised by the structure of the valve; moderate-severe mitral stenosis, calcified mitral annulus without e/o vegetation 05/04 TTE without reported mass/vegetation; abnormal gradient for bioprosthetic AV, severe , moderate mitral annular calcification, severe MS, elevated RVSP, borderline aortic root dilatation 05/04 head CTA 1. Increased size of the left parietal scalp hematoma. 2. High-grade stenosis of the right posterior cerebral artery. 3. 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 05/[address] 1. No fractures within the right hip. 2. Moderate right hip osteoarthritis. 05/04 CT A/P w/ contrast 1. Stable exam compared to the study from 04/26/2025. 2. No acute intra-abdominal or intrapelvic abnormality. 3. Enlarged heterogeneously enhancing prostate. Correlate with PSA. 4. Hepatic steatosis. 5. Small pleural effusions. 6. Additional findings as above. 05/04 CT A/P with contrast without acute intraabdominal abnormality; enlarged enhancing prostate. Medications Administered Home Medications Medication Instructions Recorded Confirmed Last Taken cyanocobalamin (vitamin B-12) 1,000 mcg PO QAM 11/08/20 05/04/25 04/12/25 1,000 mcg tablet (Vitamin B-12) pravastatin 10 mg tablet 10 mg PO DAILY #90 tabs 06/19/24 05/04/25 12/15/24 09:00 clopidogrel 75 mg tablet 75 mg PO QAM 12/16/24 05/04/25 04/12/25 metoprolol succinate 100 mg 100 mg PO BID #180 tabs 01/27/25 05/04/25 04/12/25 tablet,extended release 24 hr Taltz Autoinjector 80 mg/mL 80 mg subcut Q28D #1 mL 02/18/25 05/04/25 Unknown subcutaneous (ixekizumab) apixaban 5 mg tablet (Eliquis) 5 mg PO BID #180 tabs 02/23/25 05/04/25 04/12/25 albuterol sulfate 90 mcg/actuation 2 puff inhalation Q4 PRN Shortness 04/12/25 05/04/25 Unknown aerosol inhaler Of Breath Or Wheezing amlodipine 10 mg tablet 10 mg PO QAM 04/26/25 05/04/25 Unknown fluticasone 250 mcg-salmeterol 50 1 inh inhalation BID #60 ea 04/29/25 05/04/25 Unknown mcg/dose blistr powdr for inhalation (Wixela Inhub) ciprofloxacin HCl 500 mg tablet 500 mg PO Q12H #20 tabs 05/02/25 05/04/25 Unknown Active Medications Generic Name Dose Route Start Last Admin Trade Name Ambrose PRN Reason Stop Dose Admin Amlodipine Besylate 10 mg 05/05/25 09:00 05/10/25 08:41 Amlodipine Besylate 5 Mg Tab PO 06/04/25 08:59 10 mg QAM EMILE Administration Clopidogrel Bisulfate 75 mg 05/05/25 09:00 05/10/25 08:41 Clopidogrel Bisulfate 75 Mg Tab PO 06/04/25 08:59 75 mg QAM EMILE Administration Cyanocobalamin 1,000 mcg 05/05/25 09:00 05/10/25 08:40 Cyanocobalamin (B-12) 500 Mcg Tablet PO 06/04/25 08:59 1,000 mcg QAM EMILE Administration Fluticasone/Vilanterol 1 puffs 05/05/25 09:00 05/10/25 08:40 Fluticasone/Vilanterol 200/25mcg 14 Puffs/Inhaler INH 06/04/25 08:59 1 puffs DAILY EMILE Administration Protocol Heparin Sodium (Beef Lung) 5 ml 05/08/25 16:51 05/09/25 10:09 Heparin 10 Unit/Ml 5 Ml Flush FLUSH 06/07/25 16:50 5 ml PRN PRN Administration Flush Ampicillin Sodium 2,000 mg/ 100 mls @ 200 mls/hr 05/06/25 16:00 05/10/25 12:47 Sodium Chloride IV 06/17/25 15:59 Infused Q4H EMILE Infusion Ceftriaxone Sodium 2,000 mg in 50 mls @ 100 mls/hr 05/06/25 16:30 05/10/25 05:21 Rocephin IV 06/17/25 16:29 Infused Q12H EMILE Infusion Metoprolol Succinate 100 mg 05/04/25 21:00 05/10/25 08:40 Metoprolol Succ 50mg Ext Rel Tab PO 06/03/25 20:59 100 mg BID EMILE Administration Pravastatin Sodium 10 mg 05/05/25 09:00 05/10/25 08:40 Pravastatin Sod 10 Mg Tab PO 06/04/25 08:59 10 mg DAILY EMILE Administration
--- NOTE | 2025-05-10 15:51 | Hospitalist Progress Note ---
Date of Service May 10, 2025 Assessment & Plan (1) Bacteremia due to Enterococcus: (2) Infection of pacemaker lead wire: (3) Endocarditis of aortic valve: (4) UTI (urinary tract infection): (5) Right hip pain: Plan 79 y/o man admitted with E. 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 Source is probably enterococcus UTI Has reported PCN allergy, however, tolerating ampicillin IV in hospital thus far with no reaction. 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 Colonoscopy 05/07 showed small polyp, not cause of bacteremia. Cardiology consulted regarding pacemaker (placed 2011 post-valve repair for complete heart block). Patient reports Dr. Kahn saw him and recommends completing antibiotics, later pacemaker change. He is pacemaker dependent. Multiple follow up blood cultures showed no growth to date. at least 6 weeks of ampicillin and ceftriaxone per infectious disease recommendations. May need correction oral suppressive ABX. Monitoring labs. I already wrote home infusion Rx for these abx and labs has worsening leukopenia - discussed with Dr. Sanders, should stay here for monitoring. If continues worsening and related to IV ABX will need alternate regimen I reviewed medlist again and I do not see any other culprits Ordered qAM CBC with diff Once this issue is resolved or clarified he's suitable for dc home with home infusion Clarified with ID, he'll follow up with [facility] # Enterococcus UTI and elevated PSA - 9.3 May be from enterococcal infection. Duration of planned abx will treat prostatitis if present. Repeat PSA as outpatient after completing antibiotics. If still significantly elevated, refer to urologist # previous syncopal event - may be related to infection above CTA negative for rupture aneurysm CTA found stenosis high grade stenosis in right posterior cerebral artery patient has subarachnoid hemorrhage 10-15 years from brain aneurysm his CTA on 05/04 show clips of anterior communicating artery # stable hematoma top of head, wound covered by eschar - no evidence of infection # acute right hip pain, denied hx of trauma, or hip repair his pacemaker is not compatible with our MRI machine his CT hip show hip arthritis monitor carefully for any s/sx septic arthritis of hip walking well last several days and no c/o pain # b/l carotid stenosis, carotid stent on plavix R TCAR procedure on December 2024 # psoriatic arthritis, he's on Taltz auto-injector. Causes some amount of immunosuppression. # A-fib - continue eliquis 5mg BID, metoprolol XL 100mg # HTN - continue amlodipine 10mg daily, metoprolol # asthma not in exacerbation - he's on fluticasone-salmeterol 100 mcg-50mg q12 hours # CAD with bypass surgery 10-15 years ago, stable # History of bioprosthetic AV replacement # History of mitral valve annuloplasty # History of postop complete heart block s/p pacemaker - followed by Dr. Llanes and Dr. Dinero - he's on apixaban and plavix, pravastatin # DVT Prophylaxis: apixaban Updated his at bedside 05/09 Admission and Anticipated Discharge Date Admission Date: May 04, 2025 Subjective says he is feeling well and eager to get home strength is improving and he is walking greater distances no chest pain or shortness of breath Physical Exam Physical Exam: General Appearance: Awake, alert, oriented. sitting up in the chair Vital signs: Reviewed past 24h vital signs in EMR, unremarkable. HEENT: Within normal limits. Respiratory: normal WOB. clear to auscultation bilaterally Cardiovascular: regular with systolic murmur, no JVD Gastrointestinal:ND Extremities: Warm, well perfused. No leg edema. RUE PICC cdi Skin: Warm, dry, no rashes. No stigmata of endocarditis. Neurological: AOx4, forgetful, winter x 4. Psychiatric: Normal. Results & Data Results & Data Vital Signs (Past 12 Hours) Vital Signs Temp Pulse Pulse Resp BP Pulse Ox O2 Del Method 05/10/25 14:39 65 05/10/25 12:06 36.5 C 65 20 138/79 98 Room Air 05/10/25 08:45 Room Air 05/10/25 07:50 36.5 C 74 20 170/83 H 97 Room Air 05/10/25 07:23 69 Laboratory Results white blood count has dropped to 2.3 with an ANC of 1.29 he tends to run chronically low with a white count often in the fours however he had progressive leukopenia over this weekend hemoglobin 8.2 which is stable seep RP increased from 1.54 to-2.46 sodium 135, creatinine 0.6, LFTs unremarkable PG Care Time/CCT Total # of Minutes Spent Total Time Spent with Patient: Total time spent is greater than 50% in coordination of care (as documented) at patient's floor/unit and/or counseling patient: Coding Level of Care Code 78629 SUB INP/OBS CARE 2/35MIN Diagnoses Bacteremia due to Enterococcus R78.81; B95.2 Infection of pacemaker lead wire T82.7XXA Endocarditis of aortic valve I35.8 UTI (urinary tract infection) N39.0 Right hip pain M25.551
--- NOTE | 2025-05-10 17:42 | Hospitalist Progress Note ---
Date of Service May 10, 2025 Assessment & Plan (1) Bacteremia due to Enterococcus: (2) Infection of pacemaker lead wire: (3) Endocarditis of aortic valve: (4) UTI (urinary tract infection): (5) Right hip pain: Plan 79 y/o man admitted with E. 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 Source is probably enterococcus UTI Has reported PCN allergy, however, tolerating ampicillin IV in hospital thus far with no reaction. 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 Colonoscopy 05/07 showed small polyp, not cause of bacteremia. Cardiology consulted regarding pacemaker (placed 2011 post-valve repair for complete heart block). Patient reports Dr. Kahn saw him and recommends completing antibiotics, later pacemaker change. He is pacemaker dependent. Multiple follow up blood cultures showed no growth to date. at least 6 weeks of ampicillin and ceftriaxone per infectious disease recommendations. May need jail oral suppressive ABX. Monitoring labs. I already wrote home infusion Rx for these abx and labs has worsening leukopenia - discussed with Dr. Sanders, should stay here for monitoring. If continues worsening and related to IV ABX will need alternate regimen I reviewed medlist again and I do not see any other culprits Ordered qAM CBC with diff Once this issue is resolved or clarified he's suitable for dc home with home infusion Clarified with ID, he'll follow up with [facility] # Enterococcus UTI and elevated PSA - 9.3 May be from enterococcal infection. Duration of planned abx will treat prostatitis if present. Repeat PSA as outpatient after completing antibiotics. If still significantly elevated, refer to urologist # previous syncopal event - may be related to infection above CTA negative for rupture aneurysm CTA found stenosis high grade stenosis in right posterior cerebral artery patient has subarachnoid hemorrhage 10-15 years from brain aneurysm his CTA on 05/04 show clips of anterior communicating artery # stable hematoma top of head, wound covered by eschar - no evidence of infection # acute right hip pain, denied hx of trauma, or hip repair his pacemaker is not compatible with our MRI machine his CT hip show hip arthritis monitor carefully for any s/sx septic arthritis of hip walking well last several days and no c/o pain # b/l carotid stenosis, carotid stent on plavix R TCAR procedure on December 2024 # psoriatic arthritis, he's on Taltz auto-injector. Causes some amount of immunosuppression. # A-fib - continue eliquis 5mg BID, metoprolol XL 100mg # HTN - continue amlodipine 10mg daily, metoprolol # asthma not in exacerbation - he's on fluticasone-salmeterol 100 mcg-50mg q12 hours # CAD with bypass surgery 10-15 years ago, stable # History of bioprosthetic AV replacement # History of mitral valve annuloplasty # History of postop complete heart block s/p pacemaker - followed by Dr. Llanes and Dr. Dinero - he's on apixaban and plavix, pravastatin ADDENDUM: severe malnutrition - significant recent weight loss, sarcopenia, hypoalbuminemia. RD consulting, providing high protein snacks/meals # DVT Prophylaxis: apixaban Updated his at bedside 05/09 Admission and Anticipated Discharge Date Admission Date: May 04, 2025 Results & Data Results & Data Vital Signs (Past 12 Hours) Vital Signs Temp Pulse Pulse Resp BP Pulse Ox Pulse Ox 05/10/25 15:55 36.7 C 74 16 124/67 98 05/10/25 14:39 65 05/10/25 12:06 36.5 C 65 20 138/79 98 05/10/25 12:00 98 05/10/25 08:45 05/10/25 07:50 36.5 C 74 20 170/83 H 97 05/10/25 07:23 69 O2 Del Method O2 Del Method 05/10/25 15:55 Room Air 05/10/25 14:39 05/10/25 12:06 Room Air 05/10/25 12:00 Room Air 05/10/25 08:45 Room Air 05/10/25 07:50 Room Air 05/10/25 07:23 PG Care Time/CCT Total # of Minutes Spent Total Time Spent with Patient: Total time spent is greater than 50% in coordination of care (as documented) at patient's floor/unit and/or counseling patient: Coding Level of Care Code None Diagnoses Bacteremia due to Enterococcus R78.81; B95.2 Infection of pacemaker lead wire T82.7XXA Endocarditis of aortic valve I35.8 UTI (urinary tract infection) N39.0 Right hip pain M25.551
[2025-05-11 06:31] LABS: Hematocrit (blood only) 24.6 % (42.0-52.0); Hemoglobin 8.5 g/dl (14.0-18.0); Immature Granulocytes # (auto) 0.04 K/uL (0.01-0.20); Immature Granulocytes % (auto) 1.4 %; Mean Corpuscular Hemoglobin 32.2 pg (25.0-34.0); Mean Corpuscular Volume 93.2 fL (80.0-100.0); Platelet Count 250 K/uL (130-400); RDW Standard Deviation 49.0 fL (36.4-46.3); Red Blood Count 2.64 M/uL (4.70-6.10); White Blood Count 2.81 K/ul (4.8-10.8)
--- NOTE | 2025-05-11 10:30 | Infectious Disease Progress Nt ---
Date of Service May 11, 2025 Assessment & Plan (1) UTI (urinary tract infection): (2) History of aortic valve replacement: Plan Ella Mccracken is a 79-year-old man with history of history of s/p aortic valve replacement 2011, mitral valve annuloplasty, SSS s/p PPM 2011, Afib on Eliquis, CAD s/p CABG, brain aneurysm c/b SDH s/p clipping 2009, psoriatic arthritis on Taltz (ixekizumab), recent admission 04/26-04/27/25 with syncope, ED visit on 05/02/25, who presents to [facility] on 05/04/25 d/t BCx from 05/02 showing E. faecalis bacteremia. ID is consulted for E. faecalis bacteremia. The patient was recently admitted from 04/26-04/27 with fall and syncope episode with head injury. He was found to have a small scalp hematoma. His syncope was felt to be vasovagal. He had his PPM interrogated without issue. The patient was seen in the ED on 05/02/25 for increasing weakness since his hospitalization and had some dysuria. At the time, he was afebrile, WBC 9.48 Hgb 9.5 plt 215 Cr 0.81 LFTs wnl. UA with 21-50 WBCs, 3-5 RBcs, 2+ bacteria, neg nitrite, 1+ LE. He was diagnosed with UTI and discharged to complete a course of ciprofloxacin. His BCx from 05/02 are growing E. faecalis. He is also reporting R hip pain and dizziness. He still has a small amount of dysuria. 05/04 TTE without reported mass/vegetation; abnormal gradient for bioprosthetic AV, severe , moderate mitral annular calcification, severe MS, elevated RVSP, borderline aortic root dilatation. 05/[address] without fracture, showing moderate R hip OA. 05/04 head CTA showing increased size of the L parietal hematoma from prior; high-grade stenosis of the R [employer]NEY[employer], aneurysmal clips of the HERNESTO. ID Problem List: # E. faecalis bacteremia, pacemaker lead infection, presumed PVE of the aortic valve # UCx + E. faecalis, possible UTI # History of bioprosthetic AV replacement # History of mitral valve annuloplasty # History of sick sinus syndrome s/p pacemaker # History of psoriatic arthritis on Taltz (ixekizumab) # Reported antibiotic allergy: penicillins (rash) Micro Data: 05/06 BCx x2: NGTD 05/05 BCx x2: NGTD 05/04 BCx x2: E. faecalis in 1/2 sets (2/4 bottles) 05/02 BCx x2: E. faecalis in 1/2 sets (1/4 bottles) 05/02 UCx: E. faecalis Antibiotic Summary: ampicillin (05/06 present) ceftriaxone (05/06 present) prior daptomycin (05/04 05/05) amoxicillin (05/06, 05/06) vancomycin (05/04) Discussion Pt presenting with E. faecalis bacteremia, in the setting of recent syncope (no BCx obtained that admission), and also reporting dysuria, dizziness, and R hip pain. Now confirmed on RORO to have pacemaker lead infection, and although not seen on RORO presumed to have PVE of the aortic valve. 05/04 TTE without reported mass/vegetation; abnormal gradient for bioprosthetic AV, severe , moderate mitral annular calcification, severe MS, elevated RVSP, borderline aortic root dilatation. Given abnormal TTE and history of AVR/PPM, recommended RORO. 05/05 RORO showing small mobile mass on a pacemaker lead in the right atrium; bioprosthetic aortic valve without obvious masses or vegetations but image quality compromised by the structure of the valve; moderate-severe mitral stenosis, calcified mitral annulus without e/o vegetation. Awaiting to hear from cardiology to see whether PPM removal is an option. BCx from 05/02 positive; repeat BCx from 05/04 remain positive. BCx from 05/05 and 05/06 are thus far NGTD. Would continue to monitor closely for any new/worsening focal complaints (e.g., joint pain, back pain) with low threshold to image/evaluate as possible metastatic infection. If ongoing pelvic/hip or back pain, would consider MRI. On 05/06, pt reporting lower back pain with ambulation but none at rest or on palpation. The original source of the E. faecalis is unclear; UA with pyuria and pt with dysuria, and UCx with E. faecalis as well; CT A/P without e/o ascending UTI but does show enlarged enhancing prostate. Pt has not had a C-scope for >10 years, Pt with history of penicillins (rash during childhood, does not think it required hospitalization), and has tolerated a graded challenge of amoxicillin. Therefore, have changed to ampicillin and ceftriaxone. Currently anticipate at least a 6-week course of IV abx. If PPM/lead are not able to be removed, then will need to consider indefinite suppressive PO abx therapy (e.g., amoxicillin) after completion of IV abx. 05/10 No plans for PPM removal. S/p colonoscopy on 05/07 -shows Internal hemorrhoids, Diverticulosis in the sigmoid colon. One small polyp in the sigmoid colon, removed-Path tubular adenoma Worsening Leukopenia. Slight improvement today WBC 1.87--> 2.29. It is unclear if the leukopenia is secondary to ampicillin and ceftriaxone. Bone have been associated with bone marrow suppression though this is uncommon. Onset is usually after 10 to 21 days of therapy we will continue to monitor 05/11 WBC 2.81. Per chart review has had on and off leukopenia since 2017 WBC mostly around 4.0. He is scheduled for dc today pending final plan He offer no complains. Cotinue amp+ ctx for E. faecalis PPM infection and presumed PVE for now. With out removal of PPM, treatment is suppressive and not curative Recommendations: - Continue ampicillin but on discharge change from 2g IV q4h to continuous dosing at ampicillin 12 g IV q24 hours CONTINUOUS dosing -Continue ceftriaxone 2g IV q12h - Monitor CBC on ampicillin / ceftriaxone. If any concern that leukopenia is 2/2 this combo, may need to consider alternative txt - Currently anticipate at least a 6-week course of IV antibiotics. Since PPM/le ad are not able to be removed at this time, will plan for indefinite suppressive PO abx therapy (e.g., amoxicillin) after completion of IV abx. - F/u BCx from 05/05 and 05/06 to ensure negative - Continue to monitor closely for any new/worsening focal complaints (e.g., joint pain, back pain) with low threshold to image/evaluate as possible metastatic infection Discussed with hospitalist SEE OPAT INSTRUCTIONS BELOW Outpatient Discharge summary, Discharging Physician please order the following on discharge: Diagnosis: E. faecalis bacteremia, pacemaker lead infection, presumed PVE of the aortic valve Organism: Enterococcus Feacalis Antibiotic: (dose and frequency) Ampicillin 12 G IV q24 hours CONTINUOUS and Ceftriaxone 2 g IV q12h Start of therapy: 05/05/25 End of therapy: 06/16/25 ( after IV abx completed, plan for PO suppression indefinitely if PPM/Leads remain in place) Labs should be faxed to ID office attention Jonna Mckeon [facility] [phone] Labs needed and frequency weekly CBC with diff, BMP, LFT, esr, crp Please follow up with [facility] in outpatient clinic Clinic Address [address] [place] [address] Office P) [phone] Appointment-time frame 3-4 weeks ID will sign off Chetan Sanders MD, MPH Infectious Disease [facility], [facility] Call [phone] with questions Admission and Anticipated Discharge Date Admission Date: May 04, 2025 Subjective Subsequent visit was provided via telemedicine using two-way real-time interactive telecommunication between the patient and the telemedicine provider. For the duration of the visit, the provider was performing the assessment from a different facility than the patient. This includesuse of bluetooth stethoscope forauscultationperformed by the telepresenter that the telemedic ine provider can hear if described in the physical exam. Car Pusher contact information: Please call [facility] Call Center [phone]. (Phone Number For Physician Use Only) After establishing a telemedicine visit, patient was: Patient was verified with two unique identifiers and Gave permission to continue telehealth session Time Spent with Patient: Subsequent => 35 min He is scheduled for discharge today WBC is 2.81 He feels well. Walking in his room. Denies fever, chills, sweats, hip pain , nausea, vomiting or diarrhea. Physical Exam Physical Exam: General: NAD. HEENT: Anicteric sclera, MMM Resp: Respirations nonlabored. Chest: PPM in place, not TTP at site. Skin: No rashes or lesions on exposed skine Neuro: AAO times 2 Psych: Cooperative, Pleasant, normal mood. Results & Data Vital Signs (Past 12 Hours) Vital Signs Temp Pulse Pulse Resp BP Pulse Ox O2 Del Method 05/11/25 10:26 36.4 C L 70 16 147/79 H 97 05/11/25 10:23 Room Air 05/11/25 07:38 36.4 C L 70 16 147/79 H 97 Room Air 05/11/25 07:16 67 05/11/25 04:09 36.4 C L 69 20 144/78 H 96 Room Air 05/11/25 00:43 67 05/10/25 23:15 36.6 C 68 20 128/68 95 Room Air Laboratory Results 05/05/25 15:43 Aerobic Blood Culture - Final Blood No growth in Aerobic bottle after 5 days. Anaerobic Blood Culture - Final No growth in Anaerobic bottle after 5 days. 05/05/25 15:43 Aerobic Blood Culture - Final Blood No growth in Aerobic bottle after 5 days. Anaerobic Blood Culture - Final No growth in Anaerobic bottle after 5 days. 05/11/25 05:57 WBC 2.81 L RBC 2.64 L Hgb 8.5 L Hct 24.6 L MCV 93.2 MCH 32.2 MCHC 34.6 RDW Std Deviation 49.0 H RDW Coeff of Andres 14.3 Plt Count 250 MPV 10.5 Immature Gran % (Auto) 1.4 Neut % (Auto) 60.5 Lymph % (Auto) 14.9 [place] % (Auto) 15.7 Eos % (Auto) 6.8 Baso % (Auto) 0.7 Neut # (Auto) 1.70 Lymph # (Auto) 0.42 L [place] # (Auto) 0.44 Eos # (Auto) 0.19 Baso # (Auto) 0.02 Immature Gran # (Auto) 0.04 Diagnostic Findings Chest X-Ray 05/08/25 16:48 EXAM: Portable AP chest radiograph TECHNIQUE: AP portable radiograph of the chest was obtained. INDICATION: Shortness of breath Comparison: Chest radiograph May 04, 2025 FINDINGS: LINES and TUBES: Interval placement of a right PICC with tip projecting over the distal SVC. Left-sided cardiac pacemaker with leads projecting over the right atrium and the right ventricle of placement the heart. CARDIOVASCULAR: Cardiac silhouette is stably enlarged in size with redemonstrated postoperative changes of valve replacements. LUNGS/PLEURA: Patchy bibasilar densities have improved since the previous examination. Mild interstitial pulmonary edema appears similar to previous. No significant pleural fluid. No discernible pneumothorax. OSSEOUS/OTHER: No displaced acute osseous process identified. IMPRESSION: Well-positioned right PICC. Mild congestive changes of the cardiovascular system that appear similar to previous. Electronically signed by Amadeo Johnson 05-08-2025 7:02 PM Medications Administered Home Medications Medication Instructions Recorded Confirmed Last Taken cyanocobalamin (vitamin B-12) 1,000 mcg PO QAM 11/08/20 05/04/25 04/12/25 1,000 mcg tablet (Vitamin B-12) pravastatin 10 mg tablet 10 mg PO DAILY #90 tabs 06/19/24 05/04/25 12/15/24 09:00 clopidogrel 75 mg tablet 75 mg PO QAM 12/16/24 05/04/25 04/12/25 metoprolol succinate 100 mg 100 mg PO BID #180 tabs 01/27/25 05/04/25 04/12/25 tablet,extended release 24 hr Taltz Autoinjector 80 mg/mL 80 mg subcut Q28D #1 mL 02/18/25 05/04/25 Unknown subcutaneous (ixekizumab) apixaban 5 mg tablet (Eliquis) 5 mg PO BID #180 tabs 02/23/25 05/04/25 04/12/25 albuterol sulfate 90 mcg/actuation 2 puff inhalation Q4 PRN Shortness 04/12/25 05/04/25 Unknown aerosol inhaler Of Breath Or Wheezing amlodipine 10 mg tablet 10 mg PO QAM 04/26/25 05/04/25 Unknown fluticasone 250 mcg-salmeterol 50 1 inh inhalation BID #60 ea 04/29/25 05/04/25 Unknown mcg/dose blistr powdr for inhalation (Wixela Inhub) ciprofloxacin HCl 500 mg tablet 500 mg PO Q12H #20 tabs 05/02/25 05/04/25 Unknown Active Medications Generic Name Dose Route Start Last Admin Trade Name Freq PRN Reason Stop Dose Admin Amlodipine Besylate 10 mg 05/05/25 09:00 05/11/25 08:17 Amlodipine Besylate 5 Mg Tab PO 06/04/25 08:59 10 mg QAM EMILE Administration Clopidogrel Bisulfate 75 mg 05/05/25 09:00 05/11/25 08:17 Clopidogrel Bisulfate 75 Mg Tab PO 06/04/25 08:59 75 mg QAM EMILE Administration Cyanocobalamin 1,000 mcg 05/05/25 09:00 05/11/25 08:17 Cyanocobalamin (B-12) 500 Mcg Tablet PO 06/04/25 08:59 1,000 mcg QAM EMILE Administration Fluticasone/Vilanterol 1 puffs 05/05/25 09:00 05/11/25 08:16 Fluticasone/Vilanterol 200/25mcg 14 Puffs/Inhaler INH 06/04/25 08:59 1 puffs DAILY EMILE Administration Protocol Heparin Sodium (Beef Lung) 5 ml 05/08/25 16:51 05/09/25 10:09 Heparin 10 Unit/Ml 5 Ml Flush FLUSH 06/07/25 16:50 5 ml PRN PRN Administration Flush Ampicillin Sodium 2,000 mg/ 100 mls @ 200 mls/hr 05/06/25 16:00 05/11/25 08:49 Sodium Chloride IV 06/17/25 15:59 Infused Q4H EMILE Infusion Ceftriaxone Sodium 2,000 mg in 50 mls @ 100 mls/hr 05/06/25 16:30 05/11/25 04:36 Rocephin IV 06/17/25 16:29 Infused Q12H EMILE Infusion Metoprolol Succinate 100 mg 05/04/25 21:00 05/11/25 08:17 Metoprolol Succ 50mg Ext Rel Tab PO 06/03/25 20:59 100 mg BID EMILE Administration Pravastatin Sodium 10 mg 05/05/25 09:00 05/11/25 08:17 Pravastatin Sod 10 Mg Tab PO 06/04/25 08:59 10 mg DAILY EMILE Administration
--- NOTE | 2025-05-11 22:03 | Hospitalist Progress Note ---
Date of Service May 11, 2025 Assessment & Plan (1) Bacteremia due to Enterococcus: (2) Infection of pacemaker lead wire: (3) Endocarditis of aortic valve: (4) UTI (urinary tract infection): (5) Right hip pain: Plan 79 y/o man admitted with E. 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 Source is probably enterococcus UTI Has reported PCN allergy, however, tolerating ampicillin IV in hospital thus far with no reaction. 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 Colonoscopy 05/07 showed small polyp, not cause of bacteremia. Cardiology consulted regarding pacemaker (placed 2011 post-valve repair for complete heart block). Patient reports Dr. Kahn saw him and recommends completing antibiotics, later pacemaker change. He is pacemaker dependent. Multiple follow up blood cultures showed no growth to date. at least 6 weeks of ampicillin and ceftriaxone per infectious disease recommendations. May need [facility] oral suppressive ABX. Monitoring labs. I already wrote home infusion Rx for these abx and labs has worsening leukopenia - discussed with Dr. Sanders, should stay here for monitoring. If continues worsening and related to IV ABX will need alternate regimen I reviewed medlist again and I do not see any other culprits Ordered qAM CBC with diff Once this issue is resolved or clarified he's suitable for dc home with home infusion Clarified with ID, he'll follow up with [facility] # Enterococcus UTI and elevated PSA - 9.3 May be from enterococcal infection. Duration of planned abx will treat prostatitis if present. Repeat PSA as outpatient after completing antibiotics. If still significantly elevated, refer to urologist # previous syncopal event - may be related to infection above CTA negative for rupture aneurysm CTA found stenosis high grade stenosis in right posterior cerebral artery patient has subarachnoid hemorrhage 10-15 years from brain aneurysm his CTA on 05/04 show clips of anterior communicating artery # stable hematoma top of head, wound covered by eschar - no evidence of infection # acute right hip pain, denied hx of trauma, or hip repair his pacemaker is not compatible with our MRI machine his CT hip show hip arthritis monitor carefully for any s/sx septic arthritis of hip walking well last several days and no c/o pain # b/l carotid stenosis, carotid stent on plavix R TCAR procedure on December 2024 # psoriatic arthritis, he's on Taltz auto-injector. Causes some amount of immunosuppression. # A-fib - continue eliquis 5mg BID, metoprolol XL 100mg # HTN - continue amlodipine 10mg daily, metoprolol # asthma not in exacerbation - he's on fluticasone-salmeterol 100 mcg-50mg q12 hours # CAD with bypass surgery 10-15 years ago, stable # History of bioprosthetic AV replacement # History of mitral valve annuloplasty # History of postop complete heart block s/p pacemaker - followed by Dr. Llanes and Dr. Dinero - he's on apixaban and plavix, pravastatin ADDENDUM: severe malnutrition - significant recent weight loss, sarcopenia, hypoalbuminemia. RD consulting, providing high protein snacks/meals # DVT Prophylaxis: apixaban Updated his at bedside 05/09 Admission and Anticipated Discharge Date Admission Date: May 04, 2025 Subjective "I feel fine, Doc. I wanna go home. I got the PICC line in my right arm. The Sample Grader Sarita told me that she got my antibiotics all arranged for me to get at my home. Now, I am just waiting for tomorrow morning, 10:00am, and I am going home. Thanks for everything, Doc. Everyone at [facility] was great to me." Review of Systems Constitutional: Negative for antecedent/coincident fevers, chills, diaphoresis, cough, wheeze, sore throat, hemoptysis, chest pains, palpitations, pleurisy, nausea, vomiting, diarrhea, abdominal pain, pelvic pain, hematemesis, hematochezia, melena, hematuria, dysuria, frequency, urgency, headaches, dizziness, lightheadedness, visual changes, hearing changes, weakness, falls, syncope, trauma, travel history, sick contacts, or food/drug ingestions novel or new. All other review of systems are reported as negative by the patient on 05/11/2025. Physical Exam Constitutional: General: Comfortable, cooperative and coherent. Wide awake and alert. Not confused, lethargic, or obtunded. Patient speaks in complete, fluent, and articulate sentences, without pause, interruption, cough, or wheeze. HEENT: NC/AT. EOMI. PERRL. No diplopia, homonymous hemianopsia, marmolejo perior/inferior/nasal/temporal quadrantanopia, nystagmus, gaze paresis, anisocoria, miosis, mydriasis, chemosis, hyphema, scleral injection, conjunctivitis, pterygium, facial droop, dysarthria, or pronator drift. No otorrhea. No rhinorrhea. Neck: Supple, no stridor, bruit, or goiter. Jugular venous pressure 3 cm above the sternal angle of [place], which is typically 5 cm above the right atrium. Lymph: No anterior/posterior cervical lymphadenopathy, supraclavicular/infraclavicular lymphadenopathy, axilla/epitrochlear/inguinal lymphadenopathy. Chest: Symmetric rise and fall with respirations. Non-tender to palpation. Heart: RRR, S1 and S2. No S3 or S4 summation gallop. No tripartite friction rub. No murmur. Lungs: Clear to auscultation and percussion. No audible expiratory wheeze, egophony, pectoriloquy, increase in tactile fremitus, or flatness/dullness to percussion at the bases. Abd: Soft, non-tender, non-distended. Bowel sounds auscultated in all 4 quadrants. No rebound, guarding, Corral's sign, or organomegaly. Ext: No clubbing, cyanosis, or edema. 2+ pedal pulses bilaterally. PICC in RUE in situ since insertion date 05/08/2025, with no surrounding erythema, edema, induration, warmth, tenderness, crepitus, fluctuance, discharge (sanguineous, serous, suppurative), lymphangitic streaking, ulcer(ation), or malodor on 05/11/2025. Skin: No decubitus ulcer or enanthem or exanthem. Neuro: Alert and oriented in regards to person, place, time, and situation. No tremors, tics, or myoclonus. DTR+. 5/5 motor strength in all 4 extremities, both proximally and distally. Urology: No vallejo catheter. No purewick. No urethral discharge. Results & Data Results & Data Vital Signs (Past 12 Hours) Vital Signs Temp Pulse Resp BP BP Pulse Ox O2 Del Method 05/11/25 19:50 36.5 C 69 17 144/81 H 97 Room Air 05/11/25 16:01 36.6 C 81 16 139/79 95 Room Air 05/11/25 11:14 36.5 C 89 17 106/69 98 Room Air 05/11/25 10:26 36.4 C L 70 16 147/79 H 97 05/11/25 10:23 Room Air Laboratory Results Abnormal lab results 05/11/25 Range/Units 05:57 WBC 2.81 L (4.8-10.8) K/ul RBC 2.64 L (4.70-6.10) M/uL Hgb 8.5 L (14.0-18.0) g/dl Hct 24.6 L (42.0-52.0) % RDW Std Deviation 49.0 H (36.4-46.3) fL Lymph # (Auto) 0.42 L (1.20-3.40) K/uL PG Care Time/CCT Total # of Minutes Spent Total Time Spent with Patient: Total time spent is greater than 50% in coordination of care (as documented) at patient's floor/unit and/or counseling patient: Coding Level of Care Code 06107 SUB INP/OBS CARE 2/35MIN Diagnoses Bacteremia due to Enterococcus R78.81; B95.2 Infection of pacemaker lead wire T82.7XXA Endocarditis of aortic valve I35.8 UTI (urinary tract infection) N39.0 Right hip pain M25.551
[2025-05-12 06:41] LABS: Hematocrit (blood only) 24.2 % (42.0-52.0); Hemoglobin 8.2 g/dl (14.0-18.0); Immature Granulocytes # (auto) 0.02 K/uL (0.01-0.20); Immature Granulocytes % (auto) 0.8 %; Mean Corpuscular Hemoglobin 31.9 pg (25.0-34.0); Mean Corpuscular Volume 94.2 fL (80.0-100.0); Platelet Count 242 K/uL (130-400); RDW Standard Deviation 49.3 fL (36.4-46.3); Red Blood Count 2.57 M/uL (4.70-6.10); White Blood Count 2.49 K/ul (4.8-10.8)
[2025-05-12 07:38] VITALS: BP 127/70; PULSE 69; RESP 18; TEMP 97.7; O2SAT 98
[2025-05-12] MEDS: APIXABAN 5 MG TABLET PO SCH (09:15)
--- NOTE | 2025-05-12 09:16 | Discharge Summary ---
Discharge Summary Date of Service May 12, 2025 Principal Dx & Hospital Course #1 = Principal Diagnosis (1) Bacteremia due to Enterococcus: Enterococcal (faecalis) bacteremia (as noted on 05/02/2025, 2:08pm blood culture #1; on 05/04/2025, 11:23am blood culture #4), most probably due to enterococcal UTI (as noted on 05/02/2025 urine culture), both RESOLVING well with repeat blood cultures #5 and #6 (05/05/2025, 3:43pm) negative, and with final blood cultures #7 and #8 (05/06/2025, 8:48am) negative. Patient was evaluated by Infectious Disease Service of Dr. Angela Arias (05/04/2025, 4:01pm) who wrote: "Pt presenting with E. faecalis bacteremia, in the setting of recent syncope (no BCx obtained that admission), and also reporting dysuria, dizziness, and R hip pain. The source of the E. faecalis is unclear; UA with pyuria and pt with dysuria, and UCx with E. faecalis as well; CT A/P without e/o ascending UTI but does show enlarged enhancing prostate. Pt with history of AVR and PPM in place, thus is at high risk for complicated bacteremia. 05/04 TTE without reported mass/vegetation; abnormal gradient for bioprosthetic AV, severe , moderate mitral annular calcification, severe MS, elevated RVSP, borderline aortic root dilatation. Given abnormal TTE and history of AVR, will recommend to obtain RORO for further evaluation. Recommend repeating BCx q48h until clear. Would continue to monitor closely for any new/worsening focal complaints (e.g., joint pain, back pain) with low threshold to image/evaluate as possible metastatic infection. Pt with history of penicillins (rash). Will try and clarify pts penicillin allergy further to see if we are able to use ampicillin for the E. faecalis. For now, will recommend to start daptomycin. Recommendations: - Start daptomycin 750 mg IV q24h (10 mg/kg) for E. faecalis bacteremia. Will try and clarify pts penicillin allergy further to see if we are able to use ampicillin for the E. faecalis - Recommend RORO for further evaluation given bioprosthetic AVR and PPM, with abnormal TTE - Repeat BCx ordered for 05/04. Recommend repeat BCx q48h to evaluate for clearance - Continue to monitor closely for any new/worsening focal complaints (e.g., joint pain, back pain) with low threshold to image/evaluate as possible metastatic infection - If ongoing pelvic/hip pain, would consider MRI" Patient subsequently was re-evaluated by Infectious Disease Service of Dr. Angela Arias (05/05/2025, 3:26pm) who wrote: "- Continue daptomycin 750 mg IV q24h (10 mg/kg) for E. faecalis bacteremia. If tolerating amoxicillin test dose today, then will change to ampicillin 2g IV q4h and ceftriaxone 2g IV q12h for E. faecalis PPM infection and presumed PVE. - Currently anticipate at least a 6-week course, pending BCx clearance and cardiology evaluation for possible PPM removal. If PPM/lead are not able to be removed, then will need to consider indefinite suppressive therapy after completion of IV abx. - Would discuss with cardiology to see whether PPM removal is an option. Dr. Marmolejo attempting to get in touch with pts outpatient hook up Dr. Dinero - Repeat BCx ordered for 05/05 and 05/06 to establish clearance. Recommend repeat BCx q48h to evaluate for clearance - Continue to monitor closely for any new/worsening focal complaints (e.g., joint pain, back pain) with low threshold to image/evaluate as possible metastatic infection - If ongoing back or pelvic/hip pain, would consider MRI" Patient subsequently was re-evaluated by Infectious Disease Service of Dr. Angela Arias (05/06/2025, 2:56pm) who wrote: "- Continue daptomycin 750 mg IV q24h (10 mg/kg) for E. faecalis bacteremia. If tolerating amoxicillin test dose today, then will change to ampicillin 2g IV q4h and ceftriaxone 2g IV q12h for E. faecalis PPM infection and presumed PVE. - Currently anticipate at least a 6-week course, pending BCx clearance and cardiology evaluation for possible PPM removal. If PPM/lead are not able to be removed, then will need to consider indefinite suppressive therapy after completion of IV abx. - Would discuss with cardiology to see whether PPM removal is an option. Dr. Marmolejo attempting to get in touch with pts outpatient hook up Dr. Dinero - Repeat BCx ordered for 05/05 and 10/30 to establish clearance. Recommend repeat BCx q48h to evaluate for clearance - Continue to monitor closely for any new/worsening focal complaints (e.g., joint pain, back pain) with low threshold to image/evaluate as possible metastatic infection - If ongoing back or pelvic/hip pain, would consider MRI" Patient subsequently was re-evaluated by Infectious Disease Service of Dr. Angela Arias (05/07/2025, 2:55pm) who wrote: "- Continue ampicillin 2g IV q4h and ceftriaxone 2g IV q12h for E. faecalis PPM infection and presumed PVE - Would discuss with cardiology to see whether PPM removal is an option. Awaiting to hear back from patients outpatient hook up Dr. Dinero - Currently anticipate at least a 6-week course of IV antibiotics. If PPM/lead are not able to be removed, then will need to consider indefinite suppressive PO abx therapy (e.g., amoxicillin) after completion of IV abx. - F/u BCx from 05/05 and 05/06 until finalized to ensure negative - F/u C-scope results from 05/07 - Continue to monitor closely for any new/worsening focal complaints (e.g., joint pain, back pain) with low threshold to image/evaluate as possible metastatic infection - If ongoing back or pelvic/hip pain, would consider MRI" Patient subsequently was evaluated by Infectious Disease Service of Dr. Chetan Sanders (05/11/2025, 10:30am) who wrote: "Assessment & Plan (1) UTI (urinary tract infection): (2) History of aortic valve replacement: Plan Ella Mccracken is a 79-year-old man with history of history of s/p aortic valve replacement 2011, mitral valve annuloplasty, SSS s/p PPM 2011, Afib on Eliquis, CAD s/p CABG, brain aneurysm c/b SDH s/p clipping 2009, psoriatic arthritis on Taltz (ixekizumab), recent admission 04/26-04/27/25 with syncope, ED visit on 05/02/25, who presents to [facility] on 05/04/25 d/t BCx from 05/02 showing E. faecalis bacteremia. ID is consulted for E. faecalis bacteremia. The patient was recently admitted from 04/26-04/27 with fall and syncope episode with head injury. He was found to have a small scalp hematoma. His syncope was felt to be vasovagal. He had his PPM interrogated without issue. The patient was seen in the ED on 05/02/25 for increasing weakness since his hospitalization and had some dysuria. At the time, he was afebrile, WBC 9.48 Hgb 9.5 plt 215 Cr 0.81 LFTs wnl. UA with 21-50 WBCs, 3-5 RBcs, 2+ bacteria, neg nitrite, 1+ LE. He was diagnosed with UTI and discharged to complete a course of ciprofloxacin. His BCx from 05/02 are growing E. faecalis. He is also reporting R hip pain and dizziness. He still has a small amount of dysuria. 05/04 TTE without reported mass/vegetation; abnormal gradient for bioprosthetic AV, severe , moderate mitral annular calcification, severe MS, elevated RVSP, borderline aortic root dilatation. 05/[address] without fracture, showing moderate R hip OA. 05/04 head CTA showing increased size of the L parietal hematoma from prior; high-grade stenosis of the R [employer] MERCH[employer]ISING [employer], aneurysmal clips of the HERNESTO. ID Problem List: # E. faecalis bacteremia, pacemaker lead infection, presumed PVE of the aortic valve # UCx + E. faecalis, possible UTI # History of bioprosthetic AV replacement # History of mitral valve annuloplasty # History of sick sinus syndrome s/p pacemaker # History of psoriatic arthritis on Taltz (ixekizumab) # Reported antibiotic allergy: penicillins (rash) Micro Data: 05/06 BCx x2: NGTD 05/05 BCx x2: NGTD 05/04 BCx x2: E. faecalis in 1/2 sets (2/4 bottles) 05/02 BCx x2: E. faecalis in 1/2 sets (1/4 bottles) 05/02 UCx: E. faecalis Antibiotic Summary: ampicillin (05/06 present) ceftriaxone (05/06 present) prior daptomycin (05/04 05/05) amoxicillin (05/06, 05/06) vancomycin (05/04) Discussion Pt presenting with E. faecalis bacteremia, in the setting of recent syncope (no BCx obtained that admission), and also reporting dysuria, dizziness, and R hip pain. Now confirmed on RORO to have pacemaker lead infection, and although not seen on RORO presumed to have PVE of the aortic valve. 05/04 TTE without reported mass/vegetation; abnormal gradient for bioprosthetic AV, severe , moderate mitral annular calcification, severe MS, elevated RVSP, borderline aortic root dilatation. Given abnormal TTE and history of AVR/PPM, recommended RORO. 05/05 RORO showing small mobile mass on a pacemaker lead in the right atrium; bioprosthetic aortic valve without obvious masses or vegetations but image quality compromised by the structure of the valve; moderate-severe mitral stenosis, calcified mitral annulus without e/o vegetation. Awaiting to hear from cardiology to see whether PPM removal is an option. BCx from 05/02 positive; repeat BCx from 05/04 remain positive. BCx from 05/05 and 05/06 are thus far NGTD. Would continue to monitor closely for any new/worsening focal complaints (e.g., joint pain, back pain) with low threshold to image/evaluate as possible metastatic infection. If ongoing pelvic/hip or back pain, would consider MRI. On 05/06, pt reporting lower back pain with ambulation but none at rest or on palpation. The original source of the E. faecalis is unclear; UA with pyuria and pt with dysuria, and UCx with E. faecalis as well; CT A/P without e/o ascending UTI but does show enlarged enhancing prostate. Pt has not had a C-scope for >10 years, Pt with history of penicillins (rash during childhood, does not think it required hospitalization), and has tolerated a graded challenge of amoxicillin. Therefore, have changed to ampicillin and ceftriaxone. Currently anticipate at least a 6-week course of IV abx. If PPM/lead are not able to be removed, then will need to consider indefinite suppressive PO abx therapy (e.g., amoxicillin) after completion of IV abx. 05/10 No plans for PPM removal. S/p colonoscopy on 05/07 -shows Internal hemorrhoids, Diverticulosis in the sigmoid colon. One small polyp in the sigmoid colon, removed-Path tubular adenoma Worsening Leukopenia. Slight improvement today WBC 1.87--> 2.29. It is unclear if the leukopenia is secondary to ampicillin and ceftriaxone. Bone have been associated with bone marrow suppression though this is uncommon. Onset is usually after 10 to 21 days of therapy we will continue to monitor 05/11 WBC 2.81. Per chart review has had on and off leukopenia since 2018 WBC mostly around 4.0. He is scheduled for dc today pending final plan He offer no complains. Cotinue amp+ ctx for E. faecalis PPM infection and presumed PVE for now. With out removal of PPM, treatment is suppressive and not curative Recommendations: - Continue ampicillin but on discharge change from 2g IV q4h to continuous dosing at ampicillin 12 g IV q24 hours CONTINUOUS dosing -Continue ceftriaxone 2g IV q12h - Monitor CBC on ampicillin / ceftriaxone. If any concern that leukopenia is 2/2 this combo, may need to consider alternative txt - Currently anticipate at least a 6-week course of IV antibiotics. Since PPM/lead are not able to be removed at this time, will plan for indefinite suppressive PO abx therapy (e.g., amoxicillin) after completion of IV abx. - F/u BCx from 05/05 and 05/06 to ensure negative - Continue to monitor closely for any new/worsening focal complaints (e.g., joint pain, back pain) with low threshold to image/evaluate as possible metastatic infection Discussed with hospitalist SEE OPAT INSTRUCTIONS BELOW Outpatient Discharge summary, Discharging Physician please order the following on discharge: Diagnosis: E. faecalis bacteremia, pacemaker lead infection, presumed PVE of the aortic valve Organism: Enterococcus Feacalis Antibiotic: (dose and frequency) Ampicillin 12 G IV q24 hours CONTINUOUS and Ceftriaxone 2 g IV q12h Start of therapy: 05/05/25 End of therapy: 06/16/25 ( after IV abx completed, plan for PO suppression indefinitely if PPM/Leads remain in place) Labs should be faxed to ID office attention [facility] [phone] Labs needed and frequency weekly CBC with diff, BMP, LFT, esr, crp Please follow up with [facility] in outpatient clinic Clinic Address [address] [place] [address], [place] [address] Office (P) [phone] Appointment-time frame 3-4 weeks ID will sign off" Patient subsequently was discharged back to his home on 05/12/2025 with the following antibiotics: a. ampicillin 12grams IV q24 hours CONTINUOUS (start date/time, 05/12/2025, 12:30pm; stop date/time, 06/16/2025, 12:30pm), #432 grams, no refills. b. ceftriaxone 2grams IV q12 hours (start date/time, 05/12/2025, 4:30pm; stop date/time, 06/16/2025, 4:30pm), #140 grams, no refills. [facility] Navigation Teacher Ms. Sarita Avilez coordinated home infusion service to provide/administer the above antibiotics starting on 05/12/2025 and stopping after last dose/infusion on 06/16/2025. (2) Infection of pacemaker lead wire: See bullet #1 above. (3) Endocarditis of aortic valve: See bullet #1 above. (4) UTI (urinary tract infection): See bullet #1 above. (5) Right hip pain: Asymptomatic on discharge date 05/12/2025 with no pharmacologic intervention/analgesia administered on discharge date 05/12/2025. Patient was subsequently advised to follow up with his Orthopedic Surgeon Mr. Leo Garcias PA-C, on 05/25/2025, 1:00pm, for routine follow up evaluation of right hip osteoarthritis/bursitis (as noted on 05/04/2025, 1:00pm CT right hip with/without IV contrast) with consideration for possible intra-articular jay icosteroid injection as needed to mitigate right hip pain. Plan 79 years old male with PMH of DNR/DNI @ home, and the following medical issues: A. s/p aortic valve replacement 2011, mitral valve annuloplasty. B. Sick sinus syndrome, s/p PPM 2011. C. Paroxysmal atrial fibrillation, s/p PPM 2011, now with atrial pacing of heart, on rate-controlling metoprolol succinate 100mg PO bid and long-term, active anticoagulation utilizing apixaban 5mg PO bid. D. CAD, s/p CABG. E. Intracerebral aneurysm, complicated by acute SDH, followed by aneurysm clipping 2009. F. Chronic psoriatic arthritis on Taltz (ixekizumab). G. Recent admission 04/26/2025 through 04/27/2025 for syncope. who was admitted to the inpatient hospitalist service @ [facility] on 05/04/2025 with the following diagnoses: 1. Enterococcal bacteremia (as noted on 05/02/2025, 2:08pm blood culture #1; on 05/04/2025, 11:23am blood culture #4), most probably due to enterococcal UTI (as noted on 05/02/2025 urine culture), both RESOLVING well with repeat blood cultures #5 and #6 (05/05/2025, 3:43pm) negative, and with final blood cultures #7 and #8 (05/06/2025, 8:48am) negative. 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 The following medical issues are being addressed: # Enterococcus faecalis pacemaker lead infection / presumed aortic valve PVE Presumed source: UTI (Enterococcus in urine). Colonoscopy 05/07 showed small polyp, not cause of bacteremia. Cardiology consulted regarding pacemaker (placed 2011 post-valve repair for complete heart block). Patient reports Dr. Kahn saw him and recommends completing antibiotics, later pacemaker change. He is pacemaker dependent. Multiple follow up blood cultures showed no growth to date. at least 6 weeks of ampicillin and ceftriaxone per infectious disease recommendations. May need skilled nursing oral suppressive ABX. Monitoring labs. I already wrote home infusion Rx for these abx and labs has worsening leukopenia - discussed with Dr. Sanders, should stay here for monitoring. If continues worsening and related to IV ABX will need alternate regimen I reviewed medlist again and I do not see any other culprits Ordered qAM CBC with diff Once this issue is resolved or clarified he's suitable for dc home with home infusion Clarified with ID, he'll follow up with [facility] # Enterococcus UTI and elevated PSA - 9.3 May be from enterococcal infection. Duration of planned abx will treat pr ostatitis if present. Repeat PSA as outpatient after completing antibiotics. If still significantly elevated, refer to urologist # previous syncopal event - may be related to infection above CTA negative for rupture aneurysm CTA found stenosis high grade stenosis in right posterior cerebral artery patient has subarachnoid hemorrhage 10-15 years from brain aneurysm his CTA on 05/04 show clips of anterior communicating artery # stable hematoma top of head, wound covered by eschar - no evidence of infection # acute right hip pain, denied hx of trauma, or hip repair his pacemaker is not compatible with our MRI machine his CT hip show hip arthritis monitor carefully for any s/sx septic arthritis of hip walking well last several days and no c/o pain # b/l carotid stenosis, carotid stent on plavix R TCAR procedure on December 2024 # psoriatic arthritis, he's on Taltz auto-injector. Causes some amount of immunosuppression. # A-fib - continue eliquis 5mg BID, metoprolol XL 100mg # HTN - continue amlodipine 10mg daily, metoprolol # asthma not in exacerbation - he's on fluticasone-salmeterol 100 mcg-50mg q12 hours # CAD with bypass surgery 10-15 years ago, stable # History of bioprosthetic AV replacement # History of mitral valve annuloplasty # History of postop complete heart block s/p pacemaker - followed by Dr. Llanes and Dr. Dinero - he's on apixaban and plavix, pravastatin ADDENDUM: severe malnutrition - significant recent weight loss, sarcopenia, hypoalbuminemia. RD consulting, providing high protein snacks/meals # DVT Prophylaxis: apixaban Updated his at bedside 05/09 Admission HPI Per Admitting Provider Ella Muñoz is a 79 yo male with PMH Of sacroiliitis, A-fib on eliquis, subarachnoid hemorrhage 10-15 years ago at [place], hx of AVR, mitral valve annuloplasty, CAD s/p bypass surgery 13-14 years ago at [facility],psoriatic arthritis, kidney stones, asthma, BPH, outflow obstruction, coloni polyps he was in the hospital from for bleeding from scalp laceration site, passing out episode, and noted to has blood loss anemia on elquis, he's has pacemaker interrogated on that admission. yesterdady, he's was having dysuria, and came to our ED, and prescribed ciprofloxin, however, he was found to has bacteremia from enterooccus and return to ED for evaluation he was started on vancomycin on interview, he was also having right posterior hip pain, stated pain became significant when he put weight on it, he also been having dizziness episode for his Enteroccus faecalis bacteremia, he stated his colonoscopy was more than 10 years ago. for his syncope, no chest pain, no palpitation, no shortness of breath. no headache he's will need admission to medicine services for IV antibiotics, echo was ordered to r/o vegetation, ID was consulted his stated he is DNR, DNI Discharge Exam Constitutional General: Comfortable, cooperative and coherent. Wide awake and alert. Not confused, lethargic, or obtunded. Patient speaks in complete, fluent, and articulate sentences, without pause, interruption, cough, or wheeze. HEENT: NC/AT. EOMI. PERRL. No diplopia, homonymous hemianopsia, superior/inferior/nasal/temporal quadrantanopia, nystagmus, gaze paresis, ani socoria, miosis, mydriasis, chemosis, hyphema, scleral injection, conjunctivitis, pterygium, facial droop, dysarthria, or pronator drift. No otorrhea. No rhinorrhea. Neck: Supple, no stridor, bruit, or goiter. Jugular venous pressure 3 cm above the sternal angle of Baltazar, which is typically 5 cm above the right atrium. Lymph: No anterior/posterior cervical lymphadenopathy, supraclavicular/inf raclavicular lymphadenopathy, axilla/epitrochlear/inguinal lymphadenopathy. Chest: Symmetric rise and fall with respirations. Non-tender to palpation. Heart: RRR, S1 and S2. No S3 or S4 summation gallop. No tripartite friction rub. Grade II/ early systolic murmur @ LLSB without radiation to the carotids, axilla, or back, and which remains invariant in regards to the respiratory cycle. Lungs: Clear to auscultation and percussion. No audible expiratory wheeze, egophony, pectoriloquy, increase in tactile fremitus, or flatness/dullness to percussion at the bases. Abd: Soft, non-tender, non-distended. Bowel sounds auscultated in all 4 quadrants. No rebound, guarding, Corral's sign, or organomegaly. Ext: No clubbing, cyanosis, or edema. 2+ pedal pulses bilaterally. Skin: No decubitus ulcer or enanthem or exanthem. Neuro: Alert and oriented in regards to person, place, time, and situation. No tremors, tics, or myoclonus. DTR+. 5/5 motor strength in all 4 extremities, both proximally and distally. Urology: No vallejo catheter. No diaper. No urethral discharge. Discharge Plan Discharge Items Patient Disposition: Home - Self-Care Reason For Visit: BACTEREMIA, R HIP PAIN, SYNCOPE Discharge Diagnosis: 1. Enterococcal bacteremia (as noted on 05/02/2025, 2:08pm blood culture #1; on 05/04/2025, 11:23am blood culture #4), most probably due to enterococcal UTI (as noted on 05/02/2025 urine culture), both RESOLVING well with repeat blood cultures #5 and #6 (05/05/2025, 3:43pm) negative, and with final blood cultures #7 and #8 (05/06/2025, 8:48am) negative. 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 3. s/p aortic valve replacement 2011, mitral valve annuloplasty. 4. Sick sinus syndrome, s/p PPM 2011. 5. Paroxysmal atrial fibrillation, s/p PPM 2011, now with atrial pacing of heart, on rate-controlling metoprolol succinate 100mg PO bid and long-term, active anticoagulation utilizing apixaban 5mg PO bid. 6. CAD, s/p CABG. 7. Intracerebral aneurysm, complicated by acute SDH, followed by aneurysm clipping 2009. 8. Chronic psoriatic arthritis on Taltz (ixekizumab). 9. Recent admission 04/26/2025 through 04/27/2025 for syncope. Condition on Discharge: Fair Activity: Resume your previous activity Lifting: Gradually increase as tolerated Bathing: No limitations Sexual Activity: When tolerated Exercise/Sports: Gradually increase as tolerated Driving/Machine Use: No limitations Weightbearing: Full weightbearing Non-emergency contact: Primary Care Provider Call non-emergency contact if: you have any medication questions Follow-up/Referrals: Kaci Preston MD [Primary Care Provider] - 05/20/25 10:00 am Leo Garcias PA-C [Physician Seismology Technical Officer] - 05/25/25 1:00 pm Diet: Heart Healthy Christopher Attending Provider Instructions: (1) See your PCP Dr. Kaci Preston within 5-7 days of hospital discharge for routine follow up visit. (2) See your Orthopedic Surgeon Mr. Leo Garcias PA-C, on 05/25/2025, 1:00pm, for routine follow up evaluation of right hip osteoarthritis/bursitis (as noted on 05/04/2025, 1:00pm CT right hip with/without IV contrast) with consideration for possible intra-articular corticosteroid injection as needed to mitigate right hip pain. (3) See your [facility], [address] [place] [address], office phone # , in 3-4 weeks with weekly lab testing for CBC w/diff, BMP, LFT, ESR, and CRP, as per Infectious Disease Dr. Chetan Sanders. [employer] Provider Instructions: Weightbearing as tolerated on right lower extremity Currently managing his discomfort for the bursitis with IV Toradol Medicine service may consider switching him to an oral regimen of either Celebrex or meloxicam as long as his GI issues are not serious We will have him follow-up in our office in 2 weeks to reevaluate (05/25 at 1pm w/ Kulwant Garcias PA-C). At that point if he is still symptomatic we may consider a corticosteroid injection Pending Studies at Discharge: Yes Studies:: (3) See your [facility], [address] [place] [phone], office phone # , in 3-4 weeks with weekly lab testing for CBC w/diff, BMP, LFT, ESR, and CRP, as per Infectious Disease Dr. Chetan Sanders. Stand-Alone Forms: [facility] [place], Smoking Cessation Medications and DC Order Prescriptions: Continued metoprolol succinate 100 mg tablet extended release 24 hr 100 mg PO BID Qty: 180 3RF Taltz Autoinjector 80 mg/mL auto-injector 80 mg subcut Q28D Qty: 1 5RF Eliquis 5 mg tablet 5 mg PO BID Qty: 180 3RF Hold Instructions: Resume on 04/29/25. restart blood thinner in am 04/29/25 fluticasone propion-salmeterol [Wixela Inhub] 250-50 mcg/dose blister with d evice 1 inh inhalation BID Qty: 60 11RF pravastatin 10 mg tablet 10 mg PO DAILY Qty: 90 3RF cyanocobalamin (vitamin B-12) [Vitamin B-12] 1,000 mcg tablet 1,000 mcg PO QAM clopidogrel 75 mg tablet 75 mg PO QAM albuterol sulfate 90 mcg/actuation Hfa Aerosol Inhaler 2 puff INHALATION Q4 PRN (Reason: Shortness Of Breath Or Wheezing) amlodipine 10 mg tablet 10 mg PO QAM Discontinued ciprofloxacin HCl 500 mg tablet 500 mg PO Q12H Qty: 20 0RF Discharge Orders: Discharge Order (Routine); Ordered 05/12/25 Ordered By: Galen Caba Admission Data Admit Date/Time: 05/04/25 12:33 Attending Provider: Galen Caba Admit Provider: Gris Marmolejo Primary Care Provider: Kaci Preston V. Other Providers: Neel Barry; Selina Delgado; Francine Lyles; Adali Barnes; Chetan Sanders; Oneyda Cavazos; Anegla Arias; Rolando Schafer; Karma,Ian; [facility] Stay Data Consultations 05/04/25 11:24 ED Decision to Admit Stat 05/04/25 11:37 Consult Infectious Diseases Stat 05/05/25 15:36 Consult Gastroenterology Routine Procedures Performed Operation Date: 05/07/25 16:45 Actual Procedures p Colonoscopy Polypectomy - Rolando Schafer MD Diagnostic Imagining Performed 05/04/25 13:00 CT Abd and Pelvis [CT abdomen pelvis wo/w con] Stat CT hip RT wo/w con Stat 05/04/25 13:01 CTA head w con [CT angio head w con] Stat Pending Results Patient Have Any Pending Studies at Discharge: Yes Discharge Instructions Given to Patient (Per Discharging Provider) (1) See your PCP Dr. Kaci Preston within 5-7 days of hospital discharge for routine follow up visit. (2) See your Orthopedic Surgeon Mr. Leo Garcias PA-C, on 05/25/2025, 1:00pm, for routine follow up evaluation of right hip osteoarthritis/bursitis (as noted on 05/04/2025, 1:00pm CT right hip with/without IV contrast) with consideration for possible intra-articular corticosteroid injection as needed to mitigate right hip pain. (3) See your [facility], [address] [place] [address], [place] [address], office phone # , in 3-4 weeks with weekly lab testing for CBC w/diff, BMP, LFT, ESR, and CRP, as per Infectious Disease Dr. Chetan Sanders. Total Time Total Time Spent Total Time Spent (In Minutes): 35 minutes. Of this time period, 19 minutes were spent in coordinating patient's discharge. 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
== END 2025-05-12 10:11 | disposition home health service (06) | DRG 314 ==
LOC: ED 10:38 → EDINP 12:33 → SUATTDRO 12:33 → 2N 13:34